=== PATIENT | female | born 2005 | race Caucasian/White ===

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

== ENCOUNTER 2024-11-25 13:23 | Outpatient (OUT) | payer OTHER, SELFPAY ==
--- OUTSIDE RECORDS SUMMARY | 2024-11-25 13:27 | XMS_ITS | Encounter Summary ---
Author Organization [facility] Address [address] [place] [address] Care Team Providers Care Business Development Assistant Name Role Phone Unavailable Primary Care Provider Unavailabl e Encounter Details Date Type Department Care Team (Late st Contact Info) Description 11/22/2023 Clinisync Result Encounter [facility] External Department Unsolicited Rogelio Rm DO [address] [place], [place] [id number] Social History Tobacco Use Types Packs/Day Years Used Date Smoking Tobacco: Every Day Smokeless Tobacco: Never Alcohol Use Standard Drinks/Week Comments Never 0 (1 standard drink = 0.6 oz pur e alcohol) Comments No Sex and Gender Information Value Date Recorded Sex Assigned at Female 10/15/2023 9:14 AM EDT Legal Sex Female 7:14 PM EDT Gender Identity Female 10/15/2023 9:14 AM EDT Sexual Orientation Straight 10/15/2023 9: 14 AM EDT documented as of this encounter Plan of Treatment Upcoming Encounters Date Type Department Care Team (Late st Contact Info) Description 12/14/2024 11:30 AM EDT Office Visit [facility] OB [address] [place] [phone] Jocelyne Odell PA [address] [place] [address] documented as of this encounter Procedures Procedure Name Priority Date/Time Associated Diagnosis Comments US PELVIS 11/22/2023 11:14 AM EDT documented in this encounter Results * US PELVIS (11/22/2023 11:14 AM EDT) Anatomical Region Laterality Modality Other 11/22/2023 11:1 4 AM EDT Narrative 11/23/2023 8:12 AM EDT Interpreted By: Josie Calix, STUDY: US PELVIS; 11/22/2023 12:32 pm INDICATION: Signs/Symptoms:PELVIC PAIN. COMPARISON: No prior ACCESSION NUMBER(S): [id number] ORDERING CLINICIAN: ROGELIO RM TECHNIQUE: Multiple multiplanar static vilchis scale, color and spectral waveform sonographic images of the pelvis were obtained. Transabdominal ultrasound was performed. Patient declined transvaginal imaging. FINDINGS: UTERUS: The uterus measures 5.7 cm x 3.8 cm x 8.1 cm. The myometrium is mildly heterogeneous with no focal mass visualized. The uterus is anteverted. ENDOMETRIUM: The endometrium measures a thickness of 0.3 cm, which is normal. IUD is present, in the expected position of the endometrium in the uterine body and fundus. Trace endometrial canal fluid noted. RIGHT ADNEXA: The right ovary measures 2.2 cm x 1.5 cm x 3.3 cm and demonstrates normal Doppler flow. No right adnexal masses are seen, no hydrosalpinx. LEFT ADNEXA: The left ovary measures 2.5 cm x 1.8 cm x 3.2 cm and demonstrates normal Doppler flow. No left adnexal masses are seen, no hydrosalpinx. CUL DE SAC: No free pelvic fluid. IMPRESSION: 1. IUD is in the expected position. Uterus and ovaries appear normal. MACRO: None Signed by: Josie Calix 11/23/2023 8:12 AM Dictation workstation: [id number] Procedure Note Radiology, Radiologist, MD - 11/23/2023 Interpreted By: Josie Calix, STUDY: US PELVIS; 11/22/2023 12:32 pm INDICATION: Signs/Symptoms:PELVIC PAIN. COMPARISON: No prior ACCESSION NUMBER(S): [id number] ORDERING CLINICIAN: ROGELIO RM TECHNIQUE: Multiple multiplanar static vilchis scale, color and spectral waveform sonographic images of the pelvis were obtained. Transabdominal ultrasound was performed. Patient declined transvaginal imaging. FINDINGS: UTERUS: The uterus measures 5.7 cm x 3.8 cm x 8.1 cm. The myometrium is mildly heterogeneous with no focal mass visualized. The uterus is anteverted. ENDOMETRIUM: The endometrium measures a thickness of 0.3 cm, which is normal. IUD is present, in the expected position of the endometrium in the uterine body and fundus. Trace endometrial canal fluid noted. RIGHT ADNEXA: The right ovary measures 2.2 cm x 1.5 cm x 3.3 cm and demonstrates normal Doppler flow. No right adnexal masses are seen, no hydrosalpinx. LEFT ADNEXA: The left ovary measures 2.5 cm x 1.8 cm x 3.2 cm and demonstrates normal Doppler flow. No left adnexal masses are seen, no hydrosalpinx. CUL DE SAC: No free pelvic fluid. IMPRESSION: 1. IUD is in the expected position. Uterus and ovaries appear normal. MACRO: None Signed by: Josie Calix 11/23/2023 8:12 AM Dictation workstation: [id number] Rogelio Rm DO [facility] Final Result documented in this encounter Visit Diagnoses Not on filedocumented in this encounter
--- OUTSIDE RECORDS SUMMARY | 2024-11-25 13:27 | XMS_ITS | Clinical Summary ---
Author Organization [facility] Address [address] [place] [address] Care Team Providers Care Photovoltaic Testing Technician Name Role Phone Unavailable Primary Care Provider Unavailabl e Allergies No known active allergies Medications Vit-Fe Fumarate-FA ( VITAMIN PO) Take by mouth. Active Active Problems Patient Care Coordination No te Formatting of this note migh t be different from the original. No PCP. No additional problems on file Encounters Date Type Department Care Team Description 08/28/2024 4:47 PM EDT - 08/28/2024 8:10 PM EDT Emergency [facility] Emergency Department [address] [place] [phone] Discharge Disposition: Home or Self Care 08/28/2024 Travel from Last 3 Months Social History Tobacco Use Types Packs/Day Years Used Date Smoking Tobacco: Never Smokeless Tobacco: Never Tobacco Cessation:Counseling Given: Not Answered Alcohol Use Standard Drinks/Week Comments Never 0 (1 standard drink = 0.6 oz pur e alcohol) [place] Depression Scale Answer Date Recorded [place] Depression Score 0 11/29/2022 Thought Of Harming Self Unrecognized value 11/29 Comments No Sex and Gender Information Value Date Recorded Sex Assigned at Not on file Legal Sex Female 12:28 AM EDT Gender Identity Not on file Sexual Orientation Not on file Last Filed Vital Signs Vital Sign Reading Time Taken Comments Blood Pressure 109/58 08/28/2024 6:30 PM EDT Pulse 87 08/28/2024 6:30 PM EDT Temperature 37 C (98.6 F) 08/28/2024 4:45 PM EDT Respiratory Rate 16 08/28/2024 4:45 PM EDT Oxygen Saturation 100% 08/28/2024 6:30 PM EDT Inhaled Oxygen Concentration - - Weight 61.2 kg (135 lb) 11/29/2022 2:52 PM EDT Height 160 cm (5' 3 ) 11/28/2022 9:30 AM EDT Body Mass Index 23.91 11/28/2022 9:30 AM EDT Plan of Treatment Health Maintenance Due Date Last Done Comments HEPATITIS C VIRUS SCREENING 2004 HIV SCREENING DISCUSSION 10/26/2019 HPV VACCINE ADOL (1 - 3-dose series) 10/26/2019 HPV VACCINE (1 - 3-dose series) 10/26/2019 CHLAMYDIA SCREEN 11/08/2023 11/07/2022 GONORRHEA SCREEN 11/08/2023 11/07/2022 COVID-19 VACCINE ( season) 2024 INFLUENZA VACCINE (#1) 01/25/202504/18/200 9, 04/30/2006, 05/16/2005 TETANUS 10/08/2032 10/08/2022, 11/25, 05/16/2005, Additional history exists HEP B VACCINE Completed 05/16/2005, 04/27, 01/10/2005, Additional history exists HIB VACCINE Discontinued 04/30/2006, 04/27, 04/03/2005, Additional history exists PNEUMOCOCCAL VACCINE SERIES Aged Out 04/30/2006, 01/21/2006, 05/16/2005, Additional history exists No longer eligible based on patient's age to complete this topic MMR VACCINE Discontinued 08/23/2009, 04/30/2006 VARICELLA VACCINE Discontinued 08/23/2009, 01/21/2006 MCV4 VACCINE Discontinued 12/18/2016 DTAP/TDAP/TD VACCINE Discontinued 10/08/2022, 12/18/2016, 08/23/2009, Additional history exists TDAP (ADULT) Completed 10/08/2022, 11/25, 05/16/2005, Additional history exists Procedures Procedure Name Priority Date/Time Associated Diagnosis Comments US PELVIC W TRANSVAGINAL STAT 08/28/2024 5:57 PM EDT URINE MICROSCOPIC Routine 08/28/2024 5:2 1 PM EDT URINALYSIS, MACRO STAT 08/28/2024 5:2 1 PM EDT URINE CULTURE Routine 08/28/2024 5:21 PM EDT CA 125 STAT 08/28/2024 5:15 PM EDT HC CBC EDIFF & PLATELET STAT 08/28/2024 5:15 PM EDT BETA HCG, QUAL, BLOOD STAT 08/28/2024 5:15 PM EDT LIPASE STAT 08/28/2024 5:15 PM EDT HEPATIC FUNCTION PANEL STAT 08/28/2024 5:15 PM EDT CHEM 7 (LYTES,BUN,CREA,GLUC) STAT 08/28/2024 5:15 PM EDT CHLAMYDIA/GONOCOCCUS, KRZYSZTOF Today 11/07/2022 1:15 AM EDT from Last 3 Months or Most Recently Relevant to Health Maintenance Results * US PELVIC W TRANSVAGINAL (08/28/2024 5:57 PM EDT) Anatomical Region Laterality Modality Pelvis Ultrasound 08/28/2024 5:13 PM EDT Impressions 08/28/2024 7:41 PM EDT IMPRESSION: 1. A complex 4.86 cm partially cystic hypoechoic mass within the right adnexal region may be an endometrioma or hemorrhagic cyst. No hypervascularity to suggest a tubo-ovarian abscess is seen. Correlation with the patient's status is recommended as an ectopic would be in the differential. If this is the right ovary, blood flow was not documented to exclude torsion. 2. Normal left ovary. 3. IUD in place. Narrative 08/28/2024 7:41 PM EDT EXAM: US PELVIC W TRANSVAGINAL HISTORY: pelvic pain COMPARISON: October 22, 2023 TECHNIQUE: Transabdominal and endovaginal ultrasound of the pelvis with grayscale and Doppler interrogation FINDINGS: The uterus is anteverted, measuring 9.45 cm in length x 3.71 cm AP x 6.15 cm transverse. There is an IUD within the endometrial canal centered at the uterine body and fundus. The endometrium was not measured. There is a complex partially cystic hypoechoic mass within the right adnexal region measuring 4.86 x 4.11 x 3.42 cm. The left ovary measured 2.78 x 1.86 x 2.37 cm. Blood flow within the left ovary documented with color Doppler. No significant free fluid within the pelvis. Procedure Note Demarco Hernandez MD - 08/28/2024 EXAM: US PELVIC W TRANSVAGINAL HISTORY: pelvic pain COMPARISON: October 22, 2023 TECHNIQUE: Transabdominal and endovaginal ultrasound of the pelvis with grayscale and Doppler interrogation FINDINGS: The uterus is anteverted, measuring 9.45 cm in length x 3.71 cm AP x 6.15cm transverse. There is an IUD within the endometrial canal centered at the uterine body and fundus. The endometrium was not measured. There is a complex partially cystic hypoechoic mass within the rightadnexal region measuring 4.86 x 4.11 x 3.42 cm. The left ovary measured 2.78 x1.86 x 2.37 cm. Blood flow within the left ovary documented with color Doppler.No significant free fluid within the pelvis. IMPRESSION IMPRESSION: 1. A complex 4.86 cm partially cystic hypoechoic mass within the rightadnexal region may be an endometrioma or hemorrhagic cyst. No hypervascularity to suggest a tubo-ovarian abscess is seen. Correlation with the patient's status is recommended as an ectopic would be in the differential. If this is the right ovary, blood flow was not documented to exclude torsion. 2. Normal left ovary. 3. IUD in place. us Ketty Hoover PA-C US ORDERABLES Final Result * (ABNORMAL) URINALYSIS, MACRO (08/28/2024 5:21 PM EDT) Color, Urine YELLOW YELLOW [address] Appearance, Urine CLEAR CLEAR [address] Specific [place], Urine 1.020 1.010 - 1.[address] PH URINE 7.5(H) 5.0 - 7.[address] Urine Protein 100(A) NEGATIVE mg/dl [address] Glucose, Urine NEGATIVE NEGATIVE mg/dl [address] Ketones, Urine NEGATIVE NEGATIVE mg/dl [address] BILIRUBIN, URINE NEGATIVE NEGATIVE [address] BLOOD, URINE DIPSTICK LARGE(A) NEGATIVE [address] Nitrites, Urine NEGATIVE NEGATIVE [address] Urobilinogen, Urine 0.2 0.2 - 1.0 E.U./dL [address] Leukocyte esterase, Urine NEGATIVE NEGATIVE [address] 08/28/2024 5:21 PM EDT 08/28/2024 5:38 PM EDT us Ketty Hoover PA-C BODY FLUIDS & STOOLS ORDERABLES Final Result [address] [place] [address] * URINE MICROSCOPIC (08/28/2024 5:21 PM EDT) WBC, Urine NEGATIVE NEGATIVE /HPF [address] RBC, Urine 5 TO 10 NEGATIVE /HPF [address] Epithelial Cells UA 1 TO 5 /HPF [address] Mucus NEGATIVE NEGATIVE [address] Bacteria, Urine NEGATIVE NEGATIVE [address] CRYSTALS, URINE NONE NONE [address] CASTS, URINE NONE NONE /LPF [address] COMMENT, URINE REFLEX CULTURE PER ESTABLISHED CRITERIA. [address] 08/28/2024 5:21 PM EDT 08/28/2024 5:38 PM EDT Ketty Hoover PA-C BODY FLUIDS & STOOLS ORDERABLES Final Result [address] [address] * URINE CULTURE (08/28/2024 5:21 PM EDT) SPECIMEN DESCRIPTION URINE CLEAN CATCH [address] RESULT-CULT NO PATHOGENS ISOLATED [address] Comment:Testing performed at [place], [place] [address] Report Status 08/31/[address] Comment:FINAL 08/28/2024 5:21 PM EDT 08/28/2024 5:38 PM EDT Ketty Hoover PA-C MICROBIOLOGY - GENERAL ORDERABLE S Final Result Performing Organization Address [facility]/ZIP Co de Phone Number [address] [place] [address] [address] * BETA HCG, QUAL, BLOOD (08/28/2024 5:15 PM EDT) BETA HCG (QUAL), SERUM NEGATIVE NEGATIVE [address] Blood 08/28/2024 5:15 PM EDT 08/28/2024 5:18 PM EDT Ketty Hoover PA-C ENDOCRINOLOGY Final Result [address] [place] [address] * (ABNORMAL) CHEM 7 (LYTES,BUN,CREA,GLUC) (08/28/2024 5:15 PM EDT) Glucose 91 70 - 100 MG/DL [address] Comment: NORMAL <100 mg/dL PREDIABETES 101-126 mg/dL DIABETES 126 mg/dL or higher BUN 18 7 - 20 MG/DL [address] CREATININE SERUM 0.58(L) 0.70 - 1.20 MG/DL [address] SODIUM 143 137 - 145 MMOL/L [address] Potassium 3.8 3.5 - 5.1 MMOL/L [address] CHLORIDE 101 98 - 107 MMOL/L [address] Comment:Please note: Triglyc eride levels of 600mg/dL or higher may positively bias chloride results by approximately 2.1 mmol CARBON DIOXIDE (CO2) 29 22 - 30 MMOL/L [address] ESTIMATED GFR, NON AMER 142 ml/min/1. 73sq.m [address] ESTIMATED GFR, 172 ml/min/1. 73sq.m [address] GFR COMMENT Average GFR for 18-29 years old = 116. [address] Comment: Chronic Kidney disease, GFR = <60. Kidney failure, GFR = <15. The GFR estimate is not adjusted for extreme body surface area or acute process, nor has it been validated for women or ethnic groups other than and . Blood 08/28/2024 5:15 PM EDT 08/28/2024 5:18 PM EDT us Ketty Hoover PA-C CHEMISTRY ORDERABLES Final Resul t [address] [place] [address] * CBC, EDIF, PLATELET (08/28/2024 5:15 PM EDT) WBC (WHITE BLOOD COUNT) 9.6 3.6 - 11.0 10*3/uL [address] RBC 4.81 4.0 - 5.4 10*6/uL [address] HEMOGLOBIN (HGB) 13.3 12.0 - 16.0 G/DL [address] HEMATOCRIT (HCT) 40.8 36.0 - 48.0 % [address] Mean Cell Volume 84.8 80.0 - 100.[address] Mean Cell HGB 27.6 26.0 - 35.[address] Mean Cell HGB Concentration 32.6 27.0 - 37.0 G/DL [address] RBC Distribution 14.3 11.5 - 14.5 % [address] PLATELET COUNT 298 130 - 400 10*3/uL [address] Mean Platelet Volume 7.5 7.4 - 11.[address] DIFFERENTIAL TYPE AUTO DIFF % ON [address] NEUTROPHILS 57.2 37.0 - 75.0 % [address] LYMPHOCYTE 31.4 20.0 - 55.0 % [address] MONOCYTE % 7.7 0.0 - 10.0 % [address] EOSINOPHIL % 3.1 0.0 - 11.0 % [address] BASOPHIL % 0.6 0.0 - 2.0 % [address] Absolute Neutrophil Count 5.5 1.4 - 6.5 10*3/uL [address] LYMPHOCYTES, ABSOLUTE 3.0 1.2 - 3.4 10*3/uL [address] MONOCYTES, ABSOLUTE 0.7 0.0 - 0.7 10*3/uL [address] ABSOLUTE EOSINOPHIL COUNT 0.3 0.0 - 0.7 10*3/uL [address] ABSOLUTE BASOPHIL COUNT 0.1 0.0 - 0.2 10*3/uL [address] Blood 08/28/2024 5:15 PM EDT 08/28/2024 5:18 PM EDT Ketty ROGER-C HEMATOLOGY ORDERABLES Final Resu lt Performing Organization Address City/[facility]/ZIP Co de Phone Number [address] [address] * CA 125 (08/28/2024 5:15 PM EDT) CA125 Cancer Ag 7.4 [facility] Comment: Reference range: 0.0 to 38.1 Unit: U/mL (NOTE) [facility] Electrochemiluminescence Immunoassay (ECLIA) Values obtained with different assay methods or kits cannot be used interchangeably. Results cannot be interpreted as absolute evidence of the presence or absence of malignant disease. PERFORMED AT [facility] Blood 08/28/2024 5:15 PM EDT 08/28/2024 7:57 PM EDT Ketty ROGER-C IMMUNOLOGY ORDERABLES Final Resu lt Performing Organization Address [facility] Co de Phone Number [facility] [address] [place] [address] * LIPASE (08/28/2024 5:15 PM EDT) LIPASE 37 23 - 300 U/L [address] Blood 08/28/2024 5:15 PM EDT 08/28/2024 5:18 PM EDT Ketty ROGER-C CHEMISTRY ORDERABLES Final Resul t Performing Organization Address City/[facility]/ZIP Co de Phone Number [address] [address] * HEPATIC FUNCTION PANEL (08/28/2024 5:15 PM EDT) Albumin 4.9 3.5 - 5.0 G/DL [address] BILIRUBIN, TOTAL 0.3 0.2 - 1.3 MG/DL [address] ALKALINE PHOSPHATASE 52 38 - 126 IU/L [address] AST 28 14 - 36 IU/L [address] BILIRUBIN, DIRECT 0.0 0.0 - 0.4 MG/DL [address] PROTEIN, TOTAL 7.7 6.3 - 8.2 GM/DL [address] ALT 16 <35 IU/L [address] Blood 08/28/2024 5:15 PM EDT 08/28/2024 5:18 PM EDT Ketty Hoover PA-C CHEMISTRY ORDERABLES Final Resul t [address] [address] * CHLAMYDIA/GONOCOCCUS, KRZYSZTOF (11/07/2022 1:15 AM EDT) CHLAMYDIA TRACHOMATIS NOT DETECTED NOT DETECTED [address] NEISSERIA GONORRHOEAE NOT DETECTED NOT DETECTED [address] Vaginal Pool SPECIMEN FROM VAGINA / Unknown 11/07/2022 1:15 AM EDT 11/07/2022 2:13 AM EDT Meagan Jones MD MICROBIOLOGY - GENERAL ORDERA BLES Final Result [address] [address] from Last 3 Months or Most Recently Relevant to Health Maintenance Insurance [facility] Advance Directives For more information, please contact: [phone] (7:30 AM - 6PM [facility], Saturday-Saturday) * Full Code (Latest Code Status on File) Date Activated Date Inactivated Comments 11/29/2022 2:25 PM
--- OUTSIDE RECORDS SUMMARY | 2024-11-25 13:27 | XMS_ITS | Encounter Summary ---
Author Organization [facility] Address [address] [place] [address] Care Team Providers Care Gas Well Drilling Manager Name Role Phone Unavailable Primary Care Provider Unavailabl e Encounter Details Date Type Department Care Team (Late st Contact Info) Description 11/08/2023 Abstract [facility] OB [address] [place] [address] Gemini Aleman LPN [address] [place] [address] Social History Tobacco Use Types Packs/Day Years [...] EDT Office Visit [facility] [address] [place] [address] Jocelyne Odell PA [address] [facility] [address] documented as of this encounter Visit Diagnoses Not on filedocumented in this encounter
--- OUTSIDE RECORDS SUMMARY | 2024-11-25 13:27 | XMS_ITS | Clinical Summary ---
Author Organization [facility] Address [address] [place] [address] Phone Care Team Providers Care Malthouse Laborer Name Role Phone Generic Provider, No Assigned Pcp MD Primary Car e Provider Unavailable Allergies No known active allergies Medications medroxyPROGESTER one, 3-month, (Depo-subQ provera 104) 104 mg/0.65 mL injection Inject 0.65 mL (104 mg) under the skin every 3 months. Active Social History Tobacco Use Types Packs/Day Years Used Date Smoking Tobacco: Never Assessed Comments No Sex and Gender Information Value Date Recorded Sex Assigned at Not on file Legal Sex Female 1:44 PM EDT Gender Identity Not on file Sexual Orientation Straight 10/18/2023 5: 13 PM EDT Last Filed Vital Signs Vital Sign Reading Time Taken Comments Blood Pressure 108/69 10/18/2023 1:22 PM EDT Pulse 111 10/18/2023 1:22 PM EDT Temperature 36.6 C (97.9 F) 10/18/2023 1:22 PM EDT Respiratory Rate 16 10/18/2023 1:22 PM EDT Oxygen Saturation 97% 10/18/2023 1:22 PM EDT Inhaled Oxygen Concentration - - Weight 54.4 kg (120 lb) 10/18/2023 1:22 PM EDT Height 160 cm (5' 3 ) 10/18/2023 1:22 PM EDT Body Mass Index 21.26 10/18/2023 1:22 PM EDT Plan of Treatment Health Maintenance Due Date Last Done Comments HIV Screening 2004 Lipid Panel 2004 Hearing Screening (#1) 2008 HPV Vaccines (1 - 3-dose series) 10/26/2019 Meningococcal B Vaccine (1 of 2 - Standard) 2020 Hepatitis C Screening 2022 Pneumococcal Vaccine: Pediatrics and At-Risk Adult Patients (1 of 2 - PCV) 10/26/2023 04/30/2006, 01/21/2006, 05/16/2005, Additional history exists COVID-19 Vaccine ( - season) 2024 Yearly Adult Physical 06/05/2024 06/04/2023 Influenza Vaccine (Season Ended) 2025 04/18/2009, 04/30/2006, 05/16/2005 DTaP/Tdap/Td Vaccines (8 - Td or Tdap) 10/08/2032 10/08/2022, 12/18/2016, 08/23/2009, Additional history exists Zoster Vaccines (1 of 2) 2054 08/23/2009, 12/26 Hepatitis B Vaccines Completed 05/16/2005, 01/10/2005, 2004 HIB Vaccines Completed 04/30/2006, 04/27, 04/03/2005, Additional history exists IPV Vaccines Completed 08/23/2009, 04/27, 04/03/2005, Additional history exists MMR Vaccines Completed 08/23/2009, 04/30/2006 Varicella Vaccines Completed 08/23/2009, 01/21/2006 Meningococcal Vaccine Aged Out 12/18/2016 No enma tree eligible based on patient's age to complete this topic Hepatitis A Vaccines Aged Out No long er eligible based on patient's age to complete this topic Rotavirus Vaccines Aged Out No longer eligible based on patient's age to complete this topic [place] [address] [place] [address] PLAN PLAN Care Teams Malthouse Laborer Relationship Specialty Start Date End Date Generic Provider, [place] [address] PCP - General Hides And Skins Colorer 10/18/23
--- OUTSIDE RECORDS SUMMARY | 2024-11-25 13:27 | XMS_ITS | Encounter Summary ---
Author Organization [facility] Address [address] [place] [address] Phone Care Team Providers Care Community Relations Representative Name Role Phone Generic Provider, No Assigned Pcp Primary Car e Provider Unavailable Encounter Details Date Type Department Care Team (Latest Contact Info) Description 11/20/2023 Transcribe Orders [facility] [address] [place] [address] Ross Rm, DO [address] [facility] [address], [place] [address] Pelvic and perineal pain (Primary Dx) Social History Tobacco Use Types Packs/Day Years Used Date Smoking Tobacco: Never Assessed Comments No Sex and Gender Information Value Date Recorded Sex Assigned at Not on file Legal Sex Female 1:44 PM EDT Gender Identity Not on file Sexual Orientation Straight 10/18/2023 5: 13 PM EDT COVID-19 Exposure Response Date Recorded In the last 10 days, have yo u been in contact with someone who was confirmed or suspected to have Coronavirus/COVID-19? No / Unsure 11/22/2023 11:11 AM EDT documented as of this encounter Plan of Treatment Not on file documented as of this encounter Visit Diagnoses Diagnosis Pelvic and perineal pain- Primary documented in this encounter Care Teams Community Relations Representative Relationship Specialty Start Date End Date Generic Provider, No [place] [address] PCP - General Professor Of Geography 10/18/23 documented as of this encounter
--- NOTE | 2024-11-25 13:51 | XR_ITS ---
The [address] [address] Patient Name: CONCHA ALARCON MRN: [id number] date: 2005 Sex: F [facility] Current Patient Location: [facility] Accession/Order Number: [id number] Exam Date: 11/25/2024 14:48 Report Date: 11/25/2024 14:48 At the request of: ROGELIO MOLINA DO Procedure: XR chest 2V Chest 2 views CLINICAL HISTORY: Pre Op COMPARISON: None FINDINGS: Heart normal in size. Lungs are clear. No free air. XR/XR chest 2V IMPRESSION: NO ACUTE CARDIOPULMONARY ABNORMALITY. Impression dictated by: Rosanne Light Jr.OAzul 11/25/2024 2:48 PM Dictation Location: [place] [address] Electronically authenticated by: [id number] Y Date: 11/25/2024 14:48
== END 2024-11-25 13:24 | disposition home or self-care (01) ==
PROVIDERS: Visit Provider Obstetrics & Gynecology
DX: Z01.812 Encounter for preprocedural laboratory examination (principal); N83.201 Unspecified ovarian cyst, right side; R10.2 Pelvic and perineal pain
CPT/HCPCS: 71046

== ENCOUNTER 2024-12-04 06:03 | Day surgery (SDC) | payer OTHER, SELFPAY ==
[2024-11-25 13:58] VITALS: BP 116/74; PULSE 96; TEMP 36.5; O2SAT 100; BMI 19.0
[2024-12-04] VITALS (12 sets, daily range): BP systolic 95–129; BP diastolic 50–69; PULSE 49–90; TEMP 36.1–36.3; O2SAT 96–100
--- OUTSIDE RECORDS SUMMARY | 2024-12-04 06:06 | XMS_ITS | Clinical Summary ---
Author Organization [facility] Address [address] [place] [address] Phone Care Team Providers Care Medical Or Surgical Instrument Maker Name Role Phone Generic Provider, No Assigned [...] 01/21/2006, 05/16/2005, Additional history exists COVID-19 Vaccine (1 - season) 2024 Yearly Adult Physical 06/05/2024 06/04/2023 Influenza Vaccine (#1) 2025 9, 04/30/2006, 05/16/2005 DTaP/Tdap/Td Vaccines (8 - Td [...] patient's age to complete this topic Insurance [facility] PLAN PLAN Care Teams Medical Or Surgical Instrument Maker Relationship Specialty Start Date End Date Generic Provider, No [place] [address] PCP - General Designer Writer 10/18/23
--- OUTSIDE RECORDS SUMMARY | 2024-12-04 06:06 | XMS_ITS | Clinical Summary ---
Author Organization [facility] Address [address] [place] [address] Care Team Providers Care Oncology Rn Name Role Phone Unavailable Primary Care Provider Unavailabl e Allergies No known active allergies Medications Acetaminophen (MIDOL PO) Take by mouth Active ibuprofen 600 MG tablet Take 1 tablet by mouth every 6 (six) hours if needed 07/17/2023 Active desogestrel-ethi nyl estradiol (Apri) 0.15-30 MG-MCG tabletIndication s:Abnormal bleeding in menstrual cycle Take 1 tablet by mouth Daily for 28 days Take 1 tablet by mouth daily 28 tablet 11 09/30/2024 Active Hospital, Clinic, or Other Facility Administered Medication Ordered Dose Route Frequency Start Date End Date Status Levonorgestrel intrauterine device 52 mgIndications:Encoun ter for IUD insertion 52 mg IU Continuous 10/28/2023 11/05/2024 Discontinued Active Problems Problem Noted Date Diagnosed Date Encounter for weight management 11/05/2024 Right ovarian cyst 11/05/2024 Pelvic pain 11/05/2024 Encounters Date Type Department Care Team Description 11/25/2024 Clinisync Result Encounter [facility] External Department Unsolicited Rogelio Rm DO 11/05/2024 10:10 AM EDT Consult [facility] [address] [place] [address] Rogelio Rm DO Pre-op examination; Pelvic pain; Right ovarian cyst 11/03/2024 11:00 AM EDT Ancillary Procedure [facility] [address] [place] [address] Encounter for IUD removal 09/30/2024 Telephone [facility] [address] [place] [id number] Rogelio Rm DO 09/28/2024 2:30 PM EDT Procedure Visit [facility] [address] [facility] [address] Sujey Rogelio Right ovarian cyst (Primary Dx); Encounter for IUD removal; Pelvic pain in female from Last 3 Months Family History Medical History Relation Name Comments Cancer Maternal Grandmother Samaria rausch Migraines Mother Jing Eckert Diabetes Paternal Grandfather Damon ardon Relation Name Status Comments Maternal Grandmother Samaria rausch Mother Jing Eckert Paternal Grandfather Damon ardon Social History Tobacco Use Types Packs/Day Years Used Date Smoking Tobacco: Every Day Smokeless Tobacco: Never Tobacco Cessation:Ready to Q uit: Not Asked; Counseling Given: Not Answered Alcohol Use Standard Drinks/Week Comments Never 0 (1 standard drink = 0.6 oz pur e alcohol) Comments No Sex and Gender Information Value Date Recorded Sex Assigned at Female 10/15/2023 9:14 AM EDT Legal Sex Female 7:14 PM EDT Gender Identity Female 10/15/2023 9:14 AM EDT Sexual Orientation Straight 10/15/2023 9: 14 AM EDT Last Filed Vital Signs Vital Sign Reading Time Taken Comments Blood Pressure 112/70 11/05/2024 10:34 AM EDT Pulse - - Temperature - - Respiratory Rate - - Oxygen Saturation - - Inhaled Oxygen Concentration - - Weight 49.1 kg (108 lb 4 oz) 11/05/2024 10:34 AM EDT Height 160 cm (5' 3 ) 11/25/2023 10:09 AM EDT Body Mass Index 19.18 11/25/2023 10:09 AM EDT Plan of Treatment Upcoming Encounters Date Type Department Care Team (Late st Contact Info) Description 12/14/2024 11:30 AM EDT Office Visit [facility] [address] [facility] [place] [phone] Jocelyne Odell PA [address] [place] [address] Procedures Procedure Name Priority Date/Time Associated Diagnosis Comments XR CHEST 2V 11/25/2024 2:48 PM EDT US PELVIS Routine 11/03/2024 10:50 AM EDT Encounter for IUD removal IUD REMOVAL Routine 09/28/2024 3:41 PM EDT Encounter for IUD removal Right ovarian cyst Pelvic pain in female from Last 3 Months Results * XR CHEST 2V (11/25/2024 2:48 PM EDT) Anatomical Region Laterality Modality Other 11/25/2024 2:48 PM EDT Narrative 11/25/2024 2:51 [place] [address] XRay Report Signed Patient: ELI ARDON MR#: [id number] : 2005 Acct:[id number] Age/Sex: 19 / F ADM Date: 11/25/24 Loc: [facility] Attending Dr: Rogelio Rm D.O. Ordering Physician: Rogelio Rm D.O. Date of Service: 11/25/24 Procedure(s): XR chest 2V Accession Number(s): [id number] cc: Rogelio Rm D.O.; Physician,Non-Staff M.Rosanne The [place] [address] Patient Name: ELI ARDON MRN: [facility]:[id number] date: 2005 Sex: F [facility] Current Patient Location: [facility] Accession/Order Number: [id number] Exam Date: 11/25/2024 14:48 Report Date: 11/25/2024 14:48 At the request of: ROGELIO RM DO Procedure: XR chest 2V Chest 2 views CLINICAL HISTORY: Pre Op COMPARISON: None FINDINGS: Heart normal in size. Lungs are clear. No free air. XR/XR chest 2V IMPRESSION: NO ACUTE CARDIOPULMONARY ABNORMALITY. Impression dictated by: oRsanne Light Jr.OAzul 11/25/2024 2:48 PM Dictation Location: [facility] Electronically authenticated by: [id number] Y Date: 11/25/2024 14:48 Dictated By: Francisco J Flanagan M.D. Signed By: 11/25/24 1451 DD/ 1448 TD/TT: C2 Tactical Analysis Technician: Procedure Note Radiology, Radiologist, MD - 11/25/2024 [place] [address] XRay Report Signed Patient: YVES ARDONR#: [id number] : 2005Acct:[id number] Age/Sex: 19 / FADM Date: 11/25/24 Loc: [facility] Attending Dr: Rogelio Rm D.O. Ordering Physician: Rogelio Rm D.O. Date of Service: 11/25/24 Procedure(s): XR chest 2V Accession Number(s): [id number] cc: Rogelio Rm D.O.; Physician,Non-Staff Wilberto The [place] [id number] Patient Name: ELI ARDON MRN: [facility]:[id number] date: 2005 Sex: F Assigned Patient Location: [facility] Current Patient Location: [facility] Accession/Order Number: [id number] Exam Date: 11/25/2024 14:48 Report Date: 11/25/2024 14:48 At the request of: ROGELIO RM DO Procedure: XR chest 2V Chest 2 views CLINICAL HISTORY: Pre Op COMPARISON: None FINDINGS: Heart normal in size. Lungs are clear. No free air. XR/XR chest 2V IMPRESSION: NO ACUTE CARDIOPULMONARY ABNORMALITY. Impression dictated by: Francisco J Flanagan Jr., D.O. 11/25/2024 2:48 PM Dictation Location: [facility] Electronically authenticated by: [id number] Y Date: 4:48 Dictated By: Francisco J Flanagan M.D. Signed By:11/25/24 1451 DD/ 1448 TD/TT: C2 Tactical Analysis Technician: us Rogelio Rm DO [facility] Final Result * US pelvis (11/03/2024 10:50 AM EDT) Anatomical Region Laterality Modality Pelvis Ultrasound Narrative 11/04/2024 8:25 AM EDT EXAM: US PELVIC COMPLETE W/ TV HISTORY: Right lower quadrant pain, history of ovarian cysts, IUD removed 1 month ago. COMPARISON: None available. TECHNIQUE: Two-dimensional transabdominal grayscale ultrasound imaging of the pelvis was performed. Color flow Doppler imaging of the ovaries were also performed. Transvaginal was not performed. FINDINGS: UTERUS 8.9 x 4.3 x 7.1 cm The uterus is anteverted in position and demonstrates a normal, homogeneous echotexture. ENDOMETRIUM 1.0 cm The endometrium demonstrates a normal, homogeneous echotexture. RIGHT OVARY 3.1 x 1.0 x 2.9 cm The right ovary demonstrates a normal echotexture. There is normal color Doppler flow. LEFT OVARY 2.1 x 1.3 x 1.7 cm The left ovary demonstrates a normal echotexture. There is normal color Doppler flow. No fluid is present within the cul-de-sac. IMPRESSION: 1. Unremarkable ultrasound of the pelvis. 2. Normal color Doppler flow within the bilateral ovaries. Interpreted by: Electronically signed by MACKENZIE HAN II, MD, PHD at 04-Nov-2024 08:24:05 AM [facility] Teleradiology us Shu Diop NP IMG US PROCEDURES Edited Resu lt - Final * IUD Removal (09/28/2024 3:41 PM EDT) Narrative Rogelio Rm DO - 09/28/2024 3:41 PM EDT Rogelio Rm DO 09/30/2024 5:08 PM IUD Removal Date/Time: 09/28/2024 3:41 PM Performed by: Rogelio Rm DO Authorized by: Rogelio Rm DO Consent: Consent obtained: Written Consent given by: Patient Procedure risks and benefits discussed: yes Patient questions answered: yes Patient agrees, verbalizes understanding, and wants to proceed: yes Educational handouts given: no Instructions and paperwork completed: yes Procedure: Removed with no complications: yes Removal due to mechanical complications of IUD: no Removal due to infection and inflammatory reaction: no Rogelio Rm DO IN CLINIC/BEDSIDE ORDERABLES John stack Result from Last 3 Months Insurance [employer]
--- OUTSIDE RECORDS SUMMARY | 2024-12-04 06:06 | XMS_ITS | Encounter Summary ---
Author Organization [facility] Address [address] [place] [address] Care Team Providers Care Die Attaching Machine Tender Name Role Phone Unavailable Primary Care Provider Unavailabl e Encounter Details Date Type Department Care Team (Late st Contact Info) Description 11/08/2023 Abstract [facility] [address] [facility] [place] [address] Gemini Aleman LPN [address] [place] [address] Social History Tobacco Use Types [...] EDT Office Visit [facility] [address] [facility] [place] [address] Jocelyne Odell PA [address] [facility] [place] [address] documented as of this encounter Visit Diagnoses Not on filedocumented in this encounter
--- OUTSIDE RECORDS SUMMARY | 2024-12-04 06:06 | XMS_ITS | Encounter Summary ---
Author Organization [facility] Address [address] [place] [address] Care Team Providers Care Spike Machine Heater Name Role Phone Unavailable Primary Care Provider Unavailsteven e Encounter Details Date Type Department Care Team (Late Contact Info) Description 11/25/2024 Clinisync Result Encounter [facility] External Department Unsolicited Rogelio Rm DO [address] [place] [address] Social History Tobacco Use Types Packs/Day Years [...] EDT Office Visit [facility] [address] [facility] [place] [phone] Jocelyne Odell PA [address] [place] [address] documented as of this encounter Procedures Procedure Name Priority Date/Time Associated Diagnosis Comments XR CHEST 2V 11/25/2024 2:48 PM EDT documented in this encounter Results * XR CHEST 2V (11/25/2024 2:48 PM EDT) Anatomical Region Laterality Modality Other 11/25/2024 2:48 PM EDT Narrative 11/25/2024 2:51 PM EDT [address] [address] XRay Report Signed Patient: ELI ARDON MR#: [id number] : 2005 Acct:[id number] Age/Sex: 19 / F ADM Date: 11/25/24 Loc: PST Attending Dr: Rogelio Rm D.O. Ordering Physician: Rogelio Rm D.O. Date of Service: 11/25/24 Procedure(s): XR chest 2V Accession Number(s): [id number] cc: Rogelio Rm D.O.; Physician,Non-Staff Wilberto The [address] [address] Patient Name: ELI ARDON MRN: [facility]:[id number] date: 2005 Sex: F Assigned Patient Location: [facility] Current Patient Location: [facility] Accession/Order Number: [id number] Exam Date: 11/25/2024 14:48 Report Date: 11/25/2024 14:48 At the request of: ROGELIO RM DO Procedure: XR chest 2V Chest 2 views CLINICAL HISTORY: Pre Op COMPARISON: None FINDINGS: Heart normal in size. Lungs are clear. No free air. XR/XR chest 2V IMPRESSION: NO ACUTE CARDIOPULMONARY ABNORMALITY. Impression dictated by: Francisco J Flanagan Jr., D.O. 11/25/2024 2:48 PM Dictation Location: [place] [address] Electronically authenticated by: [id number] Y Date: 11/25/2024 14:48 Dictated By: Francisco J Flanagan M.D. Signed By: 11/25/24 1451 DD/ 1448 TD/TT: Community Health Navigator: Procedure Note Radiology, Radiologist, - 11/25/[address] [address] XRay Report Signed Patient: YVES ARDONR#: [id number] : 2005Acct:[id number] Age/Sex: 19 / FADM Date: 11/25/24 Loc: PST Attending Dr: Rogelio Rm D.O. Ordering Physician: Rogelio Rm D.O. Date of Service: 11/25/24 Procedure(s): XR chest 2V Accession Number(s): [id number] cc: Rogelio Rm D.O.; Physician,Non-Staff Wilberto [place] [address] Patient Name: ELI ARDON MRN: [facility]:[id number] date: 2005 Sex: F Assigned Patient Location: [facility] Current Patient Location: [facility] Accession/Order Number: [id number] Exam Date: 11/25/2024 14:48 Report Date: 11/25/2024 14:48 At the request of: ROGELIO RM DO Procedure: XR chest 2V Chest 2 views CLINICAL HISTORY: Pre Op COMPARISON: None FINDINGS: Heart normal in size. Lungs are clear. No free air. XR/XR chest 2V IMPRESSION: NO ACUTE CARDIOPULMONARY ABNORMALITY. Impression dictated by: Francisco J Flanagan Jr., D.O. 11/25/2024 2:48 PM Dictation Location: [place] [address] Electronically authenticated by: [id number] Y Date: 4:48 Dictated By: Francisco J Flanagan M.D. Signed By:11/25/24 1451 DD/ 1448 TD/TT: Community Health Navigator: us Rogelio Rm DO [facility] Final Result documented in this encounter Visit Diagnoses Not on filedocumented in this encounter
--- OUTSIDE RECORDS SUMMARY | 2024-12-04 06:06 | XMS_ITS | Clinical Summary ---
Author Organization [facility] Address [address] [place] [address] Care Team Providers Care Supervisor Aluminum Boat Assembly Name Role Phone Unavailable Primary Care Provider Unavailabl e Allergies No known active allergies Medications Vit-Fe Fumarate-FA ( VITAMIN PO) Take by mouth. Active Active Problems Patient Care Coordination No te Formatting of this note migh t be different from the original. No PCP. No additional problems on file Social History Tobacco Use Types Packs/Day Years Used Date Smoking Tobacco: Never Smokeless Tobacco: Never Tobacco Cessation:Counseling Given: Not Answered Alcohol Use Standard Drinks/Week Comments Never 0 (1 standard drink = 0.6 oz pur e alcohol) [place] Depression Scale Answer Date Recorded [place] Depression Score 0 11/29/2022 Thought Of Harming [...] VACCINE ( season) 2024 INFLUENZA VACCINE (#1) 2025 9, 04/30/2006, 05/16/2005 TETANUS 10/08/2032 10/08/2022, 11/25, [...] Procedure Name Priority Date/Time Associated Diagnosis Comments CHLAMYDIA/GONOCOCCU S, KRZYSZTOF Today 11/07/2022 1:15 AM EDT from Last 3 Months or Most Recently Relevant to Health Maintenance Results * CHLAMYDIA/GONOCOCCUS, KRZYSZTOF (11/07/2022 1:15 AM EDT) CHLAMYDIA TRACHOMATIS NOT DETECTED NOT DETECTED [address] NEISSERIA GONORRHOEAE NOT DETECTED NOT DETECTED [address] Vaginal Pool SPECIMEN FROM VAGINA / Unknown 11/07/2022 1:15 AM EDT 11/07/2022 2:13 AM EDT Meagan Jones MD MICROBIOLOGY - GENERAL ORDERA BLES Final Result [facility] [address] [facility] [address] [place] [address] from Last 3 Months or Most Recently Relevant to Health Maintenance Insurance [employer] [employer] [employer] Advance Directives For more information, please contact: [phone] (7:30 AM - 6PM [facility], Saturday-Saturday) * Full Code (Latest Code Status on File) Date Activated Date Inactivated Comments 11/29/2022 2:25 PM
--- OUTSIDE RECORDS SUMMARY | 2024-12-04 06:06 | XMS_ITS | Encounter Summary ---
Author Organization [facility] Address [address] [place] [address] Care Team Providers Care Plant Guide Name Role Phone Unavailable Primary Care Provider Unavailabl e Encounter Details Date Type Department Care Team (Late st Contact Info) Description 11/22/2023 Clinisync Result Encounter [facility] External Department Unsolicited Rogelio Rm DO [address] [facility] [address], [place] [id number] Social History Tobacco Use Types Packs/Day Years [...] EDT Office Visit [facility] [address] [facility] [address] Jocelyne Odell PA [address] [place] [address] documented as of this encounter Procedures Procedure [...] Signs/Symptoms:PELVIC PAIN. COMPARISON: No prior ACCESSION NUMBER(S): [id number] ORDERING CLINICIAN: ROGELIO RM TECHNIQUE: Multiple multiplanar [...] Josie Calix 11/23/2023 8:12 AM Dictation workstation: [id number] Procedure Note Radiology, Radiologist, MD - 11/23/2023 Interpreted By: Josie Calix, STUDY: US PELVIS; 11/22/2023 12:32 pm INDICATION: Signs/Symptoms:PELVIC PAIN. COMPARISON: No prior ACCESSION NUMBER(S): [id number] ORDERING CLINICIAN: ROGELIO RM TECHNIQUE: Multiple multiplanar [...] Josie Calix 11/23/2023 8:12 AM Dictation workstation: [id number] Rogelio Rm DO [facility] Final Result documented in this encounter Visit Diagnoses Not on filedocumented in this encounter
--- OUTSIDE RECORDS SUMMARY | 2024-12-04 06:06 | XMS_ITS | Encounter Summary ---
Author Organization [facility] Address [address] [place] [address] Phone Care Team Providers Care Forming Press Operator Name Role Phone Generic Provider, No Assigned Pcp Primary Car e Provider Unavailable Encounter Details Date Type Department Care Team (Latest Contact Info) Description 11/20/2023 Transcribe Orders [facility] [address] [place] [address] Ross Rm, DO [address] [facility] [address], [place] [address] Pelvic and perineal pain (Primary Dx) Social [...] Primary documented in this encounter Care Teams Forming Press Operator Relationship Specialty Start Date End Date Generic Provider, No [place] [address] PCP - General Retail Marketing Executive 10/18/23 documented as of this encounter
--- OUTSIDE RECORDS SUMMARY | 2024-12-04 06:07 | XMS_ITS | CCD ---
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 % [facility] MCH (RBC) [Entitic mass] 27.6 pg 26.0 - 35.0 PG [facility] MCHC (RBC) [Mass/Vol] 32.6 g/dL [facility] MCV (RBC) [Entitic vol] 84.8 fL [facility] Monocytes (Bld) [#/Vol] 0.7 10*3/uL 0.0 - 0.7 10*3/uL [facility] Monocytes/100 WBC (Bld) 7.7 % 0.0 - 10.0 % [facility] Neutrophils (Bld) [#/Vol] 5.5 10*3/uL 1.4 - 6.5 10*3/uL [facility] Neutrophils/100 WBC (Bld) 57.2 % 37.0 - 75.0 % [facility] Platelet mean volume (Bld) [Entitic vol] 7.5 fL [facility] Platelets (Bld) [#/Vol] 298 10*3/uL 130 - 400 10*3/uL [facility] RBC (Bld) [#/Vol] 4.81 10*6/uL 4.0 - 5.4 10*6/uL [facility] WBC (Bld) [#/Vol] 9.6 10*3/uL 3.6 - 11.0 10*3/uL [facility] CHEM 7 FASTINGon 08-28-2024 Chloride [Moles/Vol] 101 mmol/L Normal 98-107 [facility] Comment on above: Result Comment: Marybel hunt note: Triglyceride levels of 600mg/dL or higher may positively bias chloride results by approximately 2.1 mmol Performed By: #### L IVR, ACBC, LIPA2, SHCGT, CHEM7F #### [place] [address] CO2 [Moles/Vol] 29 mmol/L Normal 22-30 [facility] Comment on above: Performed By: #### L IVR, ACBC, LIPA2, SHCGT, CHEM7F #### [place] [address] Creatinine [Mass/Vol] 0.58 mg/dL Low 0.70-1.20 [facility] Comment on above: Performed By: #### L IVR, ACBC, LIPA2, SHCGT, CHEM7F #### Testing performed at [address] [address] EST. GFR, 172 ml/min/1.73sq.m [facility] Comment on above: Performed By: #### L IVR, ACBC, LIPA2, SHCGT, CHEM7F #### Testing performed at [address] [address] EST. GFR,Non 142 ml/min/1.73sq.m [facility] Comment on above: Performed By: #### L IVR, ACBC, LIPA2, SHCGT, CHEM7F #### Testing performed at [address] [address] GFR Information Average GFR for 18-2 9 years old = 116. [facility] Comment on above: Result Comment: Geospatial Intelligence Analyst zoraida Kidney disease, GFR = <60. Kidney failure, GFR = <15. The GFR estimate is not adjusted for extreme body surface area or acute process, nor has it been validated for women or ethnic groups other than and . Performed By: #### L IVR, ACBC, LIPA2, SHCGT, CHEM7F #### Testing performed at [address] [address] Glucose [Mass/Vol] 91 mg/dL Normal 70-100 [facility] Comment on above: Result Comment: NORMAL <100 mg/dL PREDIABETES 101-126 mg/dL DIABETES 126 mg/dL or higher Performed By: #### L IVR, ACBC, LIPA2, SHCGT, CHEM7F #### Testing performed at [address] [address] Potassium [Moles/Vol] 3.8 mmol/L Normal 3.5-5.1 [facility] Comment on above: Performed By: #### L IVR, ACBC, LIPA2, SHCGT, CHEM7F #### Testing performed at [address] [address] Sodium [Moles/Vol] 143 mmol/L Normal 137-145 [facility] Comment on above: Performed By: #### L IVR, ACBC, LIPA2, SHCGT, CHEM7F #### Testing performed at [address] [address] Urea nitrogen [Mass/Vol] 18 mg/dL Normal 7-20 [facility] Comment on above: Performed By: #### L IVR, ACBC, LIPA2, SHCGT, CHEM7F #### Testing performed at [address] [address] CHEM 7 (LYTES,BUN,CREA,GLUC) on 08-28-2024 Chloride [Moles/Vol] 101 mmol/L [facility] Comment on above: Please note: Triglyc eride levels of 600mg/dL or higher may positively bias chloride results by approximately 2.1 mmol CO2 [Moles/Vol] 29 mmol/L [facility] Creatinine [Mass/Vol] 0.58 mg/dL Low [facility] GFR COMMENT Average GFR for 18-2 9 years old = 116. [facility] Comment on above: Chronic Kidney disea se, GFR = <60. Kidney failure, GFR = <15. The GFR estimate is not adjusted for extreme body surface area or acute process, nor has it been validated for women or ethnic groups other than and . GFR/1.73 sq M.predicted among blacks MDRD (S/P/Bld) [Vol rate/Area] 172 mL/min/{1.73_m2} ml/min/1.73s q.m [facility] GFR/1.73 sq M.predicted among non-blacks MDRD (S/P/Bld) [Vol rate/Area] 142 mL/min/{1.73_m2} ml/min/1.73s q.m [facility] Glucose post fast [Mass/Vol] 91 mg/dL [facility] Comment on above: NORMAL <100 mg/dL PREDIABETES 101-126 mg/dL DIABETES 126 mg/dL or higher Interpretation and review of laboratory results Abnormal [facility] Potassium [Moles/Vol] 3.8 mmol/L [facility] Sodium [Moles/Vol] 143 mmol/L [facility] Urea nitrogen [Mass/Vol] 18 mg/dL [facility] HCG ( test) Qlon [facility] HEPATIC FUNCTION PANELon Albumin [Mass/Vol] 4.9 g/dL [facility] ALP [Catalytic activity/Vol] 52 U/L [facility] ALT [Catalytic activity/Vol] 16 U/L NINF [facility] AST [Catalytic activity/Vol] 28 U/L [facility] Bilirubin [Mass/Vol] 0.3 mg/dL [facility] Bilirubin.direct [Mass/Vol] 0 mg/dL [facility] Protein [Mass/Vol] 7.7 g/dL [facility] LIPASEon 08-28-2024 Lipase [Catalytic activity/Vol] 37 U/L 23 - 300 U/L [facility] LIPASE,SERUMon 08-28-2024 LIPASE,SERUM 37 U/L Normal 23-300 [facility] Comment on above: Performed By: #### L IVR, ACBC, LIPA2, SHCGT, CHEM7F #### Testing performed at [facility] [address] [place] [address] LIVER PANELon 08-28-2024 Albumin [Mass/Vol] 4.9 g/dL Normal 3.5-5.0 [facility] Comment on above: Performed By: #### L IVR, ACBC, LIPA2, SHCGT, CHEM7F #### Testing performed at [address] [address] ALP [Catalytic activity/Vol] 52 U/L Normal 38-126 [facility] Comment on above: Performed By: #### L IVR, ACBC, LIPA2, SHCGT, CHEM7F #### Testing performed at [address] [address] ALT [Catalytic activity/Vol] 16 U/L Normal <35 [facility] Comment on above: Performed By: #### L IVR, ACBC, LIPA2, SHCGT, CHEM7F #### Testing performed at [address] [address] AST [Catalytic activity/Vol] 28 U/L Normal 14-36 [facility] Comment on above: Performed By: #### L IVR, ACBC, LIPA2, SHCGT, CHEM7F #### Testing performed at [address] [address] Bilirubin [Mass/Vol] 0.3 mg/dL Normal 0.2-1.3 [facility] Comment on above: Performed By: #### L IVR, ACBC, LIPA2, SHCGT, CHEM7F #### Testing performed at [address] [address] Bilirubin.indirect [Mass/Vol] 0.0 mg/dL Normal 0.0-0.4 [facility] Comment on above: Performed By: #### L IVR, ACBC, LIPA2, SHCGT, CHEM7F #### Testing performed at [address] [address] Protein [Mass/Vol] 7.7 g/dL Normal 6.3-8.2 [facility] Comment on above: Performed By: #### L IVR, ACBC, LIPA2, SHCGT, CHEM7F #### Testing performed at [address] [address] No Panel Informationon 08-28 [facility] SERUM HCG QUALon 08-28-2024 SERUM BETA HCG,QUAL Negative Normal NEGATIVE [facility] Comment on above: Performed By: #### L IVR, ACBC, LIPA2, SHCGT, CHEM7F #### Testing performed at [address] [address] URINALYSIS, MACROon 08-29-19 25 Bilirubin Ql (U) Negative NEGATIVE [facility] Clarity (U) CLEAR CLEAR [facility] Color (U) YELLOW YELLOW [facility] Glucose Test strip (U) [Mass/Vol] Negative NEGATIVE mg/dl [facility] Hemoglobin Ql (U) LARGE Abnormal NEGATIVE [facility] Interpretation and review of laboratory results Abnormal [facility] Ketones (U) [Mass/Vol] Negative NEGATIVE mg/dl [facility] Leukocyte esterase Test strip Ql (U) Negative NEGATIVE [facility] Nitrite Ql (U) Negative NEGATIVE [facility] pH (U) 7.5 [pH] High 5.0 - 7.0 [facility] Protein Ql (U) 100 mg/dl Abnormal NEGATIVE [facility] Specific gravity (U) [Rel density] 1.02 1.010 - 1.025 [facility] Urobilinogen (U) [Mass/Vol] 0.2 mg/dL [facility] URINE CULTUREon 08-28-2024 Bacteria identified Cx Nom (U) SPECIMEN DESCRIPTION URINE CLEAN CATCH CULTURE NO PATHOGENS ISOLATED * Result Note: Testing performed at [place] [address] * REPORT STATUS 08/31/2024 * Result Note: FINAL * Normal [facility] Comment on above: Performed By: #### A URNC #### Testing performed at [address] [address] Testing performed at [address] [address] URINE MACROSCOPICon 08-29-19 25 Bilirubin Ql (U) Negative Normal NEGATIVE [facility] Comment on above: Performed By: #### U MAC, UMIC #### Testing performed at [address] [address] Clarity (U) CLEAR Normal CLEAR [facility] Comment on above: Performed By: #### U MAC, UMIC #### Testing performed at [address] [address] Color (U) YELLOW Normal YELLOW [facility] Comment on above: Performed By: #### U MAC, UMIC #### Testing performed at [address] [address] Glucose Ql (U) Negative Normal NEGATIVE [facility] Comment on above: Performed By: #### U MAC, UMIC #### Testing performed at [address] [address] pH (U) 7.5 [pH] High 5.0-7.0 [facility] Comment on above: Performed By: #### U MAC, UMIC #### Testing performed at [address] [address] Protein (U) [Mass/Vol] 100 mg/dL Abnormal NEGATIVE [facility] Comment on above: Performed By: #### U MAC, UMIC #### Testing performed at [address] [address] URINE HEMOGLOBIN LARGE Abnormal NEGATIVE [facility] Comment on above: Performed By: #### U MAC, UMIC #### Testing performed at [address] [address] URINE KETONE Negative Normal NEGATIVE [facility] Comment on above: Performed By: #### U MAC, UMIC #### Testing performed at [address] [address] URINE LEUKOTEST Negative Normal NEGATIVE [facility] Comment on above: Performed By: #### U MAC, UMIC #### Testing performed at [address] [address] URINE NITRATES Negative Normal NEGATIVE [facility] Comment on above: Performed By: #### U MAC, UMIC #### Testing performed at [address] [address] URINE SPEC GRAVITY 1.020 Normal 1.010-1.025 [facility] Comment on above: Performed By: #### U MAC, UMIC #### Testing performed at [address] [address] Urobilinogen Qn (U) 0.2 {Donna'U}/dL Normal 0.2-1.0 [facility] Comment on above: Performed By: #### U MAC, UMIC #### Testing performed at [address] [address] URINE MICROSCOPICon 08-29-19 25 Bacteria LM.HPF (Urine sed) [#/Area] Negative NEGATIVE [facility] Casts LM.LPF (Urine sed) [#/Area] NONE NONE /LPF [facility] Crystals LM Nom (Urine sed) NONE NONE [facility] Epithelial cells LM Ql (Urine sed) 1 TO 5 /HPF [facility] Mucus Ql (Urine sed) Negative NEGATIVE [facility] RBC LM.HPF (Urine sed) [#/Area] 5 TO 10 NEGATIVE /HPF [facility] Urine sediment comments LM Gerber (Urine sed) REFLEX CULTURE PER ESTABLISHED CRITERIA. [facility] WBC LM.HPF (Urine sed) [#/Area] Negative NEGATIVE /HPF [facility] Bacteria LM.HPF (Urine sed) [#/Area] Negative Normal NEGATIVE [facility] Comment on above: Performed By: #### U MAC, UMIC #### Testing performed at [address] [address] CASTS NONE Normal [facility] Comment on above: Performed By: #### U MAC, UMIC #### Testing performed at [address] [place] [address] CRYSTAL NONE Normal [facility] Comment on above: Performed By: #### U MAC, UMIC #### Testing performed at [address] [address] Epithelial cells LM Ql (Urine sed) 1 TO 5 Normal [facility] Comment on above: Performed By: #### U MAC, UMIC #### Testing performed at [address] [address] Mucus Ql (Urine sed) Negative Normal NEGATIVE [facility] Comment on above: Performed By: #### U MAC, UMIC #### Testing performed at [address] [address] URINE COMMENT REFLEX CULTURE PER ESTABLISHED CRITERIA. [facility] Comment on above: Performed By: #### U MAC, UMIC #### Testing performed at [address] [address] URINE RBC'S 5 TO 10 Normal NEGATIVE [facility] Comment on above: Performed By: #### U MAC, UMIC #### Testing performed at [address] [place] [address] URINE WBC'S Negative Normal NEGATIVE [facility] Comment on above: Performed By: #### U LAZARO RHODES #### Testing performed at [address] [address] US PELVIC W TRANSVAGINALon 0 08-28-2024 US PELVIC W TRANSVAGINAL EXAM: US PELVIC W TRANSVAGINAL HISTORY: pelvic [...] No significant free fluid within the pelvis. IMPRESSION: 1. A complex 4.86 cm partially [...] Normal left ovary. 3. IUD in place. Normal [facility] US Pelvis transvaginalon IMPRESSION: 1. A complex 4.86 cm partially [...] Normal left ovary. 3. IUD in place. RADIOLOGY EXAM: US PELVIC W TRANSVAGINAL HISTORY: pelvic [...] No significant free fluid within the pelvis. RADIOLOGY Demarco Hernandez MD - 08/28/2024 EXAM: US [...] No significant free fluid within the pelvis. IMPRESSION [...] Normal left ovary. 3. IUD in place. [facility] Radiology Study observation (narrative) [facility] US Pelvis transvaginalOrdere d By: Demarco Hernandez on 08-28-2024 [facility] Work Phone: US PELVISon 11-22-2023 US PELVIS Interpreted By: Josie Edwards, STUDY: US PELVIS; 11/22/2023 12:32 pm INDICATION: Signs/Symptoms:PELVIC PAIN. COMPARISON: No prior ACCESSION NUMBER(S): [id number] ORDERING CLINICIAN: ROSS RM TECHNIQUE: Multiple multiplanar static grace scale, color and spectral waveform sonographic images [...] Josie Calix 11/23/2023 8:12 AM Dictation workstation: [id number] Normal [facility] POCT UA (nonautomated w/o mi croscopy) manually resultedOrdered By: Parrish Gray on 10-18-2023 Appearance (U) Clear Clear [facility] Glucose Test strip (U) [Mass/Vol] Negative NEGATIVE mg/dl [facility] Hemoglobin Ql (U) LARGE (3+) Abnormal NEGATIVE [facility] Interpretation and review of laboratory results Abnormal [facility] Leukocyte esterase Test strip Ql (U) Negative NEGATIVE [facility] Nitrite Ql (U) Negative NEGATIVE [facility] pH (U) 5.5 [pH] No Reference Range Established [facility] POC Bilirubin, Urine SMALL (1+) Abnormal NEGATIVE [facility] POC Color, Urine Yellow Straw, Yellow, Light-Yellow [facility] POC Ketones, Urine 80 (3+) Abnormal NEGATIVE mg/dl [facility] POC Protein, Urine 100 (2+) Abnormal NEGATIVE, 30 (1+) mg/dl [facility] POC Specific [place], Urine 1.025 1.005 - 1.035 [facility] POC Urobilinogen, Urine 0.2 0.2, 1.0 EU/DL [facility] Group A Streptococcus, PCRon 06-15-2023 S. pyogenes DNA KRZYSZTOF+probe Ql (Throat) Detected Abnormal Not Detected [facility] Comment on above: This assay is an FDA -cleared, real-time PCR test for the qualitative detection of Group A Streptococcus bacterial DNA from throat swabs that have not undergone a nucleic acid extraction. Negative results do not require confirmation by culture. Influenza virus A and B and SARS-CoV-2 (COVID-19) identified KRZYSZTOF+probe Nom (Resp)on 06-15-2023 FLUAV RNA KRZYSZTOF+probe Ql (Resp) Not detected Not Detected [facility] FLUBV RNA KRZYSZTOF+probe Ql (Resp) Not detected Not Detected [facility] Interpretation and review of laboratory results Normal [facility] SARS-CoV-2 (COVID-19) RNA KRZYSZTOF+probe Ql (Resp) Not detected Not Detected [facility] This assay has recei isaac FDA Emergency Use Authorization (EUA) and is only authorized for the duration of time that circumstances exist to justify the authorization of the emergency use of in vitro diagnostic tests for the detection of SARS-CoV-2 virus and/or diagnosis of COVID-19 infection under section 564(b)(1) of the Act, 21 U.S.C. 360bbb-3(b)(1). Testing for SARS-CoV-2 is only recommended for patients who meet current clinical and/or epidemiological criteria as defined by federal, state, or local public health directives. This assay is an in vitro diagnostic nucleic acid amplification test for the qualitative detection of SARS-CoV-2, Influenza A, and Influenza B from nasopharyngeal specimens and has been validated for use at [facility]. Negative results do not preclude COVID-19 infections or Influenza A/B infections, and should not be used as the sole basis for diagnosis, treatment, or other management decisions. If Influenza A/B and RSV PCR results are negative, testing for Parainfluenza virus, Adenovirus and Metapneumovirus is routinely performed for [facility] pediatric oncology and intensive care inpatients, and is available on other patients by placing an add-on request. [facility] S. pyogenes DNA KRZYSZTOF+probe Ql (Throat)on 06-15-2023 Interpretation and review of laboratory results Abnormal [facility] Clinical Event Note-ED Post Discharge Result Follow Up: Atteon 02-14-2023 Clinical Event Note-ED Post Discharge Result Follow Up: Atte Clinical Event: Clinical Event Note: TopicED Post Discharge Result Follow Up: Attempt #2: Complete: Throat: GAS Details Number Called: Primary [id number] Spoke With: Patient Patient contacted in regards to a positive pharyngitis (strep throat) culture. Spoke with patient about the need for therapy. The culture was discussed and education on new treatment plan was given. Signs/symptoms of strep throat were reviewed which included sore throat, fever, hoarseness, and cough. Advised the patient to stay in isolation until they have completed 12 hours of antibiotics or no longer have a fever. Made aware to follow up with PCP. Patient made aware that if they experience any signs/symptoms to go to ED for further evaluation. Patient verbalized understanding and had no further questions or concerns. New Treatment Information Drug: Amoxicillin 500mg Sig: Take 1 tablet by mouth twice a day for 10 days Qty: 20 Days: 10 [facility]: [id number] If there are any other questions for the ED Post-Discharge Culture Follow Up Team, please contact [phone]. . Jose A Mcdaniel PharmD PGY1 Senior [employer]ist [facility] Electronic Signatures: Jose A Mcdaniel ([facility]) (Signed 14-Feb-2023 13:53) Authored: Clinical Event Note Last Updated: 14-Feb-2023 13:53 by Jose A Mcdaniel ([facility]) [facility] Clinical Event Note-ED Post Discharge Result Follow Up: Atteon 02-13-2023 Clinical Event Note-ED Post Discharge Result Follow Up: Atte Clinical Event: Clinical Event Note: TopicED Post Discharge Result Follow Up: Attempt #1; Pending: Throat: GAS Details Number Contacted: Primary, LVM: Emergency, unable to LVM Attempted to contact patient regarding a positive Group A Strep throat culture that was taken during their recent emergency room visit. This is a non-life threatening result, but the patient is not receiving proper treatment at this time. Will try to contact the patient again in 24 hours. Recommend Amoxicillin 500mg twice a day for 10 days If there are any other questions for the ED Post-Discharge Culture Follow Up Team, please contact [phone]. . Jose A Mcdaniel, PharmD PGY1 Senior Tax Specialist [facility] Electronic Signatures: Mojgan Larson ([facility]) (Signed 14-Feb-2023 10:53) Co-Signer: Clinical Event Note Jose A Mcdaniel ([facility]) (Signed 13-Feb-2023 10:49) Authored: Clinical Event Note Last Updated: 14-Feb-2023 10:53 by Mojgan Larson ([facility]) Normal [facility] GROUP A STREP,PCRon 02-13-20 23 GROUP A STREP,PCR Detected Abnormal Not Detected [facility] Comment on above: Order Comment: (+) G APCR CALLED TO JOSE A MCDANIEL, 02/13/2023 10:34 Result Comment: This test was performed utilizing an FDA-cleared rapid nucleic acid amplification by PCR to qualitatively detect Group A Streptococci from throat swab specimens without the need for culture confirmation of negative results. (+) GAPCR CALLED TO JOSE A MCDANIEL, 02/13/2023 10:34 Performed By: #### G APC1 #### [place] [id number] Lab Specimen Source Throat Normal [facility] Comment on above: Order Comment: (+) G APCR CALLED TO JOSE A MCDANIEL, 02/13/2023 10:34 Performed By: #### G APC1 #### [address] [address] Provider Note - ED v3on 01-25 Provider Note - ED v3 Provider Note: Results/Vital Signs: Pediatric Clinical Scoring (LEIDA) is no recent LEIDA charted on this account Chart Review: ED NOTES ED NOTES: Limitations to History: None HPI: 17-year-old female presents with concern for sore throat and bilateral ear pain. States this began 3 days ago. States that she has upper congestion. Denies any cough, nausea, vomiting, fever, chills. Boyfriend also currently sick with a sore throat. Additional History Obtained from: Significant other at the bedside. -- ------ Physical Exam: VS: As documented in the triage note and EMR flowsheet from this visit were reviewed. Appearance: Alert. cooperative, in no acute distress. Skin: Intact, dry skin, no lesions, rash, petechiae or purpura. Eyes: PERRLA, EOMs intact, Conjunctiva pink with no redness or exudates. HENT: Normocephalic, atraumatic. Nares patent. No intraoral lesions. No posterior pharyngeal edema, erythema, exudate. Neck: Supple, without meningismus. Trachea at midline. No lymphadenopathy. Pulmonary: Clear bilaterally with good chest wall excursion. No rales, rhonchi or wheezing. No accessory muscle use or stridor. Cardiac: Regular rate and rhythm, no rubs, murmurs, or gallops. Psychiatric: Appropriate mood and affect. HISTORY OF PRESENTING ILLNESS CONCHA is a 17 year old Female and was seen by me at 12-Feb-2023 15:26 for a chief complaint of sore throat (pt comes in for 4-5 days of bilateral ear pain with the left side being worse than the right. Yesterday she woke up and had a sore throat, headache, congestion, nonproductive cough with bilateral eye discharge.)(1). Triage Information: Most recent Vital Sign Value Date Temp (F): 97.5 02-12-2023 15:32 Temp (C): 36.3 02-12-2023 15:32 Heart Rate (beats/min): 92 02-12-2023 15:32 Respirations (breaths/min): 18 02-12-2023 15:32 SpO2 (%): 98 02-12-2023 15:32 BP Systolic (mm Hg): 124 02-12-2023 15:32 BP Diastolic (mm Hg): 82 02-12-2023 15:32 PAST MEDICAL HISTORY ALLERGIES/INTOLERANCES: No Known Allergies HEALTH HISTORY: No documented data. OUTPATIENT MEDICATIONS: Home Medications Review Status for Reconciliation: Complete Med Status: Patient Currently Takes Medications Drug Name: 1 oral capsule Instructions: 1 cap(s) orally once a day Drug Name: amoxicillin-clavulanate 875 mg-125 mg oral tablet Instructions: 1 tab(s) orally every 12 hours SIGNIFICANT EVENTS: Past Medical History Description:tonsillectomy Description:adenoidectomy CRITICAL CARE VITAL SIGNS: *Vital Signs have not been recorded in the last 5 hours MDM MDM/ED COURSE: Medical Decision Making: Patient appears well and nontoxic. Patient will be tested for streptococcal pharyngitis. Does not wish to wait on results. Will be contacted with results and possible antibiotic treatment. Stable at time of discharge. Differential Diagnoses Considered: Streptococcal pharyngitis, viral pharyngitis, otitis media. Escalation of Care: Appropriate for outpatient management and follow-up with primary care. Prescription Drug Consideration: Antibiotics considered. We will wait on rapid strep results. DISPOSITION Diagnosis/Annotation: ED Dx Name:Acute pharyngitis Code:J02.9 Disposition: discharged Type: home CONSULT CRITICAL CARE TIME Is this a critically ill patient: no Electronic Signatures: Clemente Garcia) (Signed 14-Feb-2023 12:52) Authored: ED Notes, HPI, PMH, PE, Results/Vital Signs, MDM/ED Course, Clinical Impression, Attestation, Chart Review, Scores Last Updated: 14-Feb-2023 12:52 by Clemente Garcia) References: 1. Data Referenced From Triage - ED 12-Feb-2023 15:32 Normal [facility] CBC, EDIF, PLATELETon 2022 Differential cell count method Nom (Bld) AUTO DIFF % [facility] Comment on above: MANUAL DIFF Erythrocyte distribution width (RBC) [Ratio] 15.1 % High 11.5 - 14.5 % [facility] Hematocrit (Bld) [Volume fraction] 26.1 % Low 36.0 - 48.0 % [facility] Hemoglobin (Bld) [Mass/Vol] 8.8 g/dL Low [facility] Immature granulocytes/100 WBC (Bld) 1 % 0.0 - 2.0 % [facility] Interpretation and review of laboratory results Abnormal [facility] Lymphocytes/100 WBC (Bld) 18 % Low 20.0 - 55.0 % [facility] MCH (RBC) [Entitic mass] 28.0 pg 26.0 - 35.0 PG [facility] MCHC (RBC) [Mass/Vol] 33.5 g/dL [facility] MCV (RBC) [Entitic vol] 83.5 fL [facility] Monocytes/100 WBC (Bld) 10 % 0.0 - 10.0 % [facility] Morphology Gerber (Bld) [Interp] 1+ [facility] Comment on above: ANISOCYTE 1+ POIKILOCYTE 1+ HYPOCHROMIA Neutrophils/100 WBC (Bld) 71 % 37.0 - 75.0 % [facility] Platelet mean volume (Bld) [Entitic vol] 8.8 fL [facility] Platelet morphology finding Nom (Bld) ADEQUATE [facility] Platelets (Bld) [#/Vol] 210 10*3/uL 130 - 400 10*3/uL [facility] RBC (Bld) [#/Vol] 3.13 10*6/uL Low 4.0 - 5.4 10*6/uL [facility] WBC (Bld) [#/Vol] 17.5 10*3/uL High 3.6 - 11.0 10*3/uL [facility] CBC, EDIF, PLATELETon 2022 ABSOLUTE BASOPHIL COUNT 0.1 10*3/uL 0.0 - 0.2 10*3/uL [facility] Basophils/100 WBC (Bld) 0.4 % 0.0 - 2.0 % [facility] Differential cell count method Nom (Bld) AUTO DIFF % [facility] Eosinophils (Bld) [#/Vol] 0.1 10*3/uL 0.0 - 0.7 10*3/uL [facility] Eosinophils/100 WBC (Bld) 0.9 % 0.0 - 11.0 % [facility] Erythrocyte distribution width (RBC) [Ratio] 15.2 % High 11.5 - 14.5 % [facility] Hematocrit (Bld) [Volume fraction] 34.3 % Low 36.0 - 48.0 % [facility] Hemoglobin (Bld) [Mass/Vol] 11.3 g/dL Low [facility] Interpretation and review of laboratory results Abnormal [facility] Lymphocytes (Bld) [#/Vol] 2.7 10*3/uL 1.2 - 3.4 10*3/uL [facility] Lymphocytes/100 WBC (Bld) 23.3 % 20.0 - 55.0 % [facility] MCH (RBC) [Entitic mass] 27.3 pg 26.0 - 35.0 PG [facility] MCHC (RBC) [Mass/Vol] 32.8 g/dL [facility] MCV (RBC) [Entitic vol] 83.2 fL [facility] Monocytes (Bld) [#/Vol] 1.1 10*3/uL High 0.0 - 0.7 10*3/uL [facility] Monocytes/100 WBC (Bld) 9.4 % 0.0 - 10.0 % [facility] Neutrophils (Bld) [#/Vol] 7.7 10*3/uL High 1.4 - 6.5 10*3/uL [facility] Neutrophils/100 WBC (Bld) 66.0 % 37.0 - 75.0 % [facility] Platelet mean volume (Bld) [Entitic vol] 8.3 fL [facility] Platelets (Bld) [#/Vol] 229 10*3/uL 130 - 400 10*3/uL [facility] RBC (Bld) [#/Vol] 4.13 10*6/uL 4.0 - 5.4 10*6/uL [facility] WBC (Bld) [#/Vol] 11.7 10*3/uL High 3.6 - 11.0 10*3/uL [facility] TYPE AND SCREEN - POSSIBLE T RANSFUSIONon 11-28-2022 ABO and Rh group Nom (Bld ) Positive [facility] ARM BAND NUMBER [id number] [facility] Blood group antibody screen Ql Negative [facility] EXPIRATION DATE 12/01/2022,2359 [facility] Provider Note - ED v3on 05-3 Provider Note - ED v3 Provider Note: Chart Review: HISTORY OF PRESENTING ILLNESS CONCHA is a 16 year old Female and was seen by me at 24-Oct-2022 13:45. Triage Information: Most recent Vital Sign Value Date PAST MEDICAL HISTORY ALLERGIES/INTOLERANCES: No Known Allergies HEALTH HISTORY: No documented data. OUTPATIENT MEDICATIONS: Home Medications Review Status for Reconciliation: Complete Med Status: No Current Medications SIGNIFICANT EVENTS: No documented data. CRITICAL CARE VITAL SIGNS: T PRBP SpO2O2(LPM) %FiO2 Method 24-Oct-2022 13:45:[id number] MDM MDM/ED COURSE: This note was generated with voice recognition software and may contain errors including spelling, grammar, syntax, and misrecognization of what was dictated Chief Complaint Poison annette History of Present Illness Patient presents with a 9-day history of poison annette rash over her abdomen arms neck and face. Time has made her symptoms worse. She has used some [id number]-tkqakki products without much relief of her symptoms. She is 35 weeks Review of Systems 10 systems reviewed negative with exception of history of present illness listed above Physical Examination General: Alert and oriented, No acute distress. Eye: Pupils are equal, round and reactive to light. HENT: Normocephalic Neck: Supple, Non-tender, No lymphadenopathy. Respiratory: Lungs are clear to auscultation, Respirations are non-labored, Breath sounds are equal, Symmetrical chest wall expansion. Cardiovascular: Normal rate, Regular rhythm. Gastrointestinal: Soft, non-tender, non-distended Musculoskeletal: Normal range of motion, normal strength, no tenderness, no swelling. Integumentary: [place], warm, dry, with a poison annette dermatitis noted to her abdomen arms neck and face Neurologic: Alert, Oriented, Normal sensory, Normal motor function. Cognition and Speech: Oriented, Speech clear and coherent. Psychiatric: Cooperative, Appropriate mood & affect. Impression and Plan Course: Worsening Plan: Patient will be discharged home with instructions to continue using hceq-hog-yseljot products for symptom management. To follow-up with her [employer]. She agrees with the plan of care, questions were encouraged and answered. Patient Instructions: Poison annette dermatitis DISPOSITION Diagnosis/Annotation: ED Dx Name:Poison annette dermatitis Code:L23.7 Disposition: discharged Type: home CONSULT CRITICAL CARE TIME Is this a critically ill patient: no Electronic Signatures: Pablo Hinkle ([facility]) (Signed 24-Oct-2022 14:07) Authored: HPI, PMH, PE, Results/Vital Signs, MDM/ED Course, Clinical Impression, Attestation, Chart Review, Scores Last Updated: 24-Oct-2022 14:07 by Pablo Hinkle ([facility] [facility]) [facility] Cult,Urineon 05-24-2022 Cult,Urine Specimen Description .URINE Culture NO SIGNIFICANT GROWTH Report Status FINAL 05/24/2022 [facility] Comment on above: Performed By: #### U RC #### [facility] [address] [place], [place] [id number] Salt Maker: Temo Peters MD [facility] [address] [place] [address] [place] [address] Salt Maker: Demarco Aparicio MD Group A Strep DNAon 05-24-20 Group A Strep DNA Specimen Description .THROAT SWAB Direct Exam Negative: Specimen negative for Streptococcus pyogenes by DNA amplification. Report Status FINAL 05/24/2022 [facility] Comment on above: Performed By: #### F LUABA #### [facility] [address] [place] [address] [place] [address] Salt Maker: Demarco Aparicio MD CBC with Auto Differentialon 05-23-2022 Absolute Eos # [facility] Absolute Immature Granulocyte [facility] Absolute Lymph # 0.72 Low [facility] Absolute [place] # 0.60 [facility] Basophils Absolute [facility] Basophils/100 WBC (Bld) 0 % 0 - 2 % [facility] Eosinophils/100 WBC (Bld) 0 % Low 1 - 4 % [facility] Hematocrit (Bld) [Volume fraction] 37.0 % 36.3 - 47.1 % [facility] Hemoglobin (Bld) [Mass/Vol] 11.8 g/dL Low 11.9 - 15.1 g/dL [facility] Immature granulocytes/100 WBC (Bld) 0 % 0 [facility] Interpretation and review of laboratory results Abnormal [facility] Lymphocytes/100 WBC (Bld) 13 % Low 25 - 45 % [facility] MCH (RBC) [Entitic mass] 26.9 pg 25.0 - 35.0 pg [facility] MCHC (RBC) [Mass/Vol] 31.9 g/dL 28.4 - 34.8 g/dL [facility] MCV (RBC) [Entitic vol] 84.3 fL 78.0 - 102.0 fL [facility] Monocytes/100 WBC (Bld) 11 % High 2 - 8 % [facility] NRBC Automated 0.0 0.0 per 100 WBC [facility] Platelet distribution width (Bld) [Ratio] 14.1 % 11.8 - 14.4 % [facility] Platelet mean volume (Bld) [Entitic vol] 9.4 fL 8.1 - 13.5 fL [facility] Platelets (Bld) [#/Vol] 237 10*3/uL [facility] RBC (Bld) [#/Vol] 4.39 10*6/uL 3.95 - 5.1 1 m/uL [facility] Segmented neutrophils/100 WBC (Bld) 76 % High 34 - 64 % [facility] Segs Absolute 4.14 [facility] WBC (Bld) [#/Vol] 5.5 10*3/uL [facility] CBC with Diffon 05-23-2022 Abs. Basophil <0.03 Normal 0.00-0.20 [facility] Comment on above: Performed By: #### F DAPHNIE #### [facility] [address] [place] [address] Salt Maker: Demarco Aparicio MD Abs. Eosinophil <0.03 Normal 0.00-0.44 [facility] Comment on above: Performed By: #### F DAPHNIE #### [facility] [address] [place] [address] [place], [place] [phone] Salt Maker: Demarco Aparicio MD Abs.Imm.Granulocyte <0.03 Normal 0.00-0.30 [facility] Comment on above: Performed By: #### F LUABA #### [address] [place], [place] [id number] Salt Maker: Demarco Aparicio MD Abs.Neutrophil (Seg) 4.14 k/uL Normal 1.80-8.00 [facility] Comment on above: Performed By: #### F LUABA #### [address] [place], [place] [id number] Salt Maker: Demarco Aparicio MD Basophils/100 WBC (Bld) 0 % Normal 0-2 [facility] Comment on above: Performed By: #### F LUABA #### [address] [place], [facility]83 Salt Maker: Demarco Aparicio MD Eosinophils/100 WBC (Bld) 0 % Low 1-4 [facility] Comment on above: Performed By: #### F LUABA #### [address] [place], [place] [id number] Salt Maker: Demarco Aparicio MD Erythrocyte distribution width (RBC) [Ratio] 14.1 % Normal 11.8-14.4 [facility] Comment on above: Performed By: #### F LUABA #### [address] [place], [place] [phone] Salt Maker: Demarco Aparicio MD Hematocrit (Bld) [Volume fraction] 37.0 % Normal 36.3-47.1 [facility] Comment on above: Performed By: #### F LUABA #### [address] [place], [place] [phone] Salt Maker: Demarco Aparicio MD Hemoglobin (Bld) [Mass/Vol] 11.8 g/dL Low 11.9-15.1 [facility] Comment on above: Performed By: #### F LUABA #### [address] [place], [place] [phone] Salt Maker: Demarco Aparicio MD Immature granulocytes/100 WBC (Bld) 0 % Normal 0 [facility] Comment on above: Performed By: #### F LUABA #### [address] [place], [facility]83 Salt Maker: Demarco Aparicio MD Lymphocytes (Bld) [#/Vol] 0.72 10*3/uL Low 1.20-5.20 [facility] Comment on above: Performed By: #### F LUABA #### [address] [place], [facility]83 Salt Maker: Demarco Aparicio MD Lymphocytes/100 WBC (Bld) 13 % Low 25-45 [facility] Comment on above: Performed By: #### F LUABA #### [address] [place], [facility]83 Salt Maker: Demarco Aparicio MD MCH (RBC) [Entitic mass] 26.9 pg Normal 25.0-35.0 [facility] Comment on above: Performed By: #### F LUABA #### [address] [place], [facility]83 Salt Maker: Demarco Aparicio MD MCHC (RBC) [Mass/Vol] 31.9 g/dL Normal 28.4-34.8 [facility] Comment on above: Performed By: #### F LUABA #### [address] [place] [address] Salt Maker: Demarco Aparicio MD MCV (RBC) [Entitic vol] 84.3 fL Normal 78.0-102.0 [facility] Comment on above: Performed By: #### F LUABA #### [address] [place], [place] [phone] Salt Maker: Demarco Aparicio MD Monocytes (Bld) [#/Vol] 0.60 10*3/uL Normal 0.10-1.40 [facility] Comment on above: Performed By: #### F LUABA #### [facility] [address] [place], [place] [phone] Salt Maker: Demarco Aparicio MD Monocytes/100 WBC (Bld) 11 % High 2-8 [facility] Comment on above: Performed By: #### F LUABA #### [facility] [address] [place], [place] [phone] Salt Maker: Demarco Aparicio MD Neutrophil (Seg) 76 % High 34-64 [facility] Comment on above: Performed By: #### F LUABA #### [address] [place], [facility]83 Salt Maker: Demarco Aparicio MD NRBC Automated 0.0 per 100 WBC Normal 0.0 [facility] Comment on above: Performed By: #### F LUABA #### [address] [place], [place] [phone] Salt Maker: Demarco Aparicio MD Platelet mean volume (Bld) [Entitic vol] 9.4 fL Normal 8.1-13.5 [facility] Comment on above: Performed By: #### F LUABA #### [address] [place], [place] [phone] Salt Maker: Demarco Aparicio MD Platelets (Bld) [#/Vol] 237 10*3/uL Normal 138-453 [facility] Comment on above: Performed By: #### F LUABA #### [facility] [address] [place], [place] [phone] Salt Maker: Demarco Aparicio MD RBC (Bld) [#/Vol] 4.39 10*6/uL Normal 3.95-5.11 [facility] Comment on above: Performed By: #### F DAPHNIE #### [facility] [address] [place] [address] Salt Maker: Demarco Aparicio MD WBC (Bld) [#/Vol] 5.5 10*3/uL Normal 4.5-13.5 [facility] Comment on above: Performed By: #### F DAPHNIE #### [facility] [address] [place] [address] Salt Maker: Demarco Aparicio MD [facility] Albumin [Mass/Vol] 4.3 g/dL 3.2 - 4.5 g/dL [facility] Albumin/Globulin [Mass ratio] 1.4 {ratio} 1.0 - 2.5 [facility] ALP (Bld) [Catalytic activity/Vol] 68 U/L 47 - 119 U/L [facility] ALT [Catalytic activity/Vol] 11 U/L 5 - 33 U/L [facility] Anion gap [Moles/Vol] 9 mmol/L 9 - 17 mmol/L [facility] AST [Catalytic activity/Vol] 16 U/L NINF - 32 U/L [facility] Bilirubin [Mass/Vol] 0.2 mg/dL Low 0.3 - 1 .2 mg/dL [facility] Calcium [Mass/Vol] 9.2 mg/dL 8.4 - 10. 2 mg/dL [facility] Chloride [Moles/Vol] 102 mmol/L 98 - 10 7 mmol/L [facility] CO2 [Moles/Vol] 23 mmol/L 20 - 31 mmol/L [facility] Creatinine [Mass/Vol] 0.39 mg/dL Low 0.50 - 0.90 mg/dL [facility] GFR/1.73 sq M.predicted MDRD (S/P/Bld) [Vol rate/Area] Can not be calculated - [facility] Comment on above: Pediatric calculator link: https://www.kidney.org/professionals/kdoqi/gfr_calculatorped Effective Feb 26, 2022 These results are not intended for use in patients <18 years of age. eGFR results are calculated without a race factor using the 2020 CKD-EPI equation. Careful clinical correlation is recommended, particularly when comparing to results calculated using previous equations. The CKD-EPI equation is less accurate in patients with extremes of muscle mass, extra-renal metabolism of creatine, excessive creatine ingestion, or following therapy that affects renal tubular secretion. Glucose [Mass/Vol] 93 mg/dL 60 - 100 mg/dL [facility] Interpretation and review of laboratory results Abnormal [facility] Potassium [Moles/Vol] 3.5 mmol/L Low 3.6 - 4.9 mmol/L [facility] Protein [Mass/Vol] 7.4 g/dL 6.0 - 8.0 g/dL [facility] Sodium [Moles/Vol] 134 mmol/L Low 135 - 144 mmol/L [facility] Urea nitrogen (BldV) [Mass/Vol] 5 mg/dL 5 - 18 mg/dL [facility] Urea nitrogen/Creatinine (Bld) [Mass ratio] 13 9 - 20 [facility] COVID-19, Rapidon 05-23-2022 SARS-CoV-2 (COVID-19) RNA KRZYSZTOF+probe Ql (Unsp spec) Not detected Not Detected [facility] Comment on above: Rapid NAAT: The specimen is NEGATIVE for SARS-CoV-2, the novel coronavirus associated with COVID-19. The ID NOW COVID-19 assay is designed to detect the virus that causes COVID-19 in patients with signs and symptoms of infection who are suspected of COVID-19. An individual without symptoms of COVID-19 and who is not shedding SARS-CoV-2 virus would expect to have a negative (not detected) result in this assay. Negative results should be treated as presumptive and, if inconsistent with clinical signs and symptoms or necessary for patient management, should be tested with an alternative molecular assay. Negative results do not preclude SARS-CoV-2 infection and should not be used as the sole basis for patient management decisions. Fact sheet for Healthcare Providers: https://www.fda.gov/media/682473/download Fact sheet for Patients: https://www.[facility].gov/media/431103/download Methodology: Isothermal Nucleic Acid Amplification Specimen Description .NASOPHARYNGEAL SWAB [facility]ON [facility] Comp Metabolic Profon 2021 Albumin [Mass/Vol] 4.3 g/dL Normal 3.2-4.5 [facility] Comment on above: Performed By: #### F LUABA #### [facility] [address] [place], [place] [phone] Salt Maker: Demarco Aparicio MD Albumin/Glob Ratio 1.4 Normal 1.0-2.5 [facility] Comment on above: Performed By: #### F LUABA #### [facility] [address] [place] [address] Salt Maker: Demarco Aparicio MD Alkaline Phos 68 U/L Normal 47-119 [facility] Comment on above: Performed By: #### F LUABA #### [facility] [address] [place] [address] Salt Maker: Demarco Aparicio MD ALT [Catalytic activity/Vol] 11 U/L Normal 5-33 [facility] Comment on above: Performed By: #### F LUABA #### [facility] [address] [place] [address] Salt Maker: Demarco Aparicio MD Anion gap [Moles/Vol] 9 mmol/L Normal 9-17 [facility] Comment on above: Performed By: #### F LUABA #### [facility] [address] [place] [address] Salt Maker: Demarco Aparicio MD AST [Catalytic activity/Vol] 16 U/L Normal <32 [facility] Comment on above: Performed By: #### F LUABA #### [facility] [address] [place] [address] Salt Maker: Demarco Aparicio MD Bilirubin [Mass/Vol] 0.2 mg/dL Low 0.3-1.2 [facility] Comment on above: Performed By: #### F LUABA #### [facility] [address] [place], [place] [phone] Salt Maker: Demarco Aparicio MD BUN/CRE Ratio 13 Normal 9-20 [facility] Comment on above: Performed By: #### F LUABA #### [facility] [address] [place], [place] [phone] Salt Maker: Demarco Aparicio MD Calcium [Mass/Vol] 9.2 mg/dL Normal 8.4-10.2 [facility] Comment on above: Performed By: #### F LUABA #### [facility] [address] [place], [place] [phone] Salt Maker: Demarco Aparicio MD Chloride [Moles/Vol] 102 mmol/L Normal 98-107 [facility] Comment on above: Performed By: #### F LUABA #### [facility] [address] [place], [place] [phone] Salt Maker: Demarco Aparicio MD CO2 [Moles/Vol] 23 mmol/L Normal 20-31 [facility] Comment on above: Performed By: #### F LUABA #### [facility] [address] [place], [place] [phone] Salt Maker: Demarco Aparicio MD Creatinine [Mass/Vol] 0.39 mg/dL Low 0.50-0.90 [facility] Comment on above: Performed By: #### F LUABA #### [facility] [address] [place], [place] [phone] Salt Maker: Demarco Aparicio MD eGFR Can not be calculated Normal >60 [facility] Comment on above: Result Comment: Pedi atric calculator link: https://www.kidney.org/professionals/kdoqi/gfr _calculatorped Effective Feb 26, 2022 These results are not intended for use in patients <18 years of age. eGFR results are calculated without a race factor using the 2020 CKD-EPI equation. Careful clinical correlation is recommended, particularly when comparing to results calculated using previous equations. The CKD-EPI equation is less accurate in patients with extremes of muscle mass, extra-renal metabolism of creatine, excessive creatine ingestion, or following therapy that affects renal tubular secretion. Performed By: #### F LUABA #### [facility] [address] [place] [phone] Salt Maker: Demarco Aparicio MD Glucose [Mass/Vol] 93 mg/dL Normal 60-100 [facility] Comment on above: Performed By: #### F LUABA #### [facility] [address] [place], [place] [phone] Salt Maker: Demarco Aparicio MD Potassium [Moles/Vol] 3.5 mmol/L Low 3.6-4.9 [facility] Comment on above: Performed By: #### F LUABA #### [facility] [address] [place] [address] [place]. [place], [place] [phone] Salt Maker: Demarco Aparicio MD Protein [Mass/Vol] 7.4 g/dL Normal 6.0-8.0 [facility] Comment on above: Performed By: #### F LUABA #### [facility] [address] [place] [address] [place] [place], [place] [phone] Salt Maker: Demarco Aparicio MD Sodium [Moles/Vol] 134 mmol/L Low 135-144 [facility] Comment on above: Performed By: #### F LUABA #### [facility] [address] [place], [place] [phone] Salt Maker: Demarco Aparicio MD Urea nitrogen [Mass/Vol] 5 mg/dL Normal 5-18 [facility] Comment on above: Performed By: #### F LUABA #### [facility] [address] [place] [address] [place] [place], [place] [phone] Salt Maker: Demarco Aparicio MD Flu A/B Ag Detectionon 05-23 Flu A Ag Detection Positive Abnormal NEG [facility] Comment on above: Result Comment: for Influenza A Antigen Performed By: #### F LUABA #### [facility] [address] [place], [place] [phone] Salt Maker: Demarco Aparicio MD Flu B Ag Detection Negative Normal NEG [facility] Comment on above: Result Comment: for Influenza B Antigen. Performed By: #### F LUABA #### [facility] [address] [place] [address] Salt Maker: Demarco Aparicio MD Magnesiumon 05-23-2022 Magnesium [Mass/Vol] 1.9 mg/dL Normal 1.7-2.2 [facility] Comment on above: Performed By: #### F LUABA #### [facility] [address] [place] [address] [place] [address] Salt Maker: Demarco Aparicio MD Magnesium [Mass/Vol] 1.9 mg/dL 1.7 - 2 .2 mg/dL [facility] No Panel Informationon 05-23 [facility] Rapid influenza A/B antigens on 05-23-2022 Flu A Antigen Positive Abnormal NEGATIVE [facility] Comment on above: for Influenza A Anti gen Flu B Antigen Negative NEGATIVE [facility] Comment on above: for Influenza B Anti gen. Interpretation and review of laboratory results Abnormal [facility] [id number] 05-23-2022 SARS-CoV-2 (COVID-19) RNA KRZYSZTOF+probe Ql (Unsp spec) Not detected Normal NOTDET [facility] Comment on above: Result Comment: Rapid NAAT: The specimen is NEGATIVE for SARS-CoV-2, the novel coronavirus associated with COVID-19. The ID NOW COVID-19 assay is designed to detect the virus that causes COVID-19 in patients with signs and symptoms of infection who are suspected of COVID-19. An individual without symptoms of COVID-19 and who is not shedding SARS-CoV-2 virus would expect to have a negative (not detected) result in this assay. Negative results should be treated as presumptive and, if inconsistent with clinical signs and symptoms or necessary for patient management, should be tested with an alternative molecular assay. Negative results do not preclude SARS-CoV-2 infection and should not be used as the sole basis for patient management decisions. Fact sheet for Healthcare Providers: https://www.fda.gov/media/513189/download Fact sheet for Patients: https://www.fda.gov/media/708596/download Methodology: Isothermal Nucleic Acid Amplification Performed By: #### F ELENIABA #### [facility] [address] [place] [address] Salt Maker: Demarco Aparicio MD Strep Gr A Direct Agon 05-23 Strep Gr A Direct Ag Negative Normal NEG [facility] Comment on above: Result Comment: Rapi d Strep A negative. A negative Rapid Group A StrepScreen result does not rule out the possibility of Group A Streptococci in the specimen. The [employer] recommends confirmation testing. Therefore, a Group A Strep DNA test will be performed. Performed By: #### R GPA #### [facility] [address] [place] [address] Salt Maker: Demarco Aparicio MD Source .THROAT SWAB Normal [facility] Comment on above: Performed By: #### R GPA #### [facility] [address] [place] [address] Salt Maker: Demarco Aparicio MD Strep Screen Group A Throato n 05-23-2022 S. pyogenes Ag Ql (Throat) Negative NEGATIVE [facility] Comment on above: Rapid Strep A negati ve. A negative Rapid Group A StrepScreen result does not rule out the possibility of Group A Streptococci in the specimen. The [employer] recommends confirmation testing. Therefore, a Group A Strep DNA test will be performed. Source .THROAT SWAB [facility] Urinalysis w/ Microon 2021 Bacteria 1+ Abnormal NONE [facility] Comment on above: Performed By: #### U AMIC #### [facility] [address] [place], [place] [phone] Salt Maker: Demarco Aparicio MD Bilirubin, SemiQt,Ur Negative Normal NEG [facility] Comment on above: Performed By: #### U AMIC #### [facility] [address] [place], [place] [phone] Salt Maker: Demarco Aparicio MD Blood, Urine Negative Normal NEG [facility] Comment on above: Performed By: #### U AMIC #### [facility] [address] [place], [place] [phone] Salt Maker: Demarco Aparicio MD Clarity (U) Clear Normal CLEAR [facility] Comment on above: Performed By: #### U AMIC #### [facility] [address] [place], [place] [phone] Salt Maker: Demarco Aparicio MD Color (U) Yellow Normal YEL [facility] Comment on above: Performed By: #### U AMIC #### [facility] [address] [place], [place] [phone] Salt Maker: Demarco Aparicio MD Epithelial cells LM Ql (Urine sed) 2 TO 5 Normal 0-25 [facility] Comment on above: Performed By: #### U AMIC #### [facility] [address] [place], [place] 2019483 Salt Maker: Demarco Aparicio MD Glucose Ql (U) Negative Normal NEG [facility] Comment on above: Performed By: #### U AMIC #### [facility] [address] [place], [place] [phone] Salt Maker: Demarco Aparicio MD Ketones Ql (U) Negative Normal NEG [facility] Comment on above: Performed By: #### U AMIC #### [facility] [address] [place], [place] [phone] Salt Maker: Demarco Aparicio MD Leukocyte esterase Test strip Ql (U) SMALL Abnormal NEG [facility] Comment on above: Performed By: #### U AMIC #### [facility] [address] [place], [place] [phone] Salt Maker: Demarco Aparicio MD Nitrite,Ur Negative Normal NEG [facility] Comment on above: Performed By: #### U AMIC #### [facility] [address] [place], [place] [phone] Salt Maker: Demarco Aparicio MD PH,Ur 6.0 Normal 5.0-9.0 [facility] Comment on above: Performed By: #### U AMIC #### [facility] [address] [place] [address] [place], [place] [phone] Salt Maker: Demarco Aparicio MD Protein Ql (U) Negative Normal NEG [facility] Comment on above: Performed By: #### U AMIC #### [facility] [address] [place] [address] [place]. [place], [place] [phone] Salt Maker: Demarco Aparicio MD Spec. [place],Ur <1.005 Low 1.010-1.020 [facility] Comment on above: Performed By: #### U AMIC #### [facility] [address] [place] [address] [place], [place] [phone] Salt Maker: Demarco Aparicio MD Urine RBC's 0 TO 2 Normal 0-2 [facility] Comment on above: Performed By: #### U AMIC #### [facility] [address] [place], [place] [phone] Salt Maker: Demarco Aparicio MD Urine WBC's 0 TO 2 Normal 0-5 [facility] Comment on above: Performed By: #### U AMIC #### [facility] [address] [place], [place] [phone] Salt Maker: Demarco Aparicio MD Urobilinogen,Ur Normal Normal NORM [facility] Comment on above: Performed By: #### U AMIC #### [facility] [address] [place] [address] Salt Maker: Demarco Aparicio MD Urinalysis with Microscopico n 05-23-2022 Bacteria, UA 1+ Abnormal None [facility] Bilirubin Urine Negative NEGATIVE [facility] Color, UA Yellow Yellow [facility] Epithelial Cells UA 2 TO 5 [facility] Glucose, Ur Negative NEGATIVE [facility] Interpretation and review of laboratory results Abnormal [facility] Ketones Ql (U) Negative NEGATIVE [facility] Leukocyte esterase Test strip Ql (U) SMALL Abnormal NEGATIVE [facility] Nitrite, Urine Negative NEGATIVE [facility] pH, UA 6.0 5.0 - 9.0 [facility] Protein, UA Negative NEGATIVE [facility] RBC, UA 0 TO 2 [facility] Specific [place], UA Low 1.010 - 1.020 [facility] Turbidity UA Clear Clear [facility] Urine Hgb Negative NEGATIVE [facility] Urobilinogen, Urine Normal Normal [facility] WBC, UA 0 TO 2 [facility] Chlamydia/GC DNA, Uron 05-18 Chlamydia Probe, Ur Negative Normal NEG [facility] Comment on above: Result Comment: CHLA MYDIA TRACHOMATIS DNA not detected by nucleic acid amplification. This test is intended for medical purposes only and is not valid for the evaluation of suspected sexual abuse or for other forensic purposes. In certain contexts, culture may be required to meet applicable laws and regulations for diagnosis of C. trachomatis and N. gonorrhoeae infections. Per 2014 CDC recommendations, this test does not include confirmation of positive results by an alternative nucleic acid target. Performed By: #### U CG #### [facility] [address] [place] [address] Salt Maker: Temo Peters MD Gonorrhea Probe, Ur Negative Normal NEG [facility] Comment on above: Result Comment: NEIS SERIA GONORRHOEAE DNA not detected by nucleic acid amplification. This test is intended for medical purposes only and is not valid for the evaluation of suspected sexual abuse or for other forensic purposes. In certain contexts, culture may be required to meet applicable laws and regulations for diagnosis of C. trachomatis and N. gonorrhoeae infections. Per 2014 CDC recommendations, this test does not include confirmation of positive results by an alternative nucleic acid target. Performed By: #### U CGP #### [id number] [place], [place] [phone] Salt Maker: Temo Peters MD Cult,Urineon 05-18-2022 Cult,Urine Specimen Description .CLEAN CATCH URINE Culture NO SIGNIFICANT GROWTH Report Status FINAL 05/18/2022 Normal [facility] Comment on above: Performed By: #### U RC #### [address] [address] Salt Maker: Temo Peters MD [facility] [address] [place] [address] Salt Maker: Demarco Aparicio MD HIV Ag/Abon 05-17-2022 HIV Ag/Ab Non-Reactive Normal [facility] Comment on above: Result Comment: No l aboratory evidence of HIV infection. If acute HIV infection is suspected, consider testing for HIV-1 RNA. Performed By: #### A HCV, HIVCMB #### [address] [phone] Salt Maker: Temo Peters MD HIV Screenon 05-17-2022 HIV Ag/Ab Non-Reactive NONREACTIVE [facility] Comment on above: No laboratory eviden ce of HIV infection. If acute HIV infection is suspected, consider testing for HIV-1 RNA. [facility] Hep C Abon 05-17-2022 Hep C Ab Non-Reactive Normal [facility] Comment on above: Result Comment: The hepatitis C procedure used in our laboratory is a Chemiluminescent test specific for three recombinant HCV antigens. A negative anti-HCV result indicates that the antibodies to hepatitis C virus are not present at this time. Individuals with reactive anti-HCV should be considered infected and infectious until proven otherwise. Confirmation of all equivocal or reactive results is recommended by ordering HCV RNA by PCR. Performed By: #### F LUABA #### [address] [place] [address] Salt Maker: Demarco Aparicio MD Hepatitis C Antibodyon 05-17 Hepatitis C Ab Non-Reactive NONREACTIVE [facility] Comment on above: The hepatitis C procedure used in our laboratory is a Chemiluminescent test specific for three recombinant HCV antigens. A negative anti-HCV result indicates that the antibodies to hepatitis C virus are not present at this time. Individuals with reactive anti-HCV should be considered infected and infectious until proven otherwise. Confirmation of all equivocal or reactive results is recommended by ordering HCV RNA by PCR. [facility] TYPE AND SCREENon 1 07-18-2021 ABO/Rh Positive [facility] Profileon T.pallidum Ab Screen Non-Reactive Normal NR [facility] Comment on above: Result Comment: T. pallidum antibodies are not detected. There is no serological evidence of infection with T. pallidum (early primary syphilis cannot be excluded). Retest in 2-4 weeks if syphilis is clinically suspect. Performed By: #### P RENAT #### [address] [place] [address] Salt Maker: Temo Peters MD [address] [place] [address] Salt Maker: Demarco Aparicio MD Basophils/100 WBC (Bld) 1 % Normal 0-2 [facility] Comment on above: Performed By: #### P RENAT #### [facility] [address] [place] [address] Salt Maker: Temo Peters MD [address] [place] [address] Salt Maker: Demarco Aparicio MD Eosinophils/100 WBC (Bld) 1 % Normal 1-4 [facility] Comment on above: Performed By: #### P RENAT #### [address] [address] Salt Maker: Temo Peters MD [address] [place] [facility]83 Salt Maker: Demarco Aparicio MD Hematocrit (Bld) [Volume fraction] 39.4 % Normal 36.3-47.1 [facility] Comment on above: Performed By: #### P RENAT #### [address] [address] Salt Maker: Temo Peters MD [address] [place] [phone] Salt Maker: Demarco Aparicio MD Hemoglobin (Bld) [Mass/Vol] 12.8 g/dL Normal 11.9-15.1 [facility] Comment on above: Performed By: #### P RENAT #### [address] [address] Salt Maker: Temo Peters MD [address] [place] [phone] Salt Maker: Demarco Aparicio MD Immature granulocytes/100 WBC (Bld) 1 % High 0 [facility] Comment on above: Performed By: #### P RENAT #### [address] [address] Salt Maker: Temo Peters MD [address] [place] [phone] Salt Maker: Demarco Aparicio MD Lymphocytes/100 WBC (Bld) 17 % Low 25-45 [facility] Comment on above: Performed By: #### P RENAT #### [address] [address] Salt Maker: Temo Peters MD [address] [place] [phone] Salt Maker: Demarco Aparicio MD MCH (RBC) [Entitic mass] 28.1 pg Normal 25.0-35.0 [facility] Comment on above: Performed By: #### P RENAT #### [address] [address] Salt Maker: Temo Peters MD [address] [place] [phone] Salt Maker: Demarco Aparicio MD MCHC (RBC) [Mass/Vol] 32.5 g/dL Normal 28.4-34.8 [facility] Comment on above: Performed By: #### P RENAT #### [address] [address] Salt Maker: Temo Peters MD [address] [place] [phone] Salt Maker: Demarco Aparicio MD MCV (RBC) [Entitic vol] 86.4 fL Normal 78.0-102.0 [facility] Comment on above: Performed By: #### P RENAT #### [address] [address] Salt Maker: Temo Peters MD [address] [place] [phone] Salt Maker: Demarco Aparicio MD Monocytes/100 WBC (Bld) 7 % Normal 2-8 [facility] Comment on above: Performed By: #### P RENAT #### [address] [address] Salt Maker: Temo Peters MD [address] [place] [address] Salt Maker: Demarco Aparicio MD Platelet mean volume (Bld) [Entitic vol] 9.8 fL Normal 8.1-13.5 [facility] Comment on above: Performed By: #### P RENAT #### [address] [address] Salt Maker: Temo Peters MD [address] [place] [address] Salt Maker: Demarco Aparicio MD Platelets (Bld) [#/Vol] 374 10*3/uL Normal 138-453 [facility] Comment on above: Performed By: #### P RENAT #### [address] [address] Salt Maker: Temo Peters MD [address] [place] [phone] Salt Maker: Demarco Aparicio MD RBC (Bld) [#/Vol] 4.56 10*6/uL Normal 3.95-5.11 [facility] Comment on above: Performed By: #### P RENAT #### [address] [address] Salt Maker: Temo Peters MD [address] [place] [phone] Salt Maker: Demarco Aparicio MD WBC (Bld) [#/Vol] 12.4 10*3/uL Normal 4.5-13.5 [facility] Comment on above: Performed By: #### P RENAT #### [address] [address] Salt Maker: Temo Peters MD [address] [place] [facility]83 Salt Maker: Demarco Aparicio MD Hep B Surf Ag Non-Reactive Normal NR [facility] Comment on above: Performed By: #### P RENAT #### [address] [address] Salt Maker: Temo Peters MD [address] [place] [address] Salt Maker: Demarco Apariico MD Rubella Ab, IgG 143.8 IU/mL Normal [facility] Comment on above: Result Comment: REFERENCE RANGE: <5.0 NON-REACTIVE (non-immune) 5.0 TO 9.9 EQUIVOCAL >=10.0 REACTIVE (immune) Performed By: #### P RENAT #### [address] [address] Salt Maker: Temo Peters MD [address] [place] [address] Salt Maker: Demarco Aparicio MD Abs. Basophil 0.07 k/uL Normal 0.00-0.20 [facility] Comment on above: Performed By: #### P RENAT #### [place] [address] Salt Maker: Temo Peters MD [address] [place] [address] Salt Maker: Demarco Aparicio MD Abs.Imm.Granulocyte 0.06 k/uL Normal 0.00-0.30 [facility] Comment on above: Performed By: #### P RENAT #### [place] [address] Salt Maker: Temo Peters MD [address] [place] [address] Salt Maker: Demarco Aparicio MD Abs.Neutrophil (Seg) 9.24 k/uL High 1.80-8.00 [facility] Comment on above: Performed By: #### P RENAT #### [place] [address] Salt Maker: Temo Peters MD [address] [place] [address] Salt Maker: Demarco Aparicio MD Eosinophils (Bld) [#/Vol] 0.14 10*3/uL Normal 0.00-0.44 [facility] Comment on above: Performed By: #### P RENAT #### [address] [place] [address] Salt Maker: Temo Peters MD [address] [place] [phone] Salt Maker: Demarco Aparicio MD Erythrocyte distribution width (RBC) [Ratio] 13.7 % Normal 11.8-14.4 [facility] Comment on above: Performed By: #### P RENAT #### [address] [address] Salt Maker: Temo Peters MD [address] [place] [address] Salt Maker: Demarco Aparicio MD Lymphocytes (Bld) [#/Vol] 2.09 10*3/uL Normal 1.20-5.20 [facility] Comment on above: Performed By: #### P RENAT #### [address] [address] Salt Maker: Temo Peters MD [address] [place] [address] Salt Maker: Demarco Aparicio MD Monocytes (Bld) [#/Vol] 0.82 10*3/uL Normal 0.10-1.40 [facility] Comment on above: Performed By: #### P RENAT #### [address] [address] Salt Maker: Temo Peters MD [address] [place] [address] Salt Maker: Demarco Aparicio MD Neutrophil (Seg) 73 % High 34-64 [facility] Comment on above: Performed By: #### P RENAT #### [address] [address] Salt Maker: Temo Peters MD [address] [place] [address] Salt Maker: Demarco Aparicio MD NRBC Automated 0.0 per 100 WBC Normal 0.0 [facility] Comment on above: Performed By: #### P RENAT #### [facility] [address] [place] [address] Salt Maker: Temo Peters MD [facility] [address] [place] [address] Salt Maker: Demarco Aparicio MD Profile Ion 022 Absolute Eos # 0.14 [place] [facility] Absolute Immature Granulocyte 0.06 [facility] Absolute Lymph # 2.09 [facility] Absolute [place] # 0.82 [facility] Basophils (Bld) [#/Vol] 0.07 10*3/uL [facility] Hepatitis B Surface Ag Non-Reactive NONREACTIVE [facility] Interpretation and review of laboratory results Abnormal [facility] NRBC Automated 0.0 0.0 per 100 WBC [facility] Platelet distribution width (Bld) [Ratio] 13.7 % 11.8 - 14.4 % [facility] Rubella virus IgG Ql (S) 143.8 IU/mL [facility] Comment on above: REFERENCE RANGE: <5.0 NON-REACTIVE (non-immune) 5.0 TO 9.9 EQUIVOCAL >=10.0 REACTIVE (immune) Segmented neutrophils/100 WBC (Bld) 73 % High 34 - 64 % [facility] Segs Absolute 9.24 High [facility] T. pallidum, IgG Non-Reactive NONREACTIVE [facility] Comment on above: T. pallidum antibodies are not detected. There is no serological evidence of infection with T. pallidum (early primary syphilis cannot be excluded). Retest in 2-4 weeks if syphilis is clinically suspect. [facility] Type + Scrnon 05-17 Type + Scrn Negative Normal [facility] Comment on above: Performed By: #### P RTYS #### [facility] [address] [place] [address] Salt Maker: Demarco Aparicio MD Toxicology Scree, Urineon Amphetamine(s),Ur Negative Normal [facility] Comment on above: Performed By: #### C PDAU #### [facility] [address] [place], [place] [phone] Salt Maker: Demarco Aparicio MD Barbiturate(s),Ur Negative Normal NEG [facility] Comment on above: Performed By: #### C PDAU #### [facility] [address] [place] [address] Salt Maker: Demarco Aparicio MD Benzodiazepine(s) Negative Normal [facility] Comment on above: Performed By: #### C PDAU #### [facility] [address] [place], [place] [phone] Salt Maker: Demarco Aparicio MD Buprenorphrine, Ur Negative Normal [facility] Comment on above: Performed By: #### C PDAU #### [facility] [address] [place] [address] Salt Maker: Demarco Aparicio MD Cannabinoid(s),Ur Positive Abnormal [facility] Comment on above: Performed By: #### C PDAU #### [facility] [address] [place] [address] Salt Maker: Demarco Aparicio MD Cocaine Metabolite Negative Normal [facility] Comment on above: Performed By: #### C PDAU #### [facility] [address] [place], [place] [phone] Salt Maker: Demarco Aparicio MD Methadone Negative Normal [facility] Comment on above: Performed By: #### C PDAU #### [facility] [address] [place], [place] [id number] Salt Maker: Demarco Aparicio MD Methamphetamine, Ur Negative Normal NEG [facility] Comment on above: Performed By: #### C PDAU #### [facility] [address] [place], [place] [id number] Salt Maker: Demarco Aparicio MD Opiate(s), Ur Negative Normal NEG [facility] Comment on above: Performed By: #### C PDAU #### [facility] [address] [place], [facility]83 Salt Maker: Demarco Aparicio MD Oxycodone, Urine Negative Normal NEG [facility] Comment on above: Performed By: #### C PDAU #### [facility] [address] [place], [facility]83 Salt Maker: Demarco Aparicio MD Phencyclidine, Ur Negative Normal [facility] Comment on above: Performed By: #### C PDAU #### [facility] [address] [place], [facility]83 Salt Maker: Demarco Aparicio MD Propoxyphene,Urine Negative Normal [facility] Comment on above: Performed By: #### C PDAU #### [facility] [address] [place], [facility]83 Salt Maker: Demarco Aparicio MD Tricyclic Antidepressants Negative Normal [facility] Comment on above: Result Comment: Drug screen results are to be used for medical purposes only. All positive results are unconfirmed. Testing for employment or legal uses should be sent to a reference laboratory for confirmation. Performed By: #### C PDAU #### [facility] [address] [place] [address] Salt Maker: Demarco Aparicio MD Urine Drug Screen, Tiffnaie carvalho 05-17-2022 Amphetamine Screen, Ur Negative NEGATIVE [facility] Barbiturate Screen, Ur Negative NEGATIVE [facility] Benzodiazepine Screen, Urine Negative NEGATIVE [facility] Buprenorphine Urine Negative NEGATIVE [facility] Cannabinoid Scrn, Ur Positive Abnormal NEGATIVE [facility] Cocaine Metabolite, Urine Negative NEGATIVE [facility] Interpretation and review of laboratory results Abnormal [facility] Methadone Screen, Urine Negative NEGATIVE [facility] Methamphetamine, Urine Negative NEGATIVE [facility] Opiates, Urine Negative NEGATIVE [facility] Oxycodone Screen, Ur Negative NEGATIVE [facility] Phencyclidine, Urine Negative NEGATIVE [facility] Propoxyphene, Urine Negative NEGATIVE [facility] Tricyclic Antidepressants, Urine Negative NEGATIVE [facility] Comment on above: Drug screen results are to be used for medical purposes only. All positive results are unconfirmed. Testing for employment or legal uses should be sent to a reference laboratory for confirmation. [facility] URINALYSISOrdered By: Antonio martinez on 10-03-2021 Bacteria LM Ql (Urine sed) Trace /HPF Normal Trace/HPF FT UA Auto SS Bilirubin Ql (U) Negative (10/03/21 4:18 PM) Normal Negative FT UA Auto SS Clarity (U) Slightly Cloudy *ABN* (10/03/21 4:18 PM) Invalid Interpretation Code Clear FT UA Auto SS Color (U) Yellow (10/03/21 4:18 PM) Normal Yellow FT UA Auto SS Epithelial cells.squamous LM.HPF (Urine sed) [#/Area] 5-8 /HPF Normal 0-2/HPF FT UA Auto SS Glucose Test strip (U) [Mass/Vol] Negative (10/03/21 4:18 PM) Normal Negative FT UA Auto SS Hemoglobin Ql (U) Negative (10/03/21 4:18 PM) Normal Negative [facility] UA Auto SS Ketones (U) [Mass/Vol] Trace *ABN* (10/03/21 4:18 PM) Invalid Interpretation Code Negative FT UA Auto SS [place] [facility].plasma/Lithiu m.RBC (Bld) [Mass ratio] 4-20 /HPF Normal 0-3/HPF [facility] UA Auto SS Mucus Ql (Urine sed) 2+ (10/03/21 4:18 PM) Normal FT UA Auto SS Nitrite Ql (U) Negative (10/03/21 4:18 PM) Normal Negative FT UA Auto SS pH (U) 6.0 *NA* (10/03/21 4:18 PM) Invalid Interpretation Code 5.0 - 9.0 FT UA Auto SS Phosphate crystals amorphous LM Ql (Urine sed) Present (10/03/21 4:18 PM) Normal FT UA Auto SS Protein (U) [Mass/Vol] 1+ *ABN* (10/03/21 4:18 PM) Invalid Interpretation Code Negative FT UA Auto SS Specific gravity (U) [Rel density] >=1.030 *NA* (10/03/21 4:18 PM) Invalid Interpretation Code 1.005 - 1.030 FT UA Auto SS UA Spec Desc Clean Catch (10/03/21 4:18 PM) Normal [facility] UA Auto SS Urobilinogen Qn (U) 0.7691371 {Donna'U}/dL Normal 0.0 - 1.0 EU/dL FT UA Auto SS WBC Auto Ql (U) Trace *ABN* (10/03/21 4:18 PM) Invalid Interpretation Code Negative [facility] UA Auto SS WBC LM.HPF (Urine sed) [#/Area] 0-5 /HPF Normal 0-5/HPF FT UA Auto SS Complete Blood Count Auto Di ffon 08-29-2020 Basophils (Bld) [#/Vol] 0.0 10*3/uL Normal 0.0-0.1 [facility] Comment on above: Order Comment: Name Collection Type:: Clean-Voided Midstream Result Comment: PERF ORMED BY: [place] [address] PATHOLOGIST FASHION SHOW DIRECTOR ROSALINO BARRERA M.D. Performed By: #### A DDONUAPLUS, AMNISURE-, OBUDS #### [facility] [address] [place] [address] [place] Basophils/100 WBC (Bld) 0.3 % Normal . [facility] Comment on above: Order Comment: Name Collection Type:: Clean-Voided Midstream Performed By: #### A DDONUAPLUS, AMNISURE-, OBUDS #### [facility] [address] [place] [address] [place] Eosinophils (Bld) [#/Vol] 0.1 10*3/uL Normal 0.0-0.7 [facility] Comment on above: Order Comment: Name Collection Type:: Clean-Voided Midstream Performed By: #### A DDONUAPLUS, AMNISURE-, OBUDS #### [place] [address] [place] Eosinophils/100 WBC (Bld) 0.7 % Normal . [facility] Comment on above: Order Comment: Name Collection Type:: Clean-Voided Midstream Performed By: #### A DDONUAPLUS, AMNISURE-, OBUDS #### [address] Erythrocyte distribution width (RBC) [Ratio] 13.6 % Normal 11.9-15.3 [facility] Comment on above: Order Comment: Name Collection Type:: Clean-Voided Midstream Performed By: #### A DDONUAPLUS, AMNISURE-, OBUDS #### [address] Hematocrit (Bld) [Volume fraction] 29.7 % Low 36.0-46.0 [facility] Comment on above: Order Comment: Name Collection Type:: Clean-Voided Midstream Performed By: #### A DDONUAPLUS, AMNISURE-, OBUDS #### [address] Hemoglobin (Bld) [Mass/Vol] 10.1 g/dL Low 12.0-16.0 [facility] Comment on above: Order Comment: Name Collection Type:: Clean-Voided Midstream Performed By: #### A DDONUAPLUS, AMNISURE-, OBUDS #### [place] [address] [place] Lymphocytes (Bld) [#/Vol] 3.0 10*3/uL Normal 1.20-4.8 [facility] Comment on above: Order Comment: Name Collection Type:: Clean-Voided Midstream Performed By: #### A DDONUAPLUS, AMNISURE-, OBUDS #### [place] [address] [place] Lymphocytes/100 WBC (Bld) 19.3 % Normal . [facility] Comment on above: Order Comment: Name Collection Type:: Clean-Voided Midstream Performed By: #### A DDONUAPLUS, AMNISURE-, OBUDS #### [address] MCH (RBC) [Entitic mass] 29.1 pg Normal 25.0-35.0 [facility] Comment on above: Order Comment: Name Collection Type:: Clean-Voided Midstream Performed By: #### A DDONUAPLUS, AMNISURE-, OBUDS #### [address] MCV (RBC) [Entitic vol] 85.1 fL Normal 78-102 [facility] Comment on above: Order Comment: Name Collection Type:: Clean-Voided Midstream Performed By: #### A DDONUAPLUS, AMNISURE-, OBUDS #### [address] Mean Corpuscular HGB Conc 34.2 g/dL Normal 31.0-37.0 [facility] Comment on above: Order Comment: Name Collection Type:: Clean-Voided Midstream Performed By: #### A DDONUAPLUS, AMNISURE-, OBUDS #### [place] [address] [place] Monocytes (Bld) [#/Vol] 1.4 10*3/uL High 0.1-1.00 [facility] Comment on above: Order Comment: Name Collection Type:: Clean-Voided Midstream Performed By: #### A DDONUAPLUS, AMNISURE-, OBUDS #### [place] [address] [place] Monocytes/100 WBC (Bld) 8.8 % Normal . [facility] Comment on above: Order Comment: Name Collection Type:: Clean-Voided Midstream Performed By: #### A DDONUAPLUS, AMNISURE-, OBUDS #### [place] [address] [place] Neutrophils (Bld) [#/Vol] 11.0 10*3/uL High 1.2-7.7 [facility] Comment on above: Order Comment: Name Collection Type:: Clean-Voided Midstream Performed By: #### A DDONUAPLUS, AMNISURE-, OBUDS #### [place] [address] [place] Neutrophils/100 WBC (Bld) 70.9 % Normal . [facility] Comment on above: Order Comment: Name Collection Type:: Clean-Voided Midstream Performed By: #### A DDONUAPLUS, AMNISURE-, OBUDS #### [place] [address] [place] Nucleated RBC/100 WBC (Bld) [Ratio] 0.0 % Normal 0-0.5 [facility] Comment on above: Order Comment: Name Collection Type:: Clean-Voided Midstream Performed By: #### A DDONUAPLUS, AMNISURE-, OBUDS #### [place] [address] [place] Platelet mean volume (Bld) [Entitic vol] 8.8 fL Normal 6.3-10.7 [facility] Comment on above: Order Comment: Name Collection Type:: Clean-Voided Midstream Performed By: #### A DDONUAPLUS, AMNISURE-, OBUDS #### [place] [address] [place] Platelets (Bld) [#/Vol] 197 10*3/uL Normal 150-450 [facility] Comment on above: Order Comment: Name Collection Type:: Clean-Voided Midstream Performed By: #### A DDONUAPLUS, AMNISURE-, OBUDS #### [place] [address] [place] RBC (Bld) [#/Vol] 3.49 10*6/uL Low 4.10-5.10 [facility] Comment on above: Order Comment: Name Collection Type:: Clean-Voided Midstream Performed By: #### A DDONUAPLUS, AMNISURE-, OBUDS #### [facility] [address] WBC (Bld) [#/Vol] 15.5 10*3/uL High 4.5-13.5 [facility] Comment on above: Order Comment: Name Collection Type:: Clean-Voided Midstream Performed By: #### A DDONUAPLUS, AMNISURE-, OBUDS #### [facility] [address] Amnisure(Pamg-1)on 1 Amnisure Negative Normal Negative [facility] Comment on above: Order Comment: Comme nt For suspected repture of membranes Result Comment: PERF ORMED BY: [place] [address] PATHOLOGIST FASHION SHOW DIRECTOR ROSALINO BARRERA M.D. Performed By: #### A DDONUAPLUS, AMNISURE-, OBUDS #### [address] COVID-19 Antigenon 1 COVID-19 Antigen Healthcare Worker?: N Fred Reference Fred Reference Negative SARS-CoV+SARS-CoV-2 (COVID-19) Ag [Presence] in Respiratory specimen by Rapid immunoassay Negative for SARS Antigen by RAUL COVID19 Blank Space -- Fred Disclaimer Negative results, from patients with symptom Fred Disclaimer onset beyond five days, should be treated as Fred Disclaimer presumptive and confirmation with a molecular Fred Disclaimer assay, if necessary, for patient management, Fred Disclaimer may be performed. Negative results do not rule Fred Disclaimer out COVID-19 and should not be used as the sole Fred Disclaimer basis for treatment or patient management Fred Disclaimer decisions, including infection control decisions. Fred Disclaimer Negative results should be considered in the Fred Disclaimer context of a patient's recent exposures, history Fred Disclaimer and the presence of clinical signs and symptoms Fred Disclaimer consistent with COVID-19. COVID19 Blank Space -- Fred Disclaimer The Fred SARS Antigen RAUL does not differentiate Fred Disclaimer between SARS-CoV and SARS-CoV-2. COVID19 Blank Space -- Fred Disclaimer This test was developed and its performance Fred Disclaimer characteristic determined by [employer] and Fred Disclaimer validated at [facility]. This Fred Disclaimer test has not been FDA cleared or approved. This Fred Disclaimer test has been authorized by FDA under an Emergency Use Fred Disclaimer Authorization (EUA). This test has been validated Fred Disclaimer in accordance with the FDA's Guidance Document (Policy Fred Disclaimer for Diagnostics Testing in Laboratories Certified to Fred Disclaimer Perform High Complexity Testing under CLIA prior to Fred Disclaimer Emergency Use Authorization for Coronavirus Fred Disclaimer is during the Public Health Emergency) Fred Disclaimer issued on August 27, 2019. This test is only authorized Fred Disclaimer for the duration of time the declaration that Fred Disclaimer circumstances exist justifying the authorization of Fred Disclaimer the emergency use of in vitro diagnostic tests for Fred Disclaimer detection of SARS-CoV-2 virus and/or diagnosis of Fred Disclaimer COVID-19 infection under section 564(b)(1) of the Fred Disclaimer Act, 21 U.S.C. 360bbb-3(b)(1), unless the Fred Disclaimer authorization is terminated or revoked sooner. PERFORMED BY: [facility] [place] [address] PATHOLOGIST FASHION SHOW DIRECTOR ROSALINO BARRERA M.D. Normal [facility] Comment on above: Performed By: #### C OVID-19 FRED, SOFIANEG #### [address] Complete Blood Count Auto Di ffon 08-28-2020 Basophils (Bld) [#/Vol] 0.0 10*3/uL Normal 0.0-0.1 [facility] Comment on above: Result Comment: PERF ORMED BY: [place] [address] PATHOLOGIST FASHION SHOW DIRECTOR ROSALINO BARRERA M.D. Performed By: #### R PA W RFX, RUBELLA IGG, HBSAG #### [facility] , #### CBC #### [address] Basophils/100 WBC (Bld) 0.4 % Normal . [facility] Comment on above: Performed By: #### R PA W RFX, RUBELLA IGG, HBSAG #### [facility] , #### CBC #### [address] Eosinophils (Bld) [#/Vol] 0.0 10*3/uL Normal 0.0-0.7 [facility] Comment on above: Performed By: #### R PA W RFX, RUBELLA IGG, HBSAG #### [facility] , #### CBC #### [address] Eosinophils/100 WBC (Bld) 0.4 % Normal . [facility] Comment on above: Performed By: #### R PA W RFX, RUBELLA IGG, HBSAG #### [facility] , #### CBC #### [address] Erythrocyte distribution width (RBC) [Ratio] 13.5 % Normal 11.9-15.3 [facility] Comment on above: Performed By: #### R PA W RFX, RUBELLA IGG, HBSAG #### [facility] , #### CBC #### [address] Hematocrit (Bld) [Volume fraction] 31.0 % Low 36.0-46.0 [facility] Comment on above: Performed By: #### R PA W RFX, RUBELLA IGG, HBSAG #### [facility] , #### CBC #### [address] Hemoglobin (Bld) [Mass/Vol] 10.7 g/dL Low 12.0-16.0 [facility] Comment on above: Performed By: #### R PA W RFX, RUBELLA IGG, HBSAG #### [facility] , #### CBC #### [address] Lymphocytes (Bld) [#/Vol] 2.1 10*3/uL Normal 1.20-4.8 [facility] Comment on above: Performed By: #### R PA W RFX, RUBELLA IGG, HBSAG #### [facility] , #### CBC #### [address] Lymphocytes/100 WBC (Bld) 19.0 % Normal . [facility] Comment on above: Performed By: #### R PA W RFX, RUBELLA IGG, HBSAG #### [facility] , #### CBC #### [address] MCH (RBC) [Entitic mass] 28.9 pg Normal 25.0-35.0 [facility] Comment on above: Performed By: #### R PA W RFX, RUBELLA IGG, HBSAG #### [facility] , #### CBC #### [address] MCV (RBC) [Entitic vol] 84.0 fL Normal 78-102 [facility] Comment on above: Performed By: #### R PA W RFX, RUBELLA IGG, HBSAG #### [facility] , #### CBC #### [address] Mean Corpuscular HGB Conc 34.3 g/dL Normal 31.0-37.0 [facility] Comment on above: Performed By: #### R PA W RFX, RUBELLA IGG, HBSAG #### [facility] , #### CBC #### [address] Monocytes (Bld) [#/Vol] 1.2 10*3/uL High 0.1-1.00 [facility] Comment on above: Performed By: #### R PA W RFX, RUBELLA IGG, HBSAG #### [facility] , #### CBC #### [place] [address] [place] Monocytes/100 WBC (Bld) 10.8 % Normal . [facility] Comment on above: Performed By: #### R PA W RFX, RUBELLA IGG, HBSAG #### [facility] , #### CBC #### [place] [address] [place] Neutrophils (Bld) [#/Vol] 7.7 10*3/uL Normal 1.2-7.7 [facility] Comment on above: Performed By: #### R PA W RFX, RUBELLA IGG, HBSAG #### [facility] , #### CBC #### [facility] [address] [place] [address] [place] Neutrophils/100 WBC (Bld) 69.4 % Normal . [facility] Comment on above: Performed By: #### R PA W RFX, RUBELLA IGG, HBSAG #### [facility] , #### CBC #### [address] [place] [address] [place] Nucleated RBC/100 WBC (Bld) [Ratio] 0.1 % Normal 0-0.5 [facility] Comment on above: Performed By: #### R PA W RFX, RUBELLA IGG, HBSAG #### [facility] , #### CBC #### [address] Platelet mean volume (Bld) [Entitic vol] 9.1 fL Normal 6.3-10.7 [facility] Comment on above: Performed By: #### R PA W RFX, RUBELLA IGG, HBSAG #### [facility] , #### CBC #### [address] Platelets (Bld) [#/Vol] 225 10*3/uL Normal 150-450 [facility] Comment on above: Performed By: #### R PA W RFX, RUBELLA IGG, HBSAG #### [facility] , #### CBC #### [address] RBC (Bld) [#/Vol] 3.69 10*6/uL Low 4.10-5.10 [facility] Comment on above: Performed By: #### R PA W RFX, RUBELLA IGG, HBSAG #### [facility] , #### CBC #### [address] WBC (Bld) [#/Vol] 11.1 10*3/uL Normal 4.5-13.5 [facility] Comment on above: Performed By: #### R PA W RFX, RUBELLA IGG, HBSAG #### [facility] , #### CBC #### [address] Dipstick and Microscopicon 0 08-28-2020 Appearance (U) Clear Normal Clear [facility] Comment on above: Order Comment: Name Collection Type:: Clean-Voided Midstream Performed By: #### A DDONUAPLUS, AMNISURE-, OBUDS #### [facility] [address] [place] [address] [place] Bacteria,Urine None Seen Normal None Seen [facility] Comment on above: Order Comment: Name Collection Type:: Clean-Voided Midstream Performed By: #### A DDONUAPLUS, AMNISURE-, OBUDS #### [facility] [address] [place] [address] [place] Bilirubin,Urine Negative Normal Negative [facility] Comment on above: Order Comment: Name Collection Type:: Clean-Voided Midstream Performed By: #### A DDONUAPLUS, AMNISURE-, OBUDS #### [facility] [address] [place] [address] [place] Color (U) Yellow Normal Yellow [facility] Comment on above: Order Comment: Name Collection Type:: Clean-Voided Midstream Performed By: #### A DDONUAPLUS, AMNISURE-, OBUDS #### [facility] [address] [place] [address] [place] Glucose Ql (U) Normal Normal Normal [facility] Comment on above: Order Comment: Name Collection Type:: Clean-Voided Midstream Performed By: #### A DDONUAPLUS, AMNISURE-, OBUDS #### [facility] [address] [place] [address] [place] Hyaline Casts,Urine 0-8 Normal 0-8 [facility] Comment on above: Order Comment: Name Collection Type:: Clean-Voided Midstream Result Comment: PERF ORMED BY: [place] [address] PATHOLOGIST FASHION SHOW DIRECTOR ROSALINO BARRERA M.D. Performed By: #### A DDONUAPLUS, AMNISURE-, OBUDS #### [facility] [address] [place] [address] [place] Ketones Ql (U) Trace High Negative [facility] Comment on above: Order Comment: Name Collection Type:: Clean-Voided Midstream Performed By: #### A DDONUAPLUS, AMNISURE-, OBUDS #### [address] Leukocyte esterase Test strip Ql (U) Negative Normal Negative [facility] Comment on above: Order Comment: Name Collection Type:: Clean-Voided Midstream Performed By: #### A DDONUAPLUS, AMNISURE-, OBUDS #### [address] Nitrite,Urine Negative Normal Negative [facility] Comment on above: Order Comment: Name Collection Type:: Clean-Voided Midstream Performed By: #### A DDONUAPLUS, AMNISURE-, OBUDS #### [address] Occult Blood,Urine 3+ High Negative [facility] Comment on above: Order Comment: Name Collection Type:: Clean-Voided Midstream Result Comment: PERF ORMED BY: [place] [address] PATHOLOGIST FASHION SHOW DIRECTOR ROSALINO BARRERA M.D. Performed By: #### A DDONUAPLUS, AMNISURE-, OBUDS #### [address] pH (U) 6.0 [pH] Normal 5.0-9.0 [facility] Comment on above: Order Comment: Name Collection Type:: Clean-Voided Midstream Performed By: #### A DDONUAPLUS, AMNISURE-, OBUDS #### [address] Protein (U) [Mass/Vol] 100 mg/dL High Negative [facility] Comment on above: Order Comment: Name Collection Type:: Clean-Voided Midstream Performed By: #### A DDONUAPLUS, AMNISURE-, OBUDS #### [address] RBC,Urine Innumerable High 0-4 [facility] Comment on above: Order Comment: Name Collection Type:: Clean-Voided Midstream Performed By: #### A DDONUAPLUS, AMNISURE-, OBUDS #### [address] Specificy [place],Urine 1.027 Normal 1.001-1.030 [facility] Comment on above: Order Comment: Name Collection Type:: Clean-Voided Midstream Performed By: #### A DDONUAPLUS, AMNISURE-, OBUDS #### [address] Squamous Epithelial Cell,Urine 0-1 Normal 0-2 [facility] Comment on above: Order Comment: Name Collection Type:: Clean-Voided Midstream Performed By: #### A DDONUAPLUS, AMNISURE-, OBUDS #### [address] Urobilinogen,Urine Normal Normal Normal [facility] Comment on above: Order Comment: Name Collection Type:: Clean-Voided Midstream Performed By: #### A DDONUAPLUS, AMNISURE-, OBUDS #### [address] WBC,Urine 3-4 Normal 0-4 [facility] Comment on above: Order Comment: Name Collection Type:: Clean-Voided Midstream Performed By: #### A DDONUAPLUS, AMNISURE-, OBUDS #### [address] Hepatitis B Surface Antigeno n 08-28-2020 HBsAg Screen Negative Normal Negative [facility] Comment on above: Result Comment: Perf ormed at: CB - [facility] [address] [id number] Salt Maker: Henrik Darling PhD, Phone: [phone] Performed By: #### R PA W RFX, RUBELLA IGG, HBSAG #### [facility] , #### CBC #### [place] [address] [place] Aldo 08-28-2020 L ------ Specimen: [id number] Received: 08/29/20 Status: VICK Zheng Num: [id number] Spec Type: Surgical Subm Dr: GEREMIAS Gonsalez Tissues: A Placenta - 3rd Trimester (Greater than 28 weeks) (PLACENTA AND CORD) Procedures: YASMEEN Stain/5, Gross/Micro L5 Patient Age/Sex Location Account Attending Physician Concha Alarcon 14/ [id number] GEREMIAS Gonsalez SPEC NUM: [id number] RECD: 08/29/20 STATUS: VICK ZHENG NUM: [id number] STEVAN: 08/28/[address]: Monica Estrada MD-NOMS ENTERED: 08/29/20 [facility] DR: SPEC TYPE: Surgical DEPT: S ORDERED: HE Stain/5, Gross/Micro L5 ORDERED: HE Stain/5, Gross/Micro L5 Pathological Diagnosis Placenta and cord, vaginal delivery: - Mature maza placenta (weight: 406 g) with three-vessel umbilical cord - Placental membranes showing rare pigment laden macrophages - Placental disc showing subchorionic and intervillous fibrin deposition with focal calcifications Clinical Information 37-5/7 weeks IUP, viable male Gross Description Received in formalin labeled with the patient's name, number and placenta and cord is a 15.9 x 15.9 x 3.5 cm irregular shaped maza placenta. The marginally inserted, focally attached trejo, translucent membranes are disrupted and a point of rupture is indeterminate. Eccentrically located, 3 cm to the disc edge is a 21 cm in length x 1.5 cm in diameter trejo- grace, slightly coiled trivascular umbilical cord. The surface is pink - purple and focally disrupted. The maternal surface appears intact and complete with no obvious missing cotyledons. The placenta is 406 g after removal of the umbilical cord and membranes. Sectioning reveals red spongy parenchyma with no masses or lesions identified. Diabetic Educator sections are submitted in 5 cassettes as follows: A1 - umbilical cord and membrane roll A2 - Maternal umbilical cord and membrane roll A3 - Central A4 - Peripheral A5 - Focal area of surface disruption (SM/JS) Specimen: [id number] Received: 08/29/20 Status: VICK [place] Num: [id number] Spec Type: Surgical Subm Dr: Monica Estrada MD-[facility] Tissues: A Placenta - 3rd Trimester (Greater than 28 weeks) (PLACENTA AND CORD) Procedures: HE Stain/5, Gross/Micro L5 Patient: Concha Alarcon [id number] (Continued) Specimen: [id number] Received: 08/29/20 (Continued) Signed (signature on file) Rosalino Barrera MD 08/30/20 1447 Specimen: [id number] Received: 08/29/20 Status: VICK Zheng Num: [id number] Spec Type: Surgical Subm Dr: Monica Estrada MD-[facility] Tissues: A Placenta - 3rd Trimester (Greater than 28 weeks) (PLACENTA AND CORD) Procedures: YASMEEN Stain/5, Gross/Micro L5 Patient: Concha Alarcon [id number] (Continued) Specimen: Received: 08/29/20 (Continued) Microscopic Description Five glass slides with H E stained material have been examined. The microscopic findings support the above pathologic diagnosis. [id number] Specimen: Received: 08/29/20 Status: VICK Zheng Num: [id number] Spec Type: Surgical Subm Dr: Monica Estrada MD-[facility] Tissues: A Placenta - 3rd Trimester (Greater than 28 weeks) (PLACENTA AND CORD) Procedures: HE Stain/5, Gross/Micro L5 Patient: Concha Alarcon [id number] (Continued) Signed (signature on file) Rosalino Barrera MD 08/30/20 1447 [facility] OB Urine Drug Screen (NO THC )on 08-28-2020 Amphetamine Screen,Urine Negative Normal Negative [facility] Comment on above: Performed By: #### A DDONUAPLUS, AMNISURE-, OBUDS #### [facility] [address] [place] [address] [place] Barbiturate Screen,Urine Negative Normal Negative [facility] Comment on above: Performed By: #### A DDONUAPLUS, AMNISURE-, OBUDS #### [facility] [address] [place] [address] [place] Benzodiazepines Screen,Urine Negative Normal Negative [facility] Comment on above: Performed By: #### A DDONUAPLUS, AMNISURE-, OBUDS #### [facility] [address] [place] [address] [place] Cocaine Screen,Urine Negative Normal Negative [facility] Comment on above: Performed By: #### A DDONUAPLUS, AMNISURE-, OBUDS #### [facility] [address] [place] [address] [place] Opiate Screen,Urine Negative Normal Negative [facility] Comment on above: Performed By: #### A DDONUAPLUS, AMNISURE-, OBUDS #### [facility] [address] [place] [address] [place] Phencyclidine Screen, Urine Negative Normal Negative [facility] Comment on above: Result Comment: Thes e are unconfirmed results and should not be used for legal purposes. Drug Cut-Off Concentration: AMPH 1000 ng/mL TIFFANIE 200 ng/mL BRENDON 200 ng/mL COCM 300 ng/mL OP 300 ng/mL PCP 25 ng/mL PERFORMED BY: [place] [address] PATHOLOGIST FASHION SHOW DIRECTOR ROSALINO BARRERA M.D. Performed By: #### A DDONUAPLUS, AMNISURE-, OBUDS #### [address] RPR w/rfx to Quant TP Abson 08-28-2020 RPR, Rfx Quant RPR Non-Reactive Normal Non Reactive [facility] Comment on above: Result Comment: PERF ORMED BY: [place] [address] PATHOLOGIST FASHION SHOW DIRECTOR ROSALINO BARRERA M.D. Performed By: #### R PA W RFX, RUBELLA IGG, HBSAG #### [facility] , #### CBC #### [address] Rubella IgG Antibodyon 08-28 Rubella IgG Antibody 1.95 Normal Immune >0.99 [facility] Comment on above: Result Comment: Non- immune <0.90 Equivocal 0.90 - 0.99 Immune >0.99 Performed at: [facility] [address] [id number] Salt Maker: Henrik Darling PhD, Phone: [phone] Performed By: #### R PA W RFX, RUBELLA IGG, HBSAG #### [facility] , #### CBC #### [address] Fred Ag Negativeon 08-29-19 21 Fred Ag Negative Negative Normal Negative [facility] Comment on above: Result Comment: This is a duplicate Fred SARS Antigen (RAUL) result to be used for statistical tracking purpose only. PERFORMED BY: [place] [id number] PATHOLOGIST FASHION SHOW DIRECTOR ROSALINO BARRERA M.D. Performed By: #### C OVID-19 MOLLY IBARRA #### [address] Type and Screenon 08-28-2020 ABO and Rh group Nom (Bld) Blood group O Rh(D) positive Normal [facility] Comment on above: Result Comment: PERF ORMED BY: [place] [address] PATHOLOGIST FASHION SHOW DIRECTOR ROSALINO BARRERA M.D. CT Head WO ContrastOrdered B y: Sulaiman Ortiz on 06-15-2019 No acute intracrania l abnormality. [employer] Phone: EXAMINATION: CT HEAD WO CONTRAST HISTORY: Reason for exam:->severe headache worsening since last night, struck in head by another in cheerleading accident night prior COMPARISON: January 09, 2018 TECHNIQUE: CT examination of the head without IV contrast. Dose reduction techniques were achieved by using automated exposure control and/or adjustment of mA and/or kV according to patient size and/or use of iterative reconstruction technique. FINDINGS: The structures of the posterior fossa and supratentorial space are developmentally normal. Grace/white matter differentiation is preserved throughout. No evident skull fracture, hemorrhage or acute ischemia. No midline shift or mass. Normal size of the ventricles and sulci for age. Normal orbits. Pneumatized portions of the skull are clear. [employer] Phone: Mikel, Mh[employer] Incoming R adiant Results From [employer] - 06/15/2019 5:13 PM EST EXAMINATION: CT HEAD WO CONTRAST HISTORY: Reason for exam:->severe headache worsening since last night, struck in head by another in cheerleading accident night prior COMPARISON: January 09, 2018 TECHNIQUE: CT examination of the head without IV contrast. Dose reduction techniques were achieved by using automated exposure control and/or adjustment of mA and/or kV according to patient size and/or use of iterative reconstruction technique. FINDINGS: The structures of the posterior fossa and supratentorial space are developmentally normal. Grace/white matter differentiation is preserved throughout. No evident skull fracture, hemorrhage or acute ischemia. No midline shift or mass. Normal size of the ventricles and sulci for age. Normal orbits. Pneumatized portions of the skull are clear. IMPRESSION: No acute intracranial abnormality. [employer] Work Phone: Vital Signs Date Time Vital Sign Value Performing Clinician Evita grady 11-05-2024 10:34-0400 Body mass index (BMI) [Ratio] 19.18 kg/m2 [employer] Work Phone: [facility] [employer] 11-05-2024 10:34-0400 Body weight 49.1 kg [employer] Work Phone: [facility] [employer] 11-05-2024 10:34-0400 Diastolic blood pressure 70 mm[Hg] [employer] Work Phone: [facility] [employer] 11-05-2024 10:34-0400 Systolic blood pressure 112 mm[Hg] [employer] Work Phone: [facility] [employer] 09-28-2024 14:34-0400 Body mass index (BMI) [Ratio] 19.04 kg/m2 [employer] Work Phone: [facility] [employer] 09-28-2024 14:34-0400 Body weight 48.76 kg [employer] Work Phone: [facility] [employer] 09-28-2024 14:34-0400 Diastolic blood pressure 80 mm[Hg] Ross Sujey [employer] Work Phone: [facility] [employer] 09-28-2024 14:34-0400 Systolic blood pressure 110 mm[Hg] [employer] Work Phone: [facility] [employer] 08-28-2024 18:30-0400 Diastolic blood pressure 58 mm[Hg] [facility] 08-28-2024 18:30-0400 Heart rate 87 /min [facility]rogene [facility] 08-28-2024 18:30-0400 SaO2% (BldA) [Mass fraction] 100 % [facility]rogen[facility] 08-28-2024 18:30-0400 Systolic blood pressure 109 mm[Hg] [employer] 08-28-2024 16:45-0400 Body temperature 98.6 [degF] [employer] [place] 08-28-2024 16:45-0400 Respiratory rate 16 /min [employer] [place] 10-18-2023 13:22-0400 Body height 160 cm Dede Bony PA-C Work Phone: [phone] [place] [address] 10-18-2023 13:22-0400 Body mass index (BMI) [Percentile] Per age and sex 46.48 % Dede Bony PA-C Work Phone: 2(067)[phone] [place] [address] 10-18-2023 13:22-0400 Body mass index (BMI) [Ratio] 21.26 kg/m2 Dede Bony PA-C Work Phone: [phone](522)[phone] [place] [address] 10-18-2023 13:22-0400 Body temperature 97.9 [degF] Dede Bony PA-C Work Phone: [phone] [place] [address] 10-18-2023 13:22-0400 Body weight 54.43 kg Dede Bony PA-C Work Phone: 6(444)[phone] [place] [address] 10-18-2023 13:22-0400 Diastolic blood pressure 69 mm[Hg] Dede Bony PA-C Work Phone: 3(396)[phone] [place] [address] 10-18-2023 13:22-0400 Heart rate 111 /min Dede Bony PA-C Work Phone: [phone] [place] [address] 10-18-2023 13:22-0400 Respiratory rate 16 /min Dede Bony PA-C Work Phone: 7([phone] [place] [address] 10-18-2023 13:22-0400 SaO2% (BldA) [Mass fraction] 97 % Dede Bony PA-C Work Phone: [phone] [place] [address] 10-18-2023 13:22-0400 Systolic blood pressure 108 mm[Hg] Dede Bony PA-C Work Phone: [facility] 06-15-2023 19:54-0500 Diastolic blood pressure 72 mm[Hg] No Generic Provider [facility] 06-15-2023 19:54-0500 Heart rate 85 /min No Generic Provider [facility] 06-15-2023 19:54-0500 Respiratory rate 18 /min No Generic Provider [facility] 06-15-2023 19:54-0500 SaO2% (BldA) [Mass fraction] 100 % No Generic Provider [facility] 06-15-2023 19:54-0500 Systolic blood pressure 114 mm[Hg] No Generic Provider [facility] 06-15-2023 18:22-0500 Body height 160 cm No Generic Provider [facility] 06-15-2023 18:22-0500 Body mass index (BMI) [Percentile] Per age and sex 38 % No Generic Provider [facility] 06-15-2023 18:22-0500 Body mass index (BMI) [Ratio] 20.55 kg/m2 No Generic Provider [facility] 06-15-2023 18:22-0500 Body temperature 97.2 [degF] No Generic Provider [facility] 06-15-2023 18:22-0500 Body weight 52.62 kg No Generic Provider [facility] 02-12-2023 17:32-0400 Body height 160 cm No Pcp Required [facility] 02-12-2023 17:32-0400 Body temperature 97.34 [degF] No Pcp Required [facility] 02-12-2023 17:32-0400 Body weight 56.8 kg No Pcp Required [facility] 02-12-2023 17:32-0400 Diastolic blood pressure 82 mm[Hg] No Pcp Required [facility] 02-12-2023 17:32-0400 Heart rate 92 /min No Pcp Required [facility] 02-12-2023 17:32-0400 Respiratory rate 18 /min No Pcp Required [facility] 02-12-2023 17:32-0400 SaO2% (BldA) [Mass fraction] 98 % No Pcp Required [facility] 02-12-2023 17:32-0400 Systolic blood pressure 124 mm[Hg] No Pcp Required [facility] 11-29-2022 14:52-0400 Body mass index (BMI) [Percentile] Per age and sex 75.51 % Pablo Hernandez MD Work Phone: [employer] 11-29-2022 14:52-0400 Body mass index (BMI) [Ratio] 23.91 kg/m2 Pablo Hernandez MD Work Phone: [employer] [facility] 11-29-2022 14:52-0400 Body temperature 98.6 [degF] Pablo Hernandez MD Work Phone: [facility] 11-29-2022 14:52-0400 Body weight 61.24 kg Pablo Hernandez MD Work Phone: [employer] 11-29-2022 14:52-0400 Diastolic blood pressure 57 mm[Hg] Pablo Hernandez MD Work Phone: [employer] 11-29-2022 14:52-0400 Heart rate 134 /min Pablo Hernandez MD Work Phone: [employer] 11-29-2022 14:52-0400 Respiratory rate 16 /min Pablo Hernandez MD Work Phone: [employer] 11-29-2022 14:52-0400 SaO2% (BldA) [Mass fraction] 99 % Pablo Hernandez MD Work Phone: [employer] 11-29-2022 14:52-0400 Systolic blood pressure 110 mm[Hg] Pablo Hernandez MD Work Phone: [employer] 11-28-2022 09:30-0400 Body height 160 cm Pablo Hernandez MD Work Phone: [employer] 05-23-2022 18:07-0500 Body height 160 cm Aj Jurado MD [facility] [employer] 05-23-2022 18:07-0500 Body mass index (BMI) [Percentile] Per age and sex 44.94 % Aj Jurado MD [employer] 05-23-2022 18:07-0500 Body mass index (BMI) [Ratio] 20.73 kg/m2 Aj Jurado [facility] [employer] 05-23-2022 18:07-0500 Body weight 53.07 kg Aj Jurado MD [facility] [employer] 05-23-2022 18:00-0500 Body temperature 98.29 [degF] Aj Jurado MD [facility] [employer] 05-23-2022 16:07-0500 Diastolic blood pressure 65 mm[Hg] Aj Jurado MD [facility] [employer] 05-23-2022 16:07-0500 Heart rate 108 /min Aj Jurado MD [facility] [employer] 05-23-2022 16:07-0500 Respiratory rate 16 /min Aj Jurado MD [facility] [employer] 05-23-2022 16:07-0500 SaO2% (BldA) [Mass fraction] 98 % Aj Jurado MD [facility] [employer] 05-23-2022 16:07-0500 Systolic blood pressure 122 mm[Hg] Aj Jurado MD [facility] [employer] 10-31-2021 19:48-0400 Body temperature 98.01 [degF] Sulaiman Ortiz MD Work Phone: [facility] [employer] 10-31-2021 19:48-0400 Body weight 54.43 kg Sulaiman Ortiz MD Work Phone: [facility] [employer] 10-31-2021 19:48-0400 Diastolic blood pressure 79 mm[Hg] Sulaiman Ortiz MD Work Phone: [facility] [employer] 10-31-2021 19:48-0400 Heart rate 116 /min Sulaiman Ortiz MD Work Phone: [facility] [employer] 10-31-2021 19:48-0400 Respiratory rate 16 /min Sulaiman Ortiz MD Work Phone: [facility] [employer] 10-31-2021 19:48-0400 SaO2% (BldA) [Mass fraction] 99 % Sulaiman Ortiz MD Work Phone: [facility] 10-31-2021 19:48-0400 Systolic blood pressure 126 mm[Hg] Sulaiman Ortiz MD Work Phone: [facility] 10-03-2021 15:36-0400 Blood Pressure Location Karli COURTNEYILLER [facility] [place] 10-03-2021 15:36-0400 Diastolic blood pressure 58 mm[Hg] Karli SANTIAGONAMILLER [facility] [place] 10-03-2021 15:36-0400 Heart rate 106 /min Karli COURTNEYILLER [facility] [place] 10-03-2021 15:36-0400 SaO2% (BldA) [Mass fraction] 98 % Karli COURTNEYILLER [facility] [place] 10-03-2021 15:36-0400 Systolic blood pressure 118 mm[Hg] Karli COURTNEYILLER [facility] [place] 08-19-2020 11:29-0400 Body weight 68.04 kg [facility] 08-19-2020 11:29-0400 Diastolic blood pressure 78 mm[Hg] [facility] 08-19-2020 11:29-0400 Systolic blood pressure 148 mm[Hg] Meagan [facility] 06-15-2019 16:02-0500 Body height 160 cm Sulaiman Ortiz MD Work Phone: [facility] Work Phone: 06-15-2019 16:02-0500 Body mass index (BMI) [Ratio] 21.61 kg/m2 Sulaiman Ortiz MD Work Phone: [employer] Work Phone: 06-15-2019 16:02-0500 Body temperature 98.71 [degF] Sulaiman Ortiz MD Work Phone: [employer] Work Phone: 06-15-2019 16:02-0500 Body weight 55.34 kg Sulaiman Ortiz MD Work Phone: [employer] Work Phone: 06-15-2019 16:02-0500 Diastolic blood pressure 60 mm[Hg] Sulaiman Ortiz MD Work Phone: [employer] Work Phone: 06-15-2019 16:02-0500 Heart rate 78 /min Sulaiman Ortiz MD Work Phone: [employer] Work Phone: 06-15-2019 16:02-0500 Respiratory rate 20 /min Sulaiman Ortiz MD Work Phone: [employer] Work Phone: 06-15-2019 16:02-0500 SaO2% (BldA) [Mass fraction] 100 % Sulaiman Ortiz MD Work Phone: [employer] Work Phone: 06-15-2019 16:02-0500 Systolic blood pressure 111 mm[Hg] Sulaiman Ortiz MD Work Phone: [employer] Work Phone: Encounters Encounter Date Encounter Type Care Provider Facility Start: 11-25-2024 End: 11-25-2024 Clinisync Result Encounter Ross Sujey DO Work Phone: [facility] External [facility] Unsolicited Start: 11-25-2024 End: 11-25-2024 Clinisync Result Encounter Ross Sujey DO Work Phone: [facility] External [facility] Unsolicited Start: 11-05-2024 End: 11-05-2024 Office outpatient visit 15 minutes Ross Sujey DO Work Phone: [facility] Comment on above: Pre-op examination; Pelvic pain; Right ovarian cyst Start: 11-05-2024 End: 11-05-2024 Preprocedural examination done Ross Sujey DO Work Phone: [facility] Start: 11-05-2024 End: 11-05-2024 ambulatory ROSS SUJEY Not Available Start: 11-03-2024 End: 11-03-2024 ambulatory GRIFFIN DIOP Not Available Start: 09-28-2024 End: 09-28-2024 Patient encounter procedure Ross Sujey DO Work Phone: [facility] Comment on above: Right ovarian cyst ( Primary Dx); Encounter for IUD removal; Pelvic pain in female Start: 09-28-2024 End: 09-28-2024 ambulatory ROSS SUJEY Not Available Start: 08-28-2024 End: 08-28-2024 Emergency department patient visit [facility] Emergency Department Start: 04-16-2024 End: 04-16-2024 ambulatory Papa E Toward Facility: [place] Start: 04-16-2024 End: 04-16-2024 Patient encounter procedure Papa E Toward [facility] [place] Start: 04-14-2024 End: 04-14-2024 ambulatory Papa E Toward Facility: [place] Start: 04-14-2024 End: 04-14-2024 Patient encounter procedure Papa E Toward [facility] [place] Start: 11-25-2023 End: 11-25-2023 ambulatory ROSS SUJEY Not Available Start: 11-22-2023 End: 11-22-2023 ambulatory ROSS HOGAN [facility] Start: 10-18-2023 End: 10-18-2023 Patient encounter procedure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 Negative. OBJECTIVE Objective: Physical Exam Constitutional: Appearance: Normal appearance. She is well-developed. Cardiovascular: Rate and Rhythm: Normal rate and regular rhythm. Pulmonary: Effort: Pulmonary effort is normal. Breath sounds: Normal breath sounds. Abdominal: General: Bowel sounds are normal. There is no distension. Palpations: Abdomen is soft. Tenderness: There is no abdominal tenderness. There is no guarding or rebound. Musculoskeletal: General: No swelling. Normal range of motion. Right lower leg: No edema. Left lower leg: No edema. Neurological: Mental Status: She is alert and oriented to person, place, and time. Skin: General: Skin is warm and dry. Psychiatric: Mood and Affect: Mood normal. Behavior: Behavior normal. Vitals and nursing note reviewed. Exam conducted with a wood flour miller present. Vitals: Estimated body mass index is 19.18 kg/m as calculated from the following: Height as of 11/25/23: 5' 3 . Weight as of this encounter: 108 lb 4 oz. BP: 112/70 Patient's last menstrual period was 11/05/2024. ASSESSMENT & PLAN ICD-10-CM 1. Pre-op examination Z01.818 2. Pelvic pain R10.2 3. Right ovarian cyst N83.201 4. Encounter for weight management Z76.89 Pre Op: Patient is doing well but has complaints of pelvic pain, right ovarian cyst a. I have discussed conservative management vs. surgical management with the patient in detail and patient desires surgical management at this time. Patient will undergo Da Raymon assisted Diagnostic Laparoscopy, possible YEMI, possible FOE, possible BSO on 12/04/24. Surgical consents were signed, mmc was reviewed, and patient is to proceed to [facility] OR. Follow Up: Patient is to follow up between 1-2 weeks post operative to assess proper healing and recovery from procedure. Documented by Lilia Flynn LPN on behalf of: Ross Rm DO documented in this encounter [facility] 09-28-2024 History of Present illness Narrative Associated Order(s): IUD Removal Post-Procedure Diagnose(s): Encounter for IUD removal; Right ovarian cyst; Pelvic pain in female Reason for Appointment: Patient ID: Concha Alarcon is a 18 y.o. female who presents for IUD Removal / Discuss Tubal Patient presents today for a IUD Removal appointment. MEDICATIONS Current Outpatient Medications Medication Instructions Acetaminophen (MIDOL PO) Oral ibuprofen 600 MG tablet 1 tablet, Oral, Every 6 hours PRN ALLERGIES No Known Allergies SURGICAL HISTORY Past Surgical History: Procedure Laterality Date TONSILLECTOMY REVIEW OF SYSTEMS Review of Systems: Review of Systems Genitourinary: Positive for pelvic pain. OBJECTIVE Objective: Physical Exam Constitutional: Appearance: Normal appearance. She is well-developed. Genitourinary: Vulva normal. Cardiovascular: Rate and Rhythm: Normal rate and regular rhythm. Pulmonary: Effort: Pulmonary effort is normal. Breath sounds: Normal breath sounds. Abdominal: General: Bowel sounds are normal. There is no distension. Palpations: Abdomen is soft. Tenderness: There is no abdominal tenderness. There is no guarding or rebound. Musculoskeletal: General: No swelling. Normal range of motion. Right lower leg: No edema. Left lower leg: No edema. Neurological: Mental Status: She is alert and oriented to person, place, and time. Skin: General: Skin is warm and dry. Psychiatric: Mood and Affect: Mood normal. Behavior: Behavior normal. Vitals and nursing note reviewed. Exam conducted with a wood flour miller present. Vitals: Estimated body mass index is 19.04 kg/m as calculated from the following: Height as of 24: 5' 3 . Weight as of this encounter: 107 lb 8 oz. BP: 110/80 No LMP recorded. Patient has had an implant. ASSESSMENT & PLAN Assessment/Plan Encounter Diagnosis: ICD-10-CM 1. Right ovarian cyst N83.201 IUD Removal 2. Encounter for IUD removal Z30.432 US Pelvis w/ TV IUD Removal 3. Pelvic pain in female R10.2 IUD Removal IUD Removal Date/Time: 09/28/2024 3:41 PM Performed by: Ross Rm DO Authorized by: Ross Rm DO Consent: Consent obtained: Written Consent given by: Patient Procedure risks and benefits discussed: yes Patient questions answered: yes Patient agrees, verbalizes understanding, and wants to proceed: yes Educational handouts given: no Instructions and paperwork completed: yes Procedure: Removed with no complications: yes Removal due to mechanical complications of IUD: no Removal due to infection and inflammatory reaction: no Return OB: Patient presents today for a routine obstetrics appointment. Patient is currently Unknown . Patient states she is doing well but has complaints of being tired due to current . Patient has verbalizes frequent movement. labor precautions was discussed/given and patient was instructed to perform kick counts three times a day. Orders Placed This Encounter Procedures IUD Removal US Pelvis w/ TV Follow Up: IUD Removal: Patient presents today for removal of IUD. Written consent was obtained and patient was placed in dorsal lithotomy position with feet in stirrups. A sterile speculum was inserted into the vagina and the cervix was visualized. The IUD strings were grasped gently with forceps and the IUD was removed in its entirety without difficulty. The IUD was shown to the patient then properly discarded. Follow Up: Patient presents to [facility] for removal of IUD and to discuss transvaginal US of the pelvis from 08/28/24. Reviewed transvaginal US findings today with noted complex 4.86 cm cystic hypoechoic mass with the right adnexal region. Plan is to repeat the Ultrasound in 2 weeks and move forward with Diagnostic Lap. Scheduled on 12/04/24 Documented by Griffin Diop NP on behalf of: Ross Rm DO documented in this encounter [facility] 08-28-2024 Emergency department Note Went to room to revital and discharge patient. Pt and family gone at this time. [facility] 08-28-2024 Emergency department Note Went to room to revital and discharge patient. Pt and family gone at this time. Report given to ISRAEL Bernstein. documented in this encounter [facility] 08-28-2024 Emergency department Note Report given to ISRAEL Bernstein. [facility] 10-18-2023 History of Present illness Narrative [facility]HA NOTE: Name: Concha Alarcon, 17 y.o. CSN:[id number] PCP: No Assigned PCP Generic Provider, ALL: No Known Allergies History: Chief Complaint: Abdominal Pain (Acute pain in mid left abdominal region with radiation to the right side, pt states that she has a pain sensation that travels to her chest causing issues with breathing.) Encounter Date: 10/18/2023 13:55 HPI: The history was obtained from the patient. Concha is a 17 y.o. female, who presents with a chief complaint of Abdominal Pain (Acute pain in mid left abdominal region with radiation to the right side, pt states that she has a pain sensation that travels to her chest causing issues with breathing.) The patient has been experiencing abdominal pain predominantly in LLQ that radiates to RLQ and into chest x 3 weeks. Pain makes it difficult for her to take a deep breath. Pain is exacerbated by rotation of trunk. Pain has gotten worse over past 2 weeks. Patient feels nauseous and like he is going to throw up or have syncopal episode, but it doesn't happen. Also been belching often with bad smell, which is abnormal for her. Associated bloating as well. Pain is a 2/10 currently, but a 6-7/10 at its worst. Pain comes and goes randomly, so association with eating, bowel movements, or urination. Patient has taken hot baths to help with pain, which helped in the beginning, but not as it has gotten worse in last two weeks. Patient is currently having cycle, which she expresses is abnormal for her because she is on depo shot, which she last received 08/2023, and has not had cycles on it before. Prior prior vaginal deliveries without complications. Had extreme cramps with cycles before her first , but this pain feels different and more severe. Denies fever, emesis, diarrhea, or constipation. PMHx: No past medical history on file. Current Outpatient Medications Medication Sig Dispense Refill medroxyPROGESTERone, 3-month, (Depo-subQ provera 104) 104 mg/0.65 mL injection Inject 0.65 mL (104 mg) under the skin every 3 months. naproxen (Naprosyn) 375 mg tablet Take 1 tablet (375 mg) by mouth 2 times daily (morning and late afternoon) for 10 days. 20 tablet 0 No current facility-administered medications for this visit. PMSx: No past surgical history on file. Fam Hx: No family history on file. SOC. Hx: Social History Socioeconomic History Marital status: Single Spouse name: Not on file Number of children: Not on file Years of education: Not on file Highest education level: Not on file Occupational History Not on file Tobacco Use Smoking status: Not on file Smokeless tobacco: Not on file Substance and Sexual Activity Alcohol use: Not on file Drug use: Not on file Sexual activity: Not on file Other Topics Concern Not on file Social History Narrative Not on file Social Determinants of Health Financial Resource Strain: Not on file Food Insecurity: Not on file Transportation Needs: Not on file Physical Activity: Not on file Stress: Not on file Social Connections: Not on file Intimate Partner Violence: Not on file Housing Stability: Not on file Vitals: 10/18/23 1322 BP: 108/69 Pulse: (!) 111 Resp: 16 Temp: 36.6 C (97.9 F) SpO2: 97% 54.4 kg (120 lb) Physical Exam Constitutional: Appearance: Normal appearance. Comments: Bent over at waist, clutching abdomen in chair. HENT: Head: Normocephalic and atraumatic. Eyes: Extraocular Movements: Extraocular movements intact. Pupils: Pupils are equal, round, and reactive to light. Cardiovascular: Rate and Rhythm: Tachycardia present. Abdominal: General: There is no distension. Palpations: There is no hepatomegaly or splenomegaly. Tenderness: There is abdominal tenderness in the suprapubic area and left lower quadrant. There is no right CVA tenderness, left CVA tenderness or rebound. Negative signs include Rovsing's sign and obturator sign. Skin: General: Skin is warm. Findings: No rash. Neurological: General: No focal deficit present. Mental Status: She is alert and oriented to person, place, and time. Psychiatric: Attention and Perception: Attention normal. Mood and Affect: Mood normal. Behavior: Behavior normal. Behavior is cooperative. LABORATORY @ RADIOLOGICAL IMAGING (if done): Results for orders placed or performed in visit on 10/18/23 (from the past 24 hour(s)) POCT UA (nonautomated w/o microscopy) manually resulted Result Value Ref Range POC Color, Urine Yellow Straw, Yellow, Light-Yellow POC Appearance, Urine Clear Clear POC Glucose, Urine NEGATIVE NEGATIVE mg/dl POC Bilirubin, Urine SMALL (1+) (A) NEGATIVE POC Ketones, Urine 80 (3+) (A) NEGATIVE mg/dl POC Specific [place], Urine 1.025 1.005 - 1.035 POC Blood, Urine LARGE (3+) (A) NEGATIVE POC PH, Urine 5.5 No Reference Range Established PH POC Protein, Urine 100 (2+) (A) NEGATIVE, 30 (1+) mg/dl POC Urobilinogen, Urine 0.2 0.2, 1.0 EU/DL Poc Nitrite, Urine NEGATIVE NEGATIVE POC Leukocytes, Urine NEGATIVE NEGATIVE PT IS CURRENTLY MENSTRUATING THIS MIGHT EXPLAIN THE NOTED MICROSCOPIC HEMATURIA. ____ I did personally review Concha's past medical history, surgical history, social history, as well as family history (when relevant). In this case, I also oversaw the her drug management by reviewing her medication list, allergy list, as well as the medications that I prescribed during the UC course and/or recommended as an out-patient (including possible OTC medications such as acetaminophen, NSAIDs , etc). After reviewing the items above, I did look at previous medical documentation, such as recent hospitalizations, office visits, and/or recent consultations with PCP/specialist. SDOH: Another factor that I considered in Concha's care was her Social Determinants of Health (SDOH). During this UC encounter, she did not have social determinants of health. Those SDOH influencing Concha's care are: none UC COURSE/MEDICAL DECISION MAKING: Concha is a 17 y.o., who presents with a working diagnosis of 1. Pelvic pain with a differential to include: Appendicitis less likely because negative rovsing's sing, obturator sign, and rebound tenderness on exam. Additionally, pain predominantly in LLQ. Cholelithiasis or cholecystitis less likely because pain does not have relation to food intake and no pain in RUQ. Ovarian cyst likely due to left-sided suprapubic pain on exam and pain with trunk rotation. Discussed with patient getting a pelvic ultrasound, patient accepts plan. Acute cystitis less likely because absence of nitrites or leukocytes on urinalysis. Ectopic or intrauterine less likely due to negative HCG test today and fact that patient is currently having a cycle Pelvic pain Naproxen 375 mg sent to pharmacy Patient will get pelvic US at [place] [facility] Call or return to office with any questions SHE HAS AN APPT. WITH [employer] DEVELOPER THIS COMING SATURDAY AT [facility] TO DISCUSS STERILIZATION Note initiated by: CLAUDIA Roberts, [facility] Supervised by Dede Lovett PA-C Advanced Practice Provider [facility] I was present with the PA student who participated in the documentation of this note. I have personally seen and re-examined the patient and performed the medical decision-making components (assessment and plan of care). I have reviewed the PA student documentation and verified the findings in the note as written with additions or exceptions as stated in the body of this note. Dede Lovett PA-C documented in this encounter [facility] Work Phone: 11-29-2022 Miscellaneous Notes Patient's respirations are unlabored and symmetrical. Fundus remains firm at U/3 with scant amount of rubra. Pain has been controlled through motrin. Voiding without difficulty. Bonding with infant appropriately. Understands discharge education and encourage to call with questions or concerns. Patient ambulates off the unit accompanied by family. Discharge AVS, and booklet, and AWHONN Post- Warning signs reviewed with mother at this time. Encouraged mother to hang AWHONN paper on fridge to remind her of symptoms to report. Educated mother on activity level, perineum care, new mediations, and depression. Mother verbalizes understanding. Encouraged to attend 6 week follow up. Denies having any questions at this time. Problem: Patient Care Overview Goal: Plan of Care Review Outcome: Adequate for Discharge Goal: Individualization & Mutuality Outcome: Adequate for Discharge Goal: Discharge Needs Assessment Outcome: Adequate for Discharge Goal: Interdisciplinary Rounds/Family Conf Outcome: Adequate for Discharge Problem: Skin Integrity Impairment, Risk/Actual (Adult) Goal: Identify Related Risk Factors and Signs and Symptoms Description: Related risk factors and signs and symptoms are identified upon initiation of Human Response Clinical Practice Guideline (CPG) Outcome: Adequate for Discharge Goal: Skin Integrity/Wound Healing Description: Patient will demonstrate the desired outcomes by discharge/transition of care. Outcome: Adequate for Discharge Problem: () Goal: Identify Related Risk Factors and Signs and Symptoms Description: Related risk factors and signs and symptoms are identified upon initiation of Human Response Clinical Practice Guideline (CPG) Outcome: Adequate for Discharge Goal: Effective Description: Patient will demonstrate the desired outcomes by discharge/transition of care. Outcome: Adequate for Discharge Problem: (Adult,Obstetrics,Pediatric) Goal: Signs and Symptoms of Listed Potential Problems Will be Absent, Minimized or Managed () Description: Signs and symptoms of listed potential problems will be absent, minimized or managed by discharge/transition of care (reference (Adult,Obstetrics,Pediatric) CPG). Outcome: Adequate for Discharge Sleeping, swaddled with Paternal mother Pt standing at bedside Pt stated Standing feels better No pain with position change shown by my nurse Baby eating well Diapers with every feed Prior nursing experience Milk dried up at 6 wks with first child no nipple damage Education: Skin to skin, normal feeding patterns,breast prep, therapeutic breast massage, feed on demand 8-12x's/24 hours,elimination monitoring, packet, pump use/cleaning/frequency, breastmilk storage, handling, nipple care, [facility] Hotline, [employer] support group, formula preparation, cronobacter, positioning, paced bottle feeding, pacifier use,diet, deep latch/breast shaping, medications, hand expression PLAN: feed on demand, monitor eliminations, skin to skin Pt verbalized understanding [place] returned to mothers room and ID bands verified by this RN. Mother places infant to breast. Fresh Ice water and heat pack provided for comfort while feeding. Patient denies medication to relieve abdominal cramping at this time. POC continued. Mothers pain controlled, minimal assistance with BF Problem: Patient Care Overview Goal: Plan of Care Review Outcome: Progressing Toward Goal Goal: Individualization & Mutuality Outcome: Progressing Toward Goal Goal: Discharge Needs Assessment Outcome: Progressing Toward Goal Goal: Interdisciplinary Rounds/Family Conf Outcome: Progressing Toward Goal Problem: Skin Integrity Impairment, Risk/Actual (Adult) Goal: Identify Related Risk Factors and Signs and Symptoms Description: Related risk factors and signs and symptoms are identified upon initiation of Human Response Clinical Practice Guideline (CPG) Outcome: Progressing Toward Goal Goal: Skin Integrity/Wound Healing Description: Patient will demonstrate the desired outcomes by discharge/transition of care. Outcome: Progressing Toward Goal Problem: () Goal: Identify Related Risk Factors and Signs and Symptoms Description: Related risk factors and signs and symptoms are identified upon initiation of Human Response Clinical Practice Guideline (CPG) Outcome: Progressing Toward Goal Goal: Effective Description: Patient will demonstrate the desired outcomes by discharge/transition of care. Outcome: Progressing Toward Goal Problem: (Adult,Obstetrics,Pediatric) Goal: Signs and Symptoms of Listed Potential Problems Will be Absent, Minimized or Managed () Description: Signs and symptoms of listed potential problems will be absent, minimized or managed by discharge/transition of care (reference (Adult,Obstetrics,Pediatric) CPG). Outcome: Progressing Toward Goal Summary: Consult This note was copied from a baby's chart. Data: EGA 37 and 6 date/type 11/28/2022 12:16 PM by Vaginal, Spontaneous Age 0 days weight 3.325 kg (7 lb 5.3 oz) % Weight loss 0% Mother Data: 2nd baby Delivery day spontaneous vaginal delivery 17 years old Visit 1450 : Mother states: -she breast fed for 2 months with first baby and then had supply issues -has no current questions or concerns and states that baby breastfed well for the first feed. In discussing with mother common reasons why some moms may experience low supply between 2-3 months post mother reveled that she was on hormonal control as well as Abilify, both of which can negatively affect milk supply. Mother denied needing assistance with feeding infant LC did not see feed at this time Education: Cue based feeds/feed on demand Normal new born feeding patterns Supply and demand Pacifier use Pumping Feed plan services Diet How to tell if baby is getting enough to eat Cluster feeding Lactogenesis stages Medications Breast/nipple care Consult 1600: Mother states that is going well but she's not sure he's getting any milk because he keeps waking up every hour or two to eat. reviewed new born feeding patterns and with mother's permission, taught hand expression to show mother her milk. Mother then requested a hand pump. [facility] provided hand pump to mother and LC reviewed use. Reviewed new born belly size and how to tell if your baby is getting enough to eat. I certify that this patient requires inpatient services at this time. I anticipate the expected length of stay will include at least two midnights. Inpatient services are due to the following medical concerns active labor. Plans for post hospitalization care will be discharge to home. Dr. Jones notified of patient arrival to floor. Informed of SVE, EFM tracing, and UC pattern. New orders received. Patient arrived to unit accompanied by security, significant other, and mother. CC of lost mucus plug and contractions. Oriented to room and placed on monitors. Triage assessment completed. documented in this encounter [facility] 11-29-2022 Nurse Note Patient's respirations are unlabored and symmetrical. Fundus remains firm at U/3 with scant amount of rubra. Pain has been controlled through motrin. Voiding without difficulty. Bonding with infant appropriately. Understands discharge education and encourage to call with questions or concerns. Patient ambulates off the unit accompanied by family. [facility] 11-29-2022 Nurse Note Discharge AVS, and booklet, and AWHONN Post- Warning signs reviewed with mother at this time. Encouraged mother to hang AWHONN paper on fridge to remind her of symptoms to report. Educated mother on activity level, perineum care, new mediations, and depression. Mother verbalizes understanding. Encouraged to attend 6 week follow up. Denies having any questions at this time. [facility] 11-29-2022 Plan of care note Problem: Patient Care Overview Goal: Plan of Care Review Outcome: Adequate for Discharge Goal: Individualization & Mutuality Outcome: Adequate for Discharge Goal: Discharge Needs Assessment Outcome: Adequate for Discharge Goal: Interdisciplinary Rounds/Family Conf Outcome: Adequate for Discharge Problem: Skin Integrity Impairment, Risk/Actual (Adult) Goal: Identify Related Risk Factors and Signs and Symptoms Description: Related risk factors and signs and symptoms are identified upon initiation of Human Response Clinical Practice Guideline (CPG) Outcome: Adequate for Discharge Goal: Skin Integrity/Wound Healing Description: Patient will demonstrate the desired outcomes by discharge/transition of care. Outcome: Adequate for Discharge Problem: () Goal: Identify Related Risk Factors and Signs and Symptoms Description: Related risk factors and signs and symptoms are identified upon initiation of Human Response Clinical Practice Guideline (CPG) Outcome: Adequate for Discharge Goal: Effective Description: Patient will demonstrate the desired outcomes by discharge/transition of care. Outcome: Adequate for Discharge Problem: (Adult,Obstetrics,Pediatric) Goal: Signs and Symptoms of Listed Potential Problems Will be Absent, Minimized or Managed () Description: Signs and symptoms of listed potential problems will be absent, minimized or managed by discharge/transition of care (reference (Adult,Obstetrics,Pediatric) CPG). Outcome: Adequate for Discharge [facility] 11-29-2022 History of Present illness Narrative PPD # 1 S: no C/O, doing well. Pain controlled. Tolerating regular diet. Ambulating. Passing flatus. Desires to go home today O: Blood pressure 115/66, pulse 121, temperature 98 F (36.7 C), temperature source Oral, resp. rate 16, height 1.6 m (5' 3 ), weight 61.2 kg (135 lb), SpO2 98 %, unknown if currently . Abd soft Fundus Firm CBC Lab Results Component Value Date WBC 17.5 (H) 11/29/2022 HGB 8.8 (L) 11/29/2022 HCT 26.1 (L) 11/29/2022 PLATELET 210 11/29/2022 MCV 83.5 11/29/2022 EDIF Lab Results Component Value Date RBCDISTRIBU 15.1 (H) 11/29/2022 EOSINOPHILS 0.9 11/28/2022 EOSINOPHILS 0.1 11/28/2022 BASOPHILS 0.4 11/28/2022 BASOPHILS 0.1 11/28/2022 LYMPHOCYTABS 2.7 11/28/2022 PLATELET 210 11/29/2022 MPV 8.8 11/29/2022 A/P:Anticipate discharge today Encourage mother infant bonding Reviewed signs of DVT documented in this encounter [facility] 11-29-2022 Obstetrics Note Sleeping, swaddled with Paternal mother Pt standing at bedside Pt stated Standing feels better No pain with position change shown by my nurse Baby eating well Diapers with every feed Prior nursing experience Milk dried up at 6 wks with first child no nipple damage Education: Skin to skin, normal feeding patterns,breast prep, therapeutic breast massage, feed on demand 8-12x's/24 hours,elimination monitoring, packet, pump use/cleaning/frequency, breastmilk storage, handling, nipple care, [facility] Hotline, [email or web address] support group, formula preparation, cronobacter, positioning, paced bottle feeding, pacifier use,diet, deep latch/breast shaping, medications, hand expression PLAN: feed on demand, monitor eliminations, skin to skin Pt verbalized understanding [facility] 11-29-2022 Nurse Note [place] returned to mothers room and ID bands verified by this RN. Mother places to breast. Fresh Ice water and heat pack provided for comfort while feeding. Patient denies medication to relieve abdominal cramping at this time. [facility] 11-28-2022 Plan of care note POC continued. Mothers pain controlled, minimal assistance with BF Problem: Patient Care Overview Goal: Plan of Care Review Outcome: Progressing Toward Goal Goal: Individualization & Mutuality Outcome: Progressing Toward Goal Goal: Discharge Needs Assessment Outcome: Progressing Toward Goal Goal: Interdisciplinary Rounds/Family Conf Outcome: Progressing Toward Goal Problem: Skin Integrity Impairment, Risk/Actual (Adult) Goal: Identify Related Risk Factors and Signs and Symptoms Description: Related risk factors and signs and symptoms are identified upon initiation of Human Response Clinical Practice Guideline (CPG) Outcome: Progressing Toward Goal Goal: Skin Integrity/Wound Healing Description: Patient will demonstrate the desired outcomes by discharge/transition of care. Outcome: Progressing Toward Goal Problem: (Infant) Goal: Identify Related Risk Factors and Signs and Symptoms Description: Related risk factors and signs and symptoms are identified upon initiation of Human Response Clinical Practice Guideline (CPG) Outcome: Progressing Toward Goal Goal: Effective Description: Patient will demonstrate the desired outcomes by discharge/transition of care. Outcome: Progressing Toward Goal Problem: (Adult,Obstetrics,Pediatric) Goal: Signs and Symptoms of Listed Potential Problems Will be Absent, Minimized or Managed () Description: Signs and symptoms of listed potential problems will be absent, minimized or managed by discharge/transition of care (reference (Adult,Obstetrics,Pediatric) CPG). Outcome: Progressing Toward Goal [facility] 11-28-2022 Obstetrics Note Summary: Lact ation Consult This note was copied from a baby's chart. Infant Data: EGA 37 and 6 date/type 11/28/2022 12:16 PM by Vaginal, Spontaneous Age 0 days weight 3.325 kg (7 lb 5.3 oz) % Weight loss 0% Mother Data: 2nd baby Delivery day spontaneous vaginal delivery 17 years old Visit 1450 : Mother states: -she breast fed for 2 months with first baby and then had supply issues -has no current questions or concerns and states that baby breastfed well for the first feed. In discussing with mother common reasons why some moms may experience low supply between 2-3 months post mother reveled that she was on hormonal control as well as Abilify, both of which can negatively affect milk supply. Mother denied needing assistance with feeding infant LC did not see feed at this time Education: Cue based feeds/feed on demand Normal new born feeding patterns Supply and demand Pacifier use Pumping Feed plan services Diet How to tell if baby is getting enough to eat Cluster feeding Lactogenesis stages Medications Breast/nipple care Consult 1600: Mother states that is going well but she's not sure he's getting any milk because he keeps waking up every hour or two to eat. reviewed new born feeding patterns and with mother's permission, taught hand expression to show mother her milk. Mother then requested a hand pump. [facility] provided hand pump to mother and reviewed use. Reviewed new born belly size and how to tell if your baby is getting enough to eat. [facility] 11-28-2022 Progress note Formatting of t his note might be different from the original. I certify that this patient requires inpatient services at this time. I anticipate the expected length of stay will include at least two midnights. Inpatient services are due to the following medical concerns active labor. Plans for post hospitalization care will be discharge to home. T [facility] 11-28-2022 History and physical note ADMISSION H&P - Labor Facility Name: [facility] Name: Concha Alarcon Date of : 2005 CSN: [id number] Attending Physician: Pablo Hernandez MD HISTORY OF PRESENT ILLNESS: Concha Alarcon is a 17 y.o. female with CUCA 12/13/2022, by Other Basis . She is here in active labor. Currently 37w6d gestation who is being admitted for labor management. Her current obstetrical history is significant for no issues. Patient reports contractions since 0400. Movement: +FM. When she was admitted she was 6.5 cm dilated per RN. She desires epidural for pain relief. Her has been uncomplicated. Her past history is significant for no issues. The patient began care with Zoila. She has no headache, no visual changes, no RUQ pain. She denies shortness of breath or chest pain. She denies any new onset of swelling or changes in swelling. She has no pain in the backs of her legs. Past Medical History: Diagnosis Date Asthma Depression ROSI (obstructive sleep apnea) Past Surgical History: Procedure Laterality Date TONSILLECTOMY ADENOIDECTOMY 11/03/2009 Social History Socioeconomic History Marital status: Single Spouse name: Not on file Number of children: 1 Years of education: Not on file Highest education level: Not on file Occupational History Not on file Tobacco Use Smoking status: Never Smokeless tobacco: Never Vaping Use Vaping Use: Every day Start date: 11/06/2018 Substance and Sexual Activity Alcohol use: Never Drug use: Never Sexual activity: Yes Other Topics Concern Service No Blood Transfusions No Caffeine Concern No Occupational Exposure No Hobby Hazards No Sleep Concern Yes Stress Concern Yes Comment: mother is a stressor. Weight Concern No Special Diet No Back Care No Exercise Yes Bike Helmet Yes Seat Belt Yes Domestic Violence No Social History Narrative Not on file Social Determinants of Health Financial Resource Strain: Not on file Food Insecurity: Not on file Transportation Needs: Not on file Physical Activity: Not on file Stress: Not on file Social Connections: Not on file Intimate Partner Violence: Not on file Housing Stability: Not on file (Not in an outpatient encounter) No Known Allergies ROS: Constitutional: Well appearing, no fevers/chills. No lightheadedness or dizziness. Cardiovascular: No chest pain or palpitations. Respiratory: No shortness of breath, orthopnea, or dyspnea on exertion. Gastrointestinal: No nausea, vomiting, abdominal pain. OB: AROM clear Contractions. No nocturia, dysuria, or burning sensation on urination. Musculoskeletal: No joint pains, or myalgias. No weakness or falls. Neurological: No numbness or tingling. No paresthesias. Psychiatric: No mood swings, depression, anxiety. OBJECTIVE: BP 130/53 Pulse 91 Resp 16 Ht 1.6 m (5' 3 ) Wt 61.2 kg (135 lb) SpO2 97% BMI 23.91 kg/m Smoking Status Never Body mass index is 23.91 kg/m . GENERAL APPEARANCE: The patient is alert and oriented x3. HEENT: Normocephalic. Well-hydrated mucosa. VITAL SIGNS: Vital signs have been reviewed and are currently stable. HEART: Heart rate is regular without murmur. No peripheral edema. LUNGS: Clear to auscultation. Easy respirations. ABDOMEN: Is soft, non-tender, and gravid with a single fetus in a cephalic presentation by Natanael's Maneuver. HEART TONES: heart tones are a category 1 tracing. MEMBRANES: Intact GBS STATUS: unknown ASSESSMENT: Concha Alarcon is a 17 y.o. at 37w6d gestation Active phase labor. Intrauterine at term in active labor. Category I heart tones. Patient is in active labor Risks, benefits, alternatives and possible complications have been discussed in detail with the patient. All patient questions answered. PLAN: Admit to Labor and Delivery for Labor management Epidural for pain management AROM clear We will anticipate normal spontaneous vaginal delivery. Pablo Hernandez MD 11/28/2022 11:34 AM [facility] 11-28-2022 History and physical note ADMISSION H&P - Labor Facility Name: [facility] Name: Concha Alarcon Date of : 2005 CSN: [id number] Attending Physician: Pablo Hernandez MD HISTORY OF PRESENT ILLNESS: Concha Alarcon is a 17 y.o. female with CUCA 12/13/2022, by Other Basis . She is here in active labor. Currently 37w6d gestation who is being admitted for labor management. Her current obstetrical history is significant for no issues. Patient reports contractions since 0400. Movement: +FM. When she was admitted she was 6.5 cm dilated per RN. She desires epidural for pain relief. Her has been uncomplicated. Her past history is significant for no issues. The patient began care with Zoila. She has no headache, no visual changes, no RUQ pain. She denies shortness of breath or chest pain. She denies any new onset of swelling or changes in swelling. She has no pain in the backs of her legs. Past Medical History: Diagnosis Date Asthma Depression ROSI (obstructive sleep apnea) Past Surgical History: Procedure Laterality Date TONSILLECTOMY ADENOIDECTOMY 11/03/2009 Social History Socioeconomic History Marital status: Single Spouse name: Not on file Number of children: 1 Years of education: Not on file Highest education level: Not on file Occupational History Not on file Tobacco Use Smoking status: Never Smokeless tobacco: Never Vaping Use Vaping Use: Every day Start date: 11/06/2018 Substance and Sexual Activity Alcohol use: Never Drug use: Never Sexual activity: Yes Other Topics Concern Service No Blood Transfusions No Caffeine Concern No Occupational Exposure No Hobby Hazards No Sleep Concern Yes Stress Concern Yes Comment: mother is a stressor. Weight Concern No Special Diet No Back Care No Exercise Yes Bike Helmet Yes Seat Belt Yes Domestic Violence No Social History Narrative Not on file Social Determinants of Health Financial Resource Strain: Not on file Food Insecurity: Not on file Transportation Needs: Not on file Physical Activity: Not on file Stress: Not on file Social Connections: Not on file Intimate Partner Violence: Not on file Housing Stability: Not on file (Not in an outpatient encounter) No Known Allergies ROS: Constitutional: Well appearing, no fevers/chills. No lightheadedness or dizziness. Cardiovascular: No chest pain or palpitations. Respiratory: No shortness of breath, orthopnea, or dyspnea on exertion. Gastrointestinal: No nausea, vomiting, abdominal pain. OB: AROM clear Contractions. No nocturia, dysuria, or burning sensation on urination. Musculoskeletal: No joint pains, or myalgias. No weakness or falls. Neurological: No numbness or tingling. No paresthesias. Psychiatric: No mood swings, depression, anxiety. OBJECTIVE: BP 130/53 Pulse 91 Resp 16 Ht 1.6 m (5' 3 ) Wt 61.2 kg (135 lb) SpO2 97% BMI 23.91 kg/m Smoking Status Never Body mass index is 23.91 kg/m . GENERAL APPEARANCE: The patient is alert and oriented x3. HEENT: Normocephalic. Well-hydrated mucosa. VITAL SIGNS: Vital signs have been reviewed and are currently stable. HEART: Heart rate is regular without murmur. No peripheral edema. LUNGS: Clear to auscultation. Easy respirations. ABDOMEN: Is soft, non-tender, and gravid with a single fetus in a cephalic presentation by Natanael's Maneuver. HEART TONES: heart tones are a category 1 tracing. MEMBRANES: Intact GBS STATUS: unknown ASSESSMENT: Concha Alarcon is a 17 y.o. at 37w6d gestation Active phase labor. Intrauterine at term in active labor. Category I heart tones. Patient is in active labor Risks, benefits, alternatives and possible complications have been discussed in detail with the patient. All patient questions answered. PLAN: Admit to Labor and Delivery for Labor management Epidural for pain management AROM clear We will anticipate normal spontaneous vaginal delivery. Pablo Hernandez MD 11/28/2022 11:34 AM documented in this encounter [facility] 11-28-[address] Jones notified of patient arrival to floor. Informed of SVE, EFM tracing, and UC pattern. New orders received. [facility] 11-28-2022 Nurse Note Patient arrived to unit accompanied by security, significant other, and mother. CC of lost mucus plug and contractions. Oriented to room and placed on monitors. Triage assessment completed. [facility] 11-08-2022 Miscellaneous Notes Patient declined discharge AVS. Education provided on PTL symptoms and when to return. Encouraged her to call OB today and schedule follow-up appointment. Patient verbalizes understanding. Patient ambulates off unit with s/o. Patient arrived to unit with s/o for 2nd betamethasone. Patient denies contractions, LOF, or bleeding. Dr. Heredia on unit, states ok to give betamethasone and discharge home. documented in this encounter [facility] 11-08-2022 Nurse Note Patient declined discharge AVS. Education provided on PTL symptoms and when to return. Encouraged her to call OB today and schedule follow-up appointment. Patient verbalizes understanding. Patient ambulates off unit with s/o. [facility] 11-08-2022 Nurse Note Patient arrived to unit with s/o for 2nd betamethasone. Patient denies contractions, LOF, or bleeding. Dr. Heredia on unit, states ok to give betamethasone and discharge home. [facility] 05-23-2022 Hospital Discharge instructions Aj Jurado MD - 05/23/2022 6:04 PM EST You tested positive for influenza A during this visit today. Because you are , you are in a high risk group. As we discussed, we will be initiating Tamiflu for treatment of influenza. Return to the ED if you continue to have vomiting despite use of ondansetron and Diclegis at home, if you develop difficulty breathing, abdominal pain, vaginal bleeding or any other concerns. Please follow-up with your [facility] within the next 2 to 3 days. There is some bacteria in the urine. This can lead to some complications in . Because of this you are being started on Keflex, an antibiotic. The following attachments cannot be sent through Care Everywhere.Influenza: Teen (Libyan)documented in this encounter [employer] Phone: 03-02-2022 Hospital Discharge instructions Patient Education 03/02/2022 07:46:54 Immunization Schedule, 16 18 Years Old Immunization Schedule, 16 18 Years Old Vaccines are usually given at various ages, according to a schedule. You may need to get more than one dose of some vaccines because the protection or immunity can wear off over time. You need to get some vaccines every year because the germs that the vaccine protects you from can change from year to year. You may receive vaccines as individual doses or as more than one vaccine together in one shot (combination vaccines). Talk with your health care provider about the risks and benefits of combination vaccines. Recommended immunizations for 16 18 years old Hepatitis B vaccine You should get this dose only if you need to catch up on doses you missed in the past. Tetanus, diphtheria, and pertussis vaccine A preteen or an adolescent aged 11 18 years who is not fully immunized with the DTaP vaccine or has not received a dose of Tdap should get dose of Tdap vaccine. You should get this vaccine regardless of the length of time since the last dose of tetanus and diphtheria toxoid-containing vaccine. The Tdap dose should be followed with a Td dose every 10 years. adolescents should get 1 dose during each . The dose should be obtained regardless of the length of time since the last dose. Immunization is preferred during the 27th to 36th week of gestation. Haemophilus influenzae type b vaccine Individuals older than 5 years of age are usually not given this vaccine. However, individuals age 5 and older who have not been vaccinated, or are partially vaccinated, should get the vaccine if they have certain high-risk conditions. Pneumococcal conjugate vaccine You should get this vaccine as recommended if you have certain conditions. Pneumococcal polysaccharide vaccine You should get this vaccine as recommended if you have certain high-risk conditions. Polio vaccine Individuals 18 years or older usually do not receive the vaccine. Individuals younger than 18 years should get the vaccine, if needed, to catch up on doses that were missed in the past. Influenza vaccine You should get this dose every year. Measles, mumps, and rubella vaccine You should get this dose only if you need to catch up on doses you missed in the past. Varicella vaccine You should get this dose only if you need to catch up on doses you missed in the past. Hepatitis A vaccine If you did not get this vaccine before 2 years of age, you should get it only if you are at risk for infection or if you desire hepatitis A protection. Human papillomavirus vaccine You should get this dose only if you have not been given this vaccine before. If you got the first dose before your 15th birthday, you may get a 2-dose series. The second dose of the 2-dose series should be obtained 6 12 months after the first dose. If the second dose of the vaccine is obtained earlier than 5 months after the first dose, a third dose may be needed 12 weeks after the second dose. If vaccination was started after your 15th birthday, a 3-dose series should be obtained. The second dose should be obtained 4 weeks after the first dose, and the third dose should be obtained 12 weeks after the second dose. Meningococcal conjugate vaccine You should get this dose only if you need to catch up on doses you missed in the past. A booster should be obtained at age 16 years. Preteens and adolescents aged 11 18 years who have certain high-risk conditions should obtain 2 doses. Those doses should be obtained at least 8 weeks apart. Adolescents who are present during an outbreak or are traveling to a country with a high rate of meningitis should get the vaccine. Questions to ask your health care provider: Am I up to date on my vaccines? Do I need to delay, avoid, or skip any vaccines because of my health history? Are there any special vaccines that I need? What vaccines do I need for college? What vaccines do I need for school or sports? What vaccines do I need for travel? Contact a health care provider if you: Have pain where the shot was given, and the pain gets worse or does not go away after a couple of days. Have a fever. Get help right away if you: Develop signs of an allergic reaction, including: Itchy, red, swollen areas of skin (hives). Swelling of the face, mouth, or throat. Difficulty breathing, speaking, or swallowing. Summary At 16 18 years, you may need to receive vaccines to catch up on missed doses. Ask your health care provider if you are up to date on vaccines. You should get an annual flu shot (influenza vaccine). You may need other vaccines based on your health history. Talk with your health care provider if you have any other questions about vaccines or the vaccine schedule. This information is not intended to replace advice given to you by your health care provider. Make sure you discuss any questions you have with your health care provider. Document Released: 07/23/2018 Document Revised: 10/30/2019 Document Reviewed: 07/23/2018 Elsevier Patient Education 2020 [email or web address] [facility] 10-31-2021 Hospital Discharge instructions Sulaiman Ortiz MD - 10/31/2021 Gentle washing with plain soap and water, avoid any alcohol peroxide or other irritating products, layer of antibiotic ointment overlying to protect the the skin especially areas of the skin is broken open, nonadherent pad over the ointment to prevent sticking. Motrin/Tylenol for any pain Follow-up with primary care, return to ER if any symptoms change worse other concerns. The following attachments cannot be sent through Care Everywhere.Joseph: Pediatric (Libyan)documented in this encounter [facility] Work Phone: 10-03-2021 Hospital Discharge instructions Patient Education 10/03/2021 16:23:42 Managing Anxiety, Teen Managing Anxiety, Teen After being diagnosed with an anxiety disorder, you may be relieved to know why you have felt or behaved a certain way. You may also feel overwhelmed about the treatment ahead and what it will mean for your life. With care and support, you can manage this condition and recover from it. How to manage lifestyle changes Managing stress and anxiety Stress is your body's reaction to life changes and events, both good and bad. When you are faced with something exciting or potentially dangerous, your body responds by preparing to fight or run away. This response, called the [id number] response, is a normal response to stress. When your brain starts this response, it tells your body to move the blood faster and to prepare for the demands of the expected challenge. When this happens, you may experience: A faster heart rate than usual. Blood flowing to the large muscles. A feeling of tension and focus. Stress can last a few hours but usually goes away after the triggering event ends. If the effects last a long time, or if you are worrying a lot about things you cannot control, it is likely that your stress has led to anxiety. Although stress can play a major role in anxiety, it is not the same as anxiety. Anxiety is more complicated to manage and often requires special forms of treatment. Stress does play a part in causing anxiety, and thus it is important to learn how to manage your stress more effectively. Talk with your health care provider or a counselor to learn more about reducing anxiety and stress. He or she may suggest some ways to lower tension (tension reduction techniques), such as: Music therapy. This can include creating or listening to music that you enjoy and that inspires you. Mindfulness-based meditation. This involves being aware of your normal breaths while not trying to control your breathing. It can be done while sitting or walking. Deep breathing. To do this, expand your stomach and inhale slowly through your nose. Hold your breath for 3 5 seconds. Then exhale slowly, letting your stomach muscles relax. Self-talk. This involves identifying thought patterns that lead to anxiety reactions and changing those patterns. Muscle relaxation. This involves tensing muscles and then relaxing them. Visual imagery. This involves mental imagery to relax. Yoga. Through yoga poses, you can lower tension and promote relaxation. Choose a tension reduction technique that suits your lifestyle and personality. Techniques to reduce anxiety and tension take time and practice. Set aside 5 15 minutes a day to do them. Therapists can offer counseling for anxiety and training in these techniques. Medicines Medicines can help ease symptoms. Medicines for anxiety include: Anti-anxiety drugs. Antidepressants. Medicines are often used as a primary treatment for anxiety disorder. Medicines will be prescribed by a health care provider. When used together, medicines, psychotherapy, and tension reduction techniques may be the most effective treatment. Relationships Relationships can play a big part in helping you recover. Try to spend more time talking with a trusted friend or family member about your thoughts and feelings. Identify two or three people who you think might help. How to recognize changes in your anxiety Everyone responds differently to treatment for anxiety. Recovery from anxiety happens when symptoms decrease and stop interfering with your daily activities at home or work. This may mean that you will start to: Have better concentration and focus. Sleep better. Be less irritable. Have more energy. Have improved memory. Spend far less time each day worrying about things that you cannot control. It is important to recognize when your condition is getting worse. Contact your health care provider if your symptoms interfere with home, school, or work, and you feel like your condition is not improving. Follow these instructions at home: Activity Get enough exercise. Find activities that you enjoy, such as taking a walk, dancing, or playing a sport for fun. ?Most teens should exercise for at least one hour each day. ?If you cannot exercise for an hour, at least go outside for a walk. Get the right amount and quality of sleep. Most teens need 8.5 9.5 hours of sleep each night. Find an activity that helps you calm down, such as: ?Writing in a diary. ?Drawing or painting. ?Reading a book. ?Watching a funny movie. Lifestyle Spend time with friends. Eat a healthy diet that includes plenty of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
[2024-12-04 06:15] LABS: Hematocrit 42.2 % (36.0-48.0); Hemoglobin 13.5 g/dL (12.0-16.0); Immature Granulocytes Abs Auto 0.03 10^3/uL (0.00-0.03); Immature Granulocytes Pct Auto 0.3 % (0.0-0.5); Lymphocytes Absolute Auto 3.2 10^3/uL (1.2-3.8); Mean Corpuscular HGB Conc 32.0 g/dL (29.9-35.2); Mean Corpuscular Hemoglobin 28.4 pg (26.7-34.0); Mean Corpuscular Volume 88.7 fL (81.0-99.0); Platelet Count 267 10^3/uL (150-450); Red Blood Count 4.76 10^6/uL (4.20-5.40); White Blood Count 10.9 10^3/uL (4.0-11.0)
--- NOTE | 2024-12-04 08:18 | P.ON_ITS ---
Brief Operative Note Date of procedure: 12/04/24 Pre-op diagnosis general: pelvic pain Post-op diagnosis: same as pre-op Procedure: NAME OF PROCEDURE: [diagnostic laparoscopy ] PROCEDURE: The patient was taken back to the Operating Room where she was placed in dorsal lithotomy position after given general anesthesia. The patient was prepped and draped in normal sterile fashion. A sponge stick was placed into the patient's vagina. Attention was turned to the patient's abdomen, where a small umbilical incision was made. The fascia was tented using Gina clamps and the fascia was entered sharply. Confirmation of intraabdominal placement of the 10 mm port was confirmed under direct visualization using a laparoscope. The patient's abdomen was then insufflated using CO2 gas with approximately 4 liters. A second port was placed left laterally, this was done under direct visualization with a 5 mm port. Survey of the patient's abdomen demonstrated normal liver and gallbladder. Survey of the patient's pelvic anatomy demonstrated normal appearing rt and lt ovary and tubes as well as normal appearing uterus. No endometrial implants could be noted, no evidence of any pelvic disease was seen, normal appearing pelvic cavity. All instruments were removed from the patient's abdomen. The patient's abdomen was deinsufflated of CO2 gas. The patient tolerated the procedure well. Sponge stick was removed from the patient's vagina. The patient's infraumbilical fascia was closed using #0 Vicryl on a GI needle. The patient's skin was closed laterally and infraumbilically using 4-0 Vicryl. The patient tolerated the procedure well. Sponge, lap and needle counts were correct x 2. The patient was taken to Recovery Room in stable condition. Anesthesia: EDGAR Surgeon: Ross Rm Central Supply Worker: Melanie Martin Estimated blood loss (mL): 15 Pathology: none sent Condition: stable Disposition: PACU Urinary Catheter Management Urinary Catheter Management Straight: Cath placed during this visit: no
== END 2024-12-04 09:32 | disposition home or self-care (01) ==
LOC: SURGOUT 06:04
PROVIDERS: Visit Provider Obstetrics & Gynecology
PROC: (CPT 840; principal; 2024-12-04 07:30)
DX: R10.2 Pelvic and perineal pain (principal); N83.201 Unspecified ovarian cyst, right side; F17.290 Nicotine dependence, other tobacco product, uncomplicated; F31.9 Bipolar disorder, unspecified; F41.9 Anxiety disorder, unspecified
CPT/HCPCS: 49320; 36415; 84702; 85025; J1100; J2250; J2405; J2704; J3010